=== PATIENT | female | born 1975 | race Caucasian/White ===

== ENCOUNTER 2019-09-08 15:52 | Inpatient (IN) | payer OTHER, SELFPAY ==
[2019-09-08] VITALS (20 sets, daily range): BP systolic 113–200; BP diastolic 72–141; PULSE 83–116; RESP 12–36; TEMP 37–38.8; O2SAT 75–100; BMI 45.3; BMI 45.2
--- NOTE | 2019-09-08 15:56 | EKG12_ITS ---
Test Reason : SOB Blood Pressure : / mmHG Vent. Rate : 083 BPM Atrial Rate : 083 BPM P-R Int : 136 ms QRS Dur : 082 ms QT Int : 382 ms P-R-T Axes : 037 -10 029 degrees QTc Int : 448 ms Normal sinus rhythm Minimal voltage criteria for LVH, may be normal variant Nonspecific T wave abnormality Abnormal ECG Confirmed by SUSAN DUKE ([id number]), mapping editor ASHLI WISE ([id number]) on 09/10/2019 1:57:28 PM Referred By: Socrates Hernandez Confirmed By:SUSAN DUKE
--- NOTE | 2019-09-08 15:56 | RAD_ITS ---
STUDY: X-RAY CHEST REASON FOR EXAM: Female, 44 years old. Dyspnea TECHNIQUE: Frontal view of the chest COMPARISON: X-ray chest May 10, 2011 FINDINGS: There is a right lower lung zone atelectasis and/or infiltrate. There are no pleural effusions. There is no pneumothorax. The heart is normal in size. The visualized osseous structures are within normal limits. RAD/Chest 1 View (Portable) IMPRESSION: Right lower lung zone atelectasis and/or infiltrate. Electronically Signed: Teodoro Brooks, at 16:30 EST Tel , Service support ,
--- NOTE | 2019-09-08 16:03 | NURSING ---
NO OLD EKGS
[2019-09-08 16:08] LABS: Absolute Lymphocyte Count 0.77 X10^3/uL (0.83-4.51); Basophil# 0.06 X10^3/uL; Basophil% 0.4 % (0-1); Eosinophil# 0.01 X10^3/uL; Eosinophils% 0.1 % (0-5); Hematocrit 46.7 % (37-47); Hemoglobin 15.3 g/dL (12.0-15.0); Lymphocyte # 0.77 X10^3/ul (4.0); Lymphocyte % 4.7 % (19-41); Mean Corp Hgb Conc 32.8 g/dL (32-36); Mean Corpuscular Hgb 29.7 pg (27.0-32.0); Mean Corpuscular Volume 90.7 fL (81-99); Monocyte# 1.38 X10^3/uL; Monocyte% 8.5 % (0-10); NRBC Flagged by Analyzer 0 % (0-5); Neutrophil # 13.95 X10^3/uL (2.7-7.7); Neutrophil % 85.6 % (47-70); Platelet Count 270 K/mm3 (150-450); RBC Distribution Width CV 13.6 % (11.6-14.6); Red Blood Count 5.15 M/mm3 (4.2-5.4); White Blood Count 16.3 K/mm3 (4.4-11.0)
[2019-09-08] MEDS: MethylPREDNISolone 125 MG/2 ML Vial IV (16:08)
[2019-09-08] MEDS: Ipratropium/Albuterol Sulfate 3 ML AMPUL.NEB INHALATION ×3 (16:13→22:55)
[2019-09-08] MEDS: 0.9% Normal Saline 1,000 ML 150 ML IV (16:16)
[2019-09-08] MEDS: Albuterol 2.5 MG/3 ML VIAL.NEB. INHALATION ×3 (16:17→16:18)
[2019-09-08 16:34] LABS: Anion Gap 5 (5-15); BUN 11 mg/dL (7-18); BUN/Creat Ratio 11.9 RATIO (10-20); Calcium,Total 9.2 mg/dL (8.5-10.1); Chloride 106 mmol/L (98-107); Creatinine, Serum 0.92 mg/dL (0.55-1.02); EST Glomerular Filtration Rate 70 mL/min (>60); Est Glom Filt Rate - Afr Amer 84 mL/min (>60); Estimated Creatinine Clearance 65.98 ml/min; Glucose 122 mg/dL (74-106); Lactic Acid 1.3 mmol/L (0.4-1.9); Potassium 4.4 mmol/L (3.5-5.1); Sodium Level 137 mmol/L (136-145)
[2019-09-08 16:46] LABS: Allen Test POS; Base Excess -1 mmol/L (-2 to +2); Bicarbonate 24.2 mmol/L (22-26); Blood Gas Specimen Type ART; EPAP 8; FI02 100; IPAP 16; PO2 89 mmHG (75-100); RR 12; SITE L Radial; SO2 96 % (95-99); Time Given 1635; Total Carbon Dioxide 26 mmol/L; pCO2 43.3 mmHg (35-45); pH 7.36 (7.35-7.45)
--- NOTE | 2019-09-08 16:55 | NURSING ---
DR MERINO FOR DR PORTER
[2019-09-08 16:57] LABS: D-Dimer Quantitative (DVT/PE) 1.27 FEU/ug/m (0.27-0.49)
--- NOTE | 2019-09-08 16:59 | ED.VISSUMM ---
- ER Visit Summary Date of Service: 09/08/19 Chief Complaint: [Fever and cough] History of Present Illness: The patient is a 44 F [presents the emergency department with symptoms that started yesterday. Patient started coughing and having increased difficulty breathing yesterday. Cough is been productive at times. Breathing got severe today. She denies recent travel or surgery. No history of PE or DVT. Patient states she had pneumonia 12 years ago. Patient has no medical history otherwise. Patient is a smoker. She denies sick contacts.] Physical Examination: [HEENT-PERRLA, EOMI. Cranial nerves II through XII grossly intact. TMs clear. Mucous membranes moist. No adenopathy. Cardiovascular-regular rate and rhythm without murmur or ectopy Lungs-patient arrives in respiratory distress. She has diminished breath sounds bilaterally. She is tachypneic with conversational dyspnea. She is got accessory muscle use and retractions noted. Patient has wheezing throughout. He has rhonchi and rales especially in the right base. Abdomen-normoactive bowel sounds, soft, nontender, no rebound or rigidity, no peritoneal signs. Extremities-intact ?4, normal range of motion, normal pulses, atraumatic] Test Results: [CBC with differential obtained showing a 16.3, hemoglobin 15, hematocrit 47, placed to 70. Chemistries unremarkable. Troponin is less than 0.015. Lactate was 1.3. Influenza was negative. Chest x-ray showed right lower lobe infiltrate. D-dimer obtained was elevated 1.27.] Blood gas obtained showed a pH of 7.35, CO2 of 43, PO2 of 89, bicarb 24, pulse ox of 96% on an FiO2 of 100%. The screen was negative. Emergency Department Course and Treatment: [She was started on BiPAP. Patient had good improvement in respiratory status with this. Patient was given DuoNeb aerosol as well as albuterol aerosols. Patient started on Solu-Medrol 125 mg IV. Patient started on Rocephin and Zithromax IV. Treatment Plan: [Admit] Disposition: [Admit] Impression: [Community-acquired pneumonia Hypoxemia Respiratory failure] This note was generated with [employer] software. It may contain incorrect words, spelling, and punctuation that were not noted in review of the chart prior to signing ED Disposition - Plan for ED Patient: Referrals: Fast,Sandy, DO [Primary Care Provider] -
--- NOTE | 2019-09-08 16:59 | NURSING ---
ICU [facility] PNEUMONIA, HYPOXIA, RESP FAILURE
--- NOTE | 2019-09-08 17:07 | NURSING ---
CV ICU 203
[2019-09-08] MEDS: Ceftriaxone 1 GM/50 ML BAG IV (17:10)
--- NOTE | 2019-09-08 17:10 | HP.PCM_ITS ---
<Karthik Harry - Last Filed: 09/08/19 17:10> Problem List (1) Acute respiratory failure with hypoxia Status: Acute (2) Sepsis Status: Acute (3) Pneumonia Status: Acute (4) SREE (obstructive sleep apnea) Status: Chronic (5) Morbid obesity Status: Chronic (6) HTN (hypertension) Status: Chronic History of Present Illness Date of Admission: 09/08/19 Chief Complaint: SOB The patient is a 44 year old F with past medical history of obstructive sleep apnea, noncompliant with CPAP therapy, morbid obesity, nicotine abuse (3/4 ppd smoker since age 11), questionable diagnosis of COPD, depression, who presented to the emergency room with chief complaint of shortness of breath. The patient has been sick since Monday night. She woke up feeling ill she had an episode of nausea and vomiting. She was having increased sinus drainage and cough. Over the next several days she developed severe chills, worsening cough with yellow sputum production, and shortness of breath. 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 She has had pneumonia once before about 12 years ago. She thinks she may have COPD however she denies formal testing in the past. She does report pleuritic chest pain, worse with deep breathing on the right side. When she arrived in the ER she was 75% on room air. She normally does not need any oxygen at baseline. She was placed on BiPAP as she was satting poorly on 15 L/min nonrebreather. She appears to have sepsis secondary to pneumonia, chest x-ray shows right lower lobe pneumonia, she has a fever, tachypnea, pulse greater than 90, negative lactate. Blood pressure is also markedly elevated in the emergency room. She will be admitted to the ICU on BiPAP. [] Past Medical History Past Medical History (Chronic Problems): Chronic Problems SREE (obstructive sleep apnea) (Chronic) Morbid obesity (Chronic) HTN (hypertension) (Chronic) Allergies Jrvtvin-Coy-Ksj Reductase Inhibitor Allergy (Verified 09/08/19 15:56) Swelling Home Medications: Ambulatory Orders Medication Instructions Recorded Bupropion HCl [Wellbutrin Sr] 100 mg PO BID 09/08/19 Surgical History: cholecystectomy Psychiatric History: Depression [employer] History: No pertinent [employer] history Lives: Spouse/ Significant Other Smoking Status: Current every day smoker Review of Systems Constitutional: Reports: Chills, Fever, Fatigue. Denies: Weight Change HEENT: Denies: Head Aches, Sinus Congestion, Sinus Drainage Cardiovascular: Denies: Chest Pain, Palpitations Respiratory: Reports: Cough, Pleuritic Pain, Shortness of Breath, Shortness of breath at rest, Shortness of breath upon exertion, Sputum production. Denies: Hemoptysis Gastrointestinal: Reports: Nausea, Vomiting. Denies: Abdominal Pain Genitourinary: Denies: Dysuria Musculoskeletal: Denies: Joint Pain, Joint Tenderness Skin: Denies: Rash, Wounds Neurological: Denies: Numbness, Tingling, Focal weakness Psychiatric: Denies: Anxiety, Depression, Homicidal Ideations, Suicidal Ideations Hematologic/ Lymphatic: Denies: Easy Bruising, Easy Bleeding VTE Information - Inpt Only VTE Present on Admission: No VTE Mechan Device Prophylaxis: None VTE Pharm Prophylaxis ordered?: Yes Patient Problems: Active and Suspected Problems Acute respiratory failure with hypoxia (Acute) Pneumonia (Acute) Sepsis (Acute) - Physical Exam Vitals/I&O's: Vital Signs Temp Pulse Resp BP Pulse Ox 101.8 F H 89 28 H 200/89 H 95 09/08/19 15:56 09/08/19 16:19 09/08/19 16:19 09/08/19 16:19 09/08/19 16:19 Oxygen Flow Rate (L/min) 15 Oxygen Delivery Method Bi-pap Weight: 264 lb 6.4 oz Body Mass Index (BMI) 45.3 General: Alert, Oriented x3, Cooperative HEENT: Atraumatic, PERRLA, EOMI, Normocephalic Neck: Supple, No JVD, Negative Carotid Bruits Lungs: Diminished, Rales - Right middle and right lower lobe rales, Wheezes - Faint end expiratory wheeze Cardiovascular: Regular rate, No murmurs Abdomen: Bowel Sounds Present, Soft, Non Tender, Obese Extremities: No edema, Capillary Refill Less than 3 Seconds Skin: No rashes, No breakdown Musculoskeletal: No Tenderness to Palpation of Joints or Extremities Neurological: Cranial nerves II-XII grossly intact Psych/Mental Status: Normal Affect, Appropriate, Alert and oriented to time, place, person, mood and affect Microbiology Past 72 Hours 09/08/19 16:05 Mucosa - Nasopharyngeal Influenza Types A,B Direct FA (BRANDON) - Final Laboratory Results 09/08/19 16:00: WBC 16.3 H, RBC 5.15, Hgb 15.3 H, Hct 46.7, MCV 90.7, MCH 29.7, MCHC 32.8, RDW Std Deviation 45.0 H, RDW Coeff of Km 13.6, Plt Count 270, MPV 11.0, Immature Gran % (Auto) 0.700, Neut % (Auto) 85.6 H, Lymph % (Auto) 4.7 L, [place] % (Auto) 8.5, Eos % (Auto) 0.1, Baso % (Auto) 0.4, Absolute Neuts (auto) 14.0 H, Absolute Lymphs (auto) 0.77 L, Nucleated RBC % 0 09/08/19 16:00: D-Dimer Quant (PE/DVT) Cancelled 09/08/19 16:00: Sodium 137, Potassium 4.4, Chloride 106, Carbon Dioxide 26.0, Anion Gap 5, BUN 11, Creatinine 0.92, Estim Creat Clear Calc 65.98, Est GFR (MDRD) Af Amer 84, Est GFR (MDRD) Non-Af 70, BUN/Creatinine Ratio 11.9, Glucose 122 H, Calcium 9.2, Troponin I < 0.015 09/08/19 16:00: Lactic Acid 1.3 09/08/19 16:25: D-Dimer Quant (PE/DVT) 1.27 H* 09/08/19 16:40: Specimen Type ART, Sample Site L Radial, pH 7.36, Bicarbonate Actual 24.2, POC Total CO2 26, Base Excess -1, O2 Saturation 96, O2 % 100, ABG p CO2 43.3, ABG pO2 89, Ady Test POS, Respiration Rate 12, O2 Delivery Device Bi / C PAP, EPAP 8, IPAP 16, Blood Gas Notified Whom ED MD, Blood Gas Notified Time 1635 Current Medications Sodium Chloride () 1,000 mls @ 150 mls/hr IV .Q6H40M ONE Stop: 09/08/19 22:35 Last Admin: 09/08/19 16:16 Dose: 150 mls/hr Documented by: Ceftriaxone Sodium (Rocephin) 1 gm in 50 mls @ 100 mls/hr IV X1 ONE Stop: 09/08/19 17:14 Last Admin: 09/08/19 17:10 Dose: 100 mls/hr Documented by: Azithromycin 500 mg/ Dextrose 255 mls @ 250 mls/hr IV X1 ONE Stop: 09/08/19 17:46 Assessment/Plan All Active Problems Acute respiratory failure with hypoxia (Acute) Pneumonia (Acute) Sepsis (Acute) 1. Right lower lobe pneumonia, arbqtsrki-fbgpgkaf-nxzbwns was 75% on room air, required BiPAP in the emergency room. Sepsis criteria met with fever with T-max 101.8, tachypnea, pulse greater than 90, leukocytosis right lower lobe infiltrate on chest x-ray. On BiPAP her ABG was within normal limits. D-dimer is elevated, will obtain CTA of the chest. Lactic acid is negative. Troponin is negative. Obtain urine antigens, obtain respiratory panel. Rapid flu was negative. Obtain sputum cultures, blood cultures, urine culture. 2. Questionable underlying COPD-patient says she may have this however was never formally tested, does not use aerosols at home. She has been placed on aerosols and Solu-Medrol. She needs outpatient pulmonary follow-up with PFTs. 3. Obstructive obstructive sleep apnea-noncompliant with CPAP at home. Continue BiPAP while here. 4. Hypertensive urgency-BP up to 200/89 in the emergency room. Will add PRN hydralazine. 5. Morbid obesity-calorie controlled diet and dietitian evaluation. 6. Nicotine abuse-patch if desired. Smokes 3/4 packs/day since age 11. 7. Depression-Wellbutrin DVT prophylaxis: Lovenox This patient was seen by Karthik Harry PA-C under the supervision of Doctor Mary. <Socrates Hernandez F - Last Filed: 09/08/19 17:33> History of Present Illness The patient is a 44 year old F [] Past Medical History Allergies Wefzxrl-Frg-Yci Reductase Inhibitor Allergy (Verified 09/08/19 15:56) Swelling - Physical Exam Vitals/I&O's: Vital Signs Temp Pulse Resp BP Pulse Ox 98.9 F 112 H 26 H 172/80 H 99 09/08/19 17:00 09/08/19 17:00 09/08/19 17:00 09/08/19 17:00 09/08/19 17:00 Oxygen Flow Rate (L/min) 15 Oxygen Delivery Method Bi-pap Weight: 264 lb 6.4 oz Body Mass Index (BMI) 45.3 Microbiology Past 72 Hours 09/08/19 16:05 Mucosa - Nasopharyngeal Influenza Types A,B Direct FA (BRANDON) - Final Laboratory Results 09/08/19 16:00: WBC 16.3 H, RBC 5.15, Hgb 15.3 H, Hct 46.7, MCV 90.7, MCH 29.7, MCHC 32.8, RDW Std Deviation 45.0 H, RDW Coeff of Km 13.6, Plt Count 270, MPV 11.0, Immature Gran % (Auto) 0.700, Neut % (Auto) 85.6 H, Lymph % (Auto) 4.7 L, [place] % (Auto) 8.5, Eos % (Auto) 0.1, Baso % (Auto) 0.4, Absolute Neuts (auto) 14.0 H, Absolute Lymphs (auto) 0.77 L, Nucleated RBC % 0 09/08/19 16:00: D-Dimer Quant (PE/DVT) Cancelled 09/08/19 16:00: Sodium 137, Potassium 4.4, Chloride 106, Carbon Dioxide 26.0, Anion Gap 5, BUN 11, Creatinine 0.92, Estim Creat Clear Calc 65.98, Est GFR (MDRD) Af Amer 84, Est GFR (MDRD) Non-Af 70, BUN/Creatinine Ratio 11.9, Glucose 122 H, Calcium 9.2, Troponin I < 0.015 09/08/19 16:00: Lactic Acid 1.3 09/08/19 16:25: D-Dimer Quant (PE/DVT) 1.27 H* 09/08/19 16:40: Specimen Type ART, Sample Site L Radial, pH 7.36, Bicarbonate Actual 24.2, POC Total CO2 26, Base Excess -1, O2 Saturation 96, O2 % 100, ABG pCO2 43.3, ABG pO2 89, Ady Test POS, Respiration Rate 12, O2 Delivery Device Bi / C PAP, EPAP 8, IPAP 16, Blood Gas Notified Whom ED MD, Blood Gas Notified Time 1639 Current Medications Sodium Chloride () 1,000 mls @ 150 mls/hr IV .Q6H40M ONE Stop: 09/08/19 22:35 Last Admin: 09/08/19 16:16 Dose: 150 mls/hr Documented by: Azithromycin 500 mg/ Dextrose 255 mls @ 250 mls/hr IV X1 ONE Stop: 09/08/19 17:46 Labetalol HCl (Trandate) 10 mg IV Q4H PRN PRN PRN Reason: SBP GREATER THAN 180 Code Visit Addendum: Dr. Hernandez I personally examined the patient and reviewed the chart. I agree with the above. 44-year-old female with morbid obesity and SREE but she is noncompliant with her CPAP presents in respiratory distress with sepsis and acute hypoxic respiratory failure secondary to right lower lobe pneumonia. Initial flu was negative however a further respiratory panel is being done. She also had an elevated d-dimer so CTA of her chest was obtained as well. We will continue with IV fluids and BiPAP therapy and place her on Rocephin and azithromycin. She will be admitted to the ICU and also placed on steroids and DuoNeb's as she does have some expiratory wheezing on exam. She says that her primary care doctor has been concerned that she might have COPD but she is never been tested. Also provide her with PRN labetalol for her blood pressures up into the 200s. Inpatient E&M: 54939 Init Hosp L3
[2019-09-08] MEDS: Ketorolac 30 MG/ML Syringe IV (17:24)
--- NOTE | 2019-09-08 17:39 | ED.RN ---
called report to Art in ICU
--- NOTE | 2019-09-08 17:51 | CT_ITS ---
STUDY: CTA CHEST REASON FOR EXAM: Female, 44 years old. Shortness of breath, possible pulmonary embolism RADIATION DOSAGE (If Supplied By Facility): CTDIvol = ( 12.66 ) mGy, DLP = ( 539.46 ) mGycm TECHNIQUE: The examination was performed with the intravenous administration of IV 100mL Isovue-370. Post-processing of the angiographic images was performed, with multiplanar reformation and 3D reconstruction. Individualized dose optimization techniques were used for this CT. COMPARISON: None. FINDINGS: Examination is technically degraded due to patient''s large body habitus resulting in severely elevated image noise. There is suboptimal contrast enhancement and amount resulting in heterogeneous attenuation in the noncentral pulmonary arteries. Some diagnostic information is available. There is no large central acute pulmonary embolism. Lobar and segmental arteries are not reliably evaluated. There is no right heart strain. Cardiac chambers are normal in size and shape. Pericardium is normal. There is pectus excavatum deformity of the sternum. There are multiple predominantly upper and anterior distribution lobular groundglass opacities and right upper lobe posterior segment irregular consolidation. Central airways are patent. There is no pulmonary edema or pleural effusions. There is severe elevation of body habitus. CT/CTA Chest W/WO Contrast IMPRESSION: 1. Technically limited examination. 2. No large acute central pulmonary embolism. 3. Unable to evaluate lobar and segmental branches. 4. Recommend ultrasonography of the lower extremity venous system to exclude presence of deep venous thrombosis and complete the risk stratification of the patient at risk for venous thromboembolic disease. 5. Atypical distribution anterior and upper lobe ground glass opacities. This appearance is nonspecific, possibly related to viral pneumonia. 6. Pectus excavatum congenital sternal deformity. 7. Severely elevated BMI. Electronically Signed: Oumar Ozuna, at 19:15 EST Tel , Service support ,
[2019-09-08] MEDS: 0.9% Normal Saline 1,000 ML 125 ML IV (20:05)
[2019-09-08] MEDS: LORazepam 2 MG/ML Syringe 1 MG IV (22:43)
[2019-09-09] VITALS (55 sets, daily range): BP systolic 77–148; BP diastolic 44–96; PULSE 65–110; RESP 14–29; TEMP 36.4–38.4; O2SAT 92–100; BMI 45.1
--- NOTE | 2019-09-09 00:35 | NURSING ---
Nicolas Nagel, notified of patient intubation, and was told we are currently awaiting the dr to come on the floor and respiratory to get to the floor to proceed with intubation at this time. would like for us to notify him after the intubation to let him know how she tolerated the procedure.
--- NOTE | 2019-09-09 00:40 | NURSING ---
Pt having increased work of breathing on BiPap. After discussion with pt, pt agreed to be intubated. was contacted for update on pt condition and consent, due to pt inability to sign.
--- NOTE | 2019-09-09 00:45 | NURSING ---
Dr. Rasmussen at bedside to intubate. 0049 20mg etomidate given 48 succs 110mg given per Dr. Rasmussen 005 intubation unsuccessful, no color change noted 005 ett removed, pt bagged by respiratory in preparation for attempt 2 58 fentanyl 50mcg given, versed 4mg given 100 100mg succs given per dr rasmussen 101 ETT 7.5 placed 25 at lip, positive color change, lissa breath sounds
[2019-09-09] MEDS: Etomidate 20 MG/10 ML Vial IV (00:49)
[2019-09-09] MEDS: 0.9% Saline Lock 10 ML Syringe IV ×3 (00:50→21:29)
[2019-09-09] MEDS: fentaNYL 100 MCG/2 ML Ampul 50 MCG IV (00:59)
[2019-09-09] MEDS: Midazolam 2 MG/2 ML Syringe 4 MG IV (00:59)
[2019-09-09] MEDS: fentaNYL drip 100 ML 2.5 MCG IV (01:05)
--- NOTE | 2019-09-09 01:05 | RAD_ITS ---
STUDY: X-RAY CHEST REASON FOR EXAM: Female, 44 years old. ET AND OG TUBE PLACEMENTS -- BEST IMAGES POSSIBLE, PATIENT WOULD NOT HOLD STILL TECHNIQUE: 1 view COMPARISON: September 08, 2019 FINDINGS: An NG tube and ET tube are in place with the ET tube 3.2 cm above the evan. The heart is normal in size. There are patchy areas of consolidations in the left midlung field and in the right upper and lower lung hanley. Pneumonia suspected. No pleural effusions. Normal visualized thoracic spine. Normal visualized ribs, clavicles, and shoulders. There is no demonstrated abnormality of the visualized soft tissue structures of the upper abdomen. RAD/Chest 1 View (Portable) IMPRESSION: NG tube and ET tube in place with the ET tube 3.2 cm above the evan. Patchy consolidations in both lungs. Pneumonia suspected Electronically Signed: Perfecto Espinoza MD at 2:57 EST Tel , Service support ,
--- NOTE | 2019-09-09 01:07 | PCM.PN.BLA ---
Progress Note Critical care notes: Initial nurse reported that patient is having tachypnea and was anxious. Ativan IV was given. However patient continued to have increased respiratory distress with tachypnea. Patient requested to be intubated. Patient was examined at the bedside. Patient was lethargic. S1-S2 present; tachycardia. Tachypnea with diffuse rhonchi. Extremities without edema. Acute respiratory failure secondary to sepsis from pneumonia. Possible gram-negative or gram-negative . Will intubate patient. On ceftriaxone and azithromycin. Will give a one-time dose of vancomycin and will check MRSA nasal screen. Stop ceftriaxone and azithromycin for now. And start patient on Zosyn. Continue hjuzby-amq-toqds Solu-Medrol. Stress ulcer prophylaxis with Pepcid. Continue DVT prophylaxis with enoxaparin. Critical time 35 minutes from 1225 a.m. to 1:00. Critical time include time at the bedside with patient reviewing charts and communicating with nursing team. It did not include intubation time STROKE Vital Signs/Narrative: Vital Signs Temp Pulse Resp BP BP Pulse Ox 09/09/19 00:00 101.1 F H 107 H 26 H 148/64 H 94 09/08/19 23:37 116 H 09/08/19 23:00 96 28 H 172/88 H 93 09/08/19 22:00 97 32 H 172/98 H 96
--- NOTE | 2019-09-09 01:08 | PN_ITS ---
Progress Note Insert ET Endotracheal Intubation Note Indication: Respiratory Distress Performed by: Dr. Tree Fu Initially etomidate 20 mg and succinylcholine 100 mg was given and an attempt was made to intubate with a 7.5?Ukrainian endotracheal tube and with a glide scope. After attempted intubation there was no color change and patient was noted to be dropping in her oxygen saturation. Patient was Ambu bagged. Versed 4 mg and fentanyl 50 mg was then given in attempt to reintubate patient with direct laryngoscopy. Patient started clamping on her jaws and additional succinylcholine 100 mg was given. ET tube was placed at the lips. There was color change. And there was bilateral breath sounds. Chest x-ray independently reviewed showed endotracheal tube in trachea. Patient with oxygen saturation in the high 90s. STROKE Vital Signs/Narrative: Vital Signs Temp Pulse Resp BP BP Pulse Ox 09/09/19 00:00 101.1 F H 107 H 26 H 148/64 H 94 09/08/19 23:37 116 H 09/08/19 23:00 96 28 H 172/88 H 93 09/08/19 22:00 97 32 H 172/98 H 96 Code Visit Procedures: [id number] Insert Emergency Airway
[2019-09-09] MEDS: Propofol 10MG/Ml 1,000 MG/100 ML Bottle 7.2 MG CONT INF (01:10)
[2019-09-09] MEDS: Ipratropium/Albuterol Sulfate 3 ML AMPUL.NEB INHALATION ×7 (01:57→22:50)
[2019-09-09 03:25] LABS: Allen Test POS; Base Excess -2 mmol/L (-2 to +2); Bicarbonate 24.9 mmol/L (22-26); Blood Gas Specimen Type ART; FI02 80; Mode A-C; O2 Delivery Device Vent; PEEP 5; PO2 80 mmHG (75-100); RR 14; SITE L Radial; SO2 93 % (95-99); Time Given 315; Total Carbon Dioxide 27 mmol/L; Vt 500; pCO2 57.3 mmHg (35-45); pH 7.25 (7.35-7.45)
[2019-09-09 04:44] LABS: Absolute Lymphocyte Count 0.47 X10^3/uL (0.83-4.51); Absolute Neutrophil Count 21.5 X10^3/uL (2.0-7.7); Basophil# 0.04 X10^3/uL; Basophil% 0.2 % (0-1); Eosinophil# 0.11 X10^3/uL; Eosinophils% 0.5 % (0-5); Hematocrit 42.5 % (37-47); Hemoglobin 13.5 g/dL (12.0-15.0); Lymphocyte # 0.47 X10^3/ul (4.0); Mean Corp Hgb Conc 31.8 g/dL (32-36); Mean Corpuscular Hgb 29.1 pg (27.0-32.0); Mean Corpuscular Volume 91.6 fL (81-99); Mean Platelet Vol. 11.3 fl (6.2-12.0); Monocyte% 4.7 % (0-10); NRBC Flagged by Analyzer 0 % (0-5); Neutrophil # 21.46 X10^3/uL (2.7-7.7); POSITIVE DIFFERENTIAL YES; POSITIVE MORPHOLOGY YES; Platelet Count 235 K/mm3 (150-450); RBC Distribution Width CV 14.1 % (11.6-14.6); RBC Distribution Width SD 47.1 fl (35.1-43.9); Red Blood Count 4.64 M/mm3 (4.2-5.4); White Blood Count 23.3 K/mm3 (4.4-11.0)
[2019-09-09 04:52] LABS: Differential Indicated SCAN CRITERIA MET
[2019-09-09] MEDS: CHLORHEXIDINE GLUC 2% CLOTH 1 EACH TOWELETTE TOPICAL (04:58)
[2019-09-09 05:17] LABS: Anion Gap 7 (5-15); BUN 15 mg/dL (7-18); BUN/Creat Ratio 11.6 RATIO (10-20); CPK Total, Creatine Kinase 618 U/L (26-192); Chloride 105 mmol/L (98-107); Creatinine, Serum 1.29 mg/dL (0.55-1.02); EST Glomerular Filtration Rate 47 mL/min (>60); Est Glom Filt Rate - Afr Amer 57 mL/min (>60); Estimated Creatinine Clearance 47.06 ml/min; Glucose 192 mg/dL (74-106); Potassium 4.2 mmol/L (3.5-5.1); Sodium Level 137 mmol/L (136-145); Triglycerides 80 mg/dL
[2019-09-09] MEDS: Propofol 10MG/Ml 1,000 MG/100 ML Bottle 17.9 MG CONT INF (05:35)
[2019-09-09 06:08] LABS: Differential Comment SCANNED
--- NOTE | 2019-09-09 06:35 | CON.PCM_ITS ---
Reason for Consult Date of Consultation: 09/09/19 Reason for Consultation: Acute respiratory failure History of Present Illness: The patient is a 44-year-old female, with a history as outlined below, who presented to the emergency department on September 08 with complaints of shortness of breath, fever and cough. The patient has an apparent history of suspected COPD, obstructive sleep apnea for which she is noncompliant with the use of nocturnal Pap therapy, chronic nicotine dependency and depression. On presentation to the emergency department, the patient was noted to be febrile with a temperature of 101.8 ?F. The patient was tachypneic and hypoxemic, saturating 75% on room air. Initial laboratory evaluation revealed an elevated white blood cell count to 16,000 with left shift. D-dimer was elevated at 1.27. Chemistry profile was unremarkable. Lactate was within normal limits at 1.3. Troponin was negative. MRSA screen was negative. Plain film chest x-ray revealed evidence of a possible right lower lobe infiltrate. A CTA chest was subsequently obtained and was significantly limited due to patient artifact. There was evidence of nonspecific upper lobe predominant groundglass opacities. Due to the patient's respiratory status, she was placed on BiPAP therapy. The p atient was given aerosol treatments, IV steroids and IV antibiotics. She was subsequently admitted to the medical intensive care unit for further management. Overnight, the patient decompensated from a respiratory standpoint and did require emergent intubation. 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 - Physical Exam Vitals/I&O's: Vital Signs Temp Pulse Resp BP Pulse Ox 98.6 F 82 16 91/48 L 94 09/09/19 06:00 09/09/19 06:00 09/09/19 06:00 09/09/19 06:00 09/09/19 06:00 Oxygen Flow Rate (L/min) 6 Oxygen Delivery Method Mechanical Ventilator Weight: 262 lb 9.129 oz Body Mass Index (BMI) 45.2 Intake and Output for Last 24 Hours 09/07/19 09/08/19 09/09/19 23:59 23:59 23:59 Intake Total 1727.08 / 1727.08 499.89 / 499.89 Output Total 300 / 300 65 / 65 Balance 1427.08 / 1427.08 434.89 / 434.89 General: - - Intubated, sedated and mechanically ventilated. HEENT: Atraumatic, PERRLA, Normocephalic Oral: No Gingival or Mucosal Lesions/ Ulcerations, - - Endotracheal and OG tubes currently in place Neck: Supple, No Nodes, Trachea Midline Lungs: No rhonchi, No wheeze, No rales, Diminished Cardiovascular: Regular rate, Regular Rhythm, Normal S1, Normal S2, No murmurs Abdomen: Bowel Sounds Present, Soft, Non Tender, Obese Extremities: No clubbing, No cyanosis, No edema Skin: No breakdown Musculoskeletal: No Tenderness to Palpation of Joints or Extremities Lymphatic: No Cervical, Supraclavicular, or Inguinal Adenopathy Neurological: - - No focal neurological deficits. Currently sedated on the vent. Labs (Last 48 Hours) 09/08/19 09/08/19 09/08/19 16:00 16:00 16:00 WBC 16.3 H RBC 5.15 Hgb 15.3 H Hct 46.7 MCV 90.7 MCH 29.7 MCHC 32.8 RDW Std Deviation 45.0 H RDW Coeff of Km 13.6 Plt Count 270 MPV 11.0 Immature Gran % (Auto) 0.700 Neut % (Auto) 85.6 H Lymph % (Auto) 4.7 L [place] % (Auto) 8.5 Eos % (Auto) 0.1 Baso % (Auto) 0.4 Absolute Neuts (auto) 14.0 H Absolute Lymphs (auto) 0.77 L Nucleated RBC % 0 Differential Comment D-Dimer Quant (PE/DVT) Cancelled Specimen Type Sample Site pH Bicarbonate Actual POC Total CO2 Base Excess O2 Saturation O2 % ABG pCO2 ABG pO2 Ady Test Respiration Rate O2 Delivery Device Vent Mode Tidal Volume POC PEEP EPAP IPAP Blood Gas Notified Whom Blood Gas Notified Time Sodium 137 Potassium 4.4 Chloride 106 Carbon Dioxide 26.0 Anion Gap 5 BUN 11 Creatinine 0.92 Estim Creat Clear Calc 65.98 Est GFR (MDRD) Af Amer 84 Est GFR (MDRD) Non-Af 70 BUN/Creatinine Ratio 11.9 Glucose 122 H Lactic Acid Calcium 9.2 Total Creatine Kinase Troponin I < 0.015 Triglycerides MRSA (PCR) 09/08/19 09/08/19 09/08/19 16:00 16:25 16:40 WBC RBC Hgb Hct MCV MCH MCHC RDW Std Deviation RDW Coeff of Km Plt Count MPV Immature Gran % (Auto) Neut % (Auto) Lymph % (Auto) [place] % (Auto) Eos % (Auto) Baso % (Auto) Absolute Neuts (auto) Absolute Lymphs (auto) Nucleated RBC % Differential Comment D-Dimer Quant (PE/DVT) 1.27 H* Specimen Type ART Sample Site L Radial pH 7.36 Bicarbonate Actual 24.2 POC Total CO2 26 Base Excess -1 O2 Saturation 96 O2 % 100 ABG pCO2 43.3 ABG pO2 89 Ady Test POS Respiration Rate 12 O2 Delivery Device Bi / C PAP Vent Mode Tidal Volume POC PEEP EPAP 8 IPAP 16 Blood Gas Notified Whom ED Blood Gas Notified Time 1635 Sodium Potassium Chloride Carbon Dioxide Anion Gap BUN Creatinine Estim Creat Clear Calc Est GFR (MDRD) Af Amer Est GFR (MDRD) Non-Af BUN/Creatinine Ratio Glucose Lactic Acid 1.3 Calcium Total Creatine Kinase Troponin I Triglycerides MRSA (PCR) 09/09/19 09/09/19 09/09/19 02:30 03:17 04:15 WBC RBC Hgb Hct MCV MCH MCHC RDW Std Deviation RDW Coeff of Km Plt Count MPV Immature Gran % (Auto) Neut % (Auto) Lymph % (Auto) [place] % (Auto) Eos % (Auto) Baso % (Auto) Absolute Neuts (auto) Absolute Lymphs (auto) Nucleated RBC % Differential Comment D-Dimer Quant (PE/DVT) Specimen Type ART Sample Site L Radial pH 7.25 L Bicarbonate Actual 24.9 POC Total CO2 27 Base Excess -2 O2 Saturation 93 L O2 % 80 ABG pCO2 57.3 H ABG pO2 80 Ady Test POS Respiration Rate 14 O2 Delivery Device Vent Vent Mode A-C Tidal Volume 500 POC PEEP 5 EPAP IPAP Blood Gas Notified Whom [facility] Blood Gas Notified Time 315 Sodium 137 Potassium 4.2 Chloride 105 Carbon Dioxide 25.0 Anion Gap 7 BUN 15 Creatinine 1.29 H Estim Creat Clear Calc 47.06 Est GFR (MDRD) Af Amer 57 L Est GFR (MDRD) Non-Af 47 L BUN/Creatinine Ratio 11.6 Glucose 192 H Lactic Acid Calcium 8.0 L Total Creatine Kinase 618 H Troponin I Triglycerides 80 MRSA (PCR) Negative 09/09/19 04:15 WBC 23.3 H RBC 4.64 Hgb 13.5 Hct 42.5 MCV 91.6 MCH 29.1 MCHC 31.8 L RDW Std Deviation 47.1 H RDW Coeff of Km 14.1 Plt Count 235 MPV 11.3 Immature Gran % (Auto) 0.600 Neut % (Auto) 92.0 H Lymph % (Auto) 2.0 L [place] % (Auto) 4.7 Eos % (Auto) 0.5 Baso % (Auto) 0.2 Absolute Neuts (auto) 21.5 H Absolute Lymphs (auto) 0.47 L Nucleated RBC % 0 Differential Comment SCANNED D-Dimer Quant (PE/DVT) Specimen Type Sample Site pH Bicarbonate Actual POC Total CO2 Base Excess O2 Saturation O2 % ABG pCO2 ABG pO2 Ady Test Respiration Rate O2 Delivery Device Vent Mode Tidal Volume POC PEEP EPAP IPAP Blood Gas Notified Whom Blood Gas Notified Time Sodium Potassium Chloride Carbon Dioxide Anion Gap BUN Creatinine Estim Creat Clear Calc Est GFR (MDRD) Af Amer Est GFR (MDRD) Non-Af BUN/Creatinine Ratio Glucose Lactic Acid Calcium Total Creatine Kinase Troponin I Triglycerides MRSA (PCR) Microbiology 09/08/19 16:05 Mucosa - Nasopharyngeal Respiratory Panel (PCR) - Final 09/08/19 21:57 Urine, Random Legionella Antigen - Final 09/08/19 21:57 Urine, Random Streptococcus pneumoniae Antigen (M - Final 09/08/19 16:05 Mucosa - Nasopharyngeal Influenza Types A,B Direct FA (BRANDON) - Final Clinical Impression(s) from Imaging Studies Chest X-Ray 09/08/19 15:56 IMPRESSION: Right lower lung zone atelectasis and/or infiltrate. Electronically Signed: Teodoro Brooks, at 16:30 EST Tel , Service support , Chest CTA 09/08/19 17:51 IMPRESSION: 1. Technically limited examination. 2. No large acute central pulmonary embolism. 3. Unable to evaluate lobar and segmental branches. 4. Recommend ultrasonography of the lower extremity venous system to exclude presence of deep venous thrombosis and complete the risk stratification of the patient at risk for venous thromboembolic disease. 5. Atypical distribution anterior and upper lobe ground glass opacities. This appearance is nonspecific, possibly related to viral pneumonia. 6. Pectus excavatum congenital sternal deformity. 7. Severely elevated BMI. Electronically Signed: Oumar Ozuna, at 19:15 EST Tel , Service support , Chest X-Ray 09/09/19 01:05 IMPRESSION: NG tube and ET tube in place with the ET tube 3.2 cm above the evan. Patchy consolidations in both lungs. Pneumonia suspected Electronically Signed: Perfecto Espinoza MD at 2:57 EST Tel , Service support , Current Medications Acetaminophen (Tylenol) 650 mg PO Q6H PRN PRN PRN Reason: Pain Score 1-10/Temp > 100.7 F Albuterol/Ipratropium (Duoneb) 3 ml INHALATION Q4HWA.RT EZE Last Admin: 09/09/19 01:57 Dose: 3 ml Documented by: Bupropion HCl (Wellbutrin Sr (100mg Tablets)) 100 mg PO BID EZE Last Admin: 09/08/19 22:15 Dose: Not Given Documented by: Chlorhexidine Gluconate () 1 each TOPICAL DAILY EZE Last Admin: 09/09/19 04:58 Dose: 1 each Documented by: Chlorhexidine Gluconate () 15 ml PO BID EZE Dextrose (D50w Syringe) 0 gm IV X1 PRN; Protocol PRN Reason: Hypoglycemia Enoxaparin Sodium (Lovenox) 40 mg SC DAILY [facility] Famotidine (Pepcid) 20 mg PO BID [facility] Glucagon () 1 mg IM .X1 PRN PRN Reason: Hypoglycemia Fentanyl () 100 mls @ 2.5 mls/hr IV UD [facility]; Protocol Last Titration: 09/09/19 06:00 Dose: 100 mcg/hr, 10 mls/hr Documented by: Propofol (Diprivan) 1,000 mg in 100 mls @ 7.177 mls/hr CONT INF .Q12H EZE; Protocol Last Titration: 09/09/19 06:00 Dose: 25 mcg/kg/min, 17.9 mls/hr Documented by: Piperacillin Sod/Tazobactam (Sod 3.375 gm/ Sodium Chloride) 50 mls @ 12.5 mls/hr IV Q8 [facility] Sodium Chloride () 250 mls @ 15 mls/hr IV .[id number] PRN PRN Reason: Saline Flush Last Infusion: 09/09/19 04:05 Dose: 15 mls/hr Documented by: Labetalol HCl (Trandate) 10 mg IV Q4H PRN PRN PRN Reason: SBP GREATER THAN 180 Methylprednisolone (Solu-Medrol) 40 mg IV Q8 [facility] Last Admin: 09/09/19 05:37 Dose: 40 mg Documented by: Ondansetron HCl (Zofran) 4 mg IV Q8H PRN PRN PRN Reason: NAUSEA/VOMITING Sodium Chloride () 10 - 40 ml IV UD PRN PRN Reason: SALINE FLUSH Last Admin: 09/09/19 04:11 Dose: 10 ml Documented by: Assessment/Plan Active and Suspected Problems Acute respiratory failure with hypoxia (Acute) Pneumonia (Acute) Sepsis (Acute) RECOMMENDATIONS: 1. Continue broad-spectrum antimicrobials, bronchodilators and IV steroids. 2. Continue patient on assist control mode of mechanical ventilation. Decrease respiratory rate to 14 breaths/min and increased flow rates to 80. 3. Obtain repeat arterial blood gas in several hours. 4. Continue fentanyl and propofol for sedation. 5. Start tube feeds today. 6. Continue appropriate ICU prophylaxis 7. Wean FiO2 and PEEP to maintain oxygen saturations at or above 90%. IMPRESSIONS: 1. Acute combined respiratory failure The patient presented to the hospital in respiratory distress with radiographic evidence of community-acquired pneumonia. Patient subsequently decompensated, despite the use of noninvasive positive pressure ventilatory support and did require intubation. Due to the patient's current ventilatory parameters, I do suspect that she may be an air trapping. Therefore, I have increased her ventilator flow rates and decreased her respiratory rate to increase her ID to E ratio. Recommend obtaining repeat arterial blood gas in 2 hours. The patient will remain on broad-spectrum antimicrobials, scheduled bronchodilators and IV steroids. Tube feeds can be initiated from my perspective. 2. Severe sepsis secondary to community-acquired pneumonia Continue current supportive measures as noted above. Supplemental IV fluids can be discontinued, as the patient remains hemodynamically stable and there are plans to initiate tube feeds today. 3. Obstructive sleep apnea The patient has an apparent history of obstructive sleep apnea of unknown severity, for which she is reportedly noncompliant with the use of nocturnal Pap therapy. Recommend that upon successful extubation that she then be transitioned to BiPAP nightly while she remains admitted to the hospital. 4. Longstanding tobacco dependency/depression/obesity Complicates care, management, recovery and prognosis. Nicotine replacement therapy can be utilized while the patient is admitted to the hospital. Smoking cessation is strongly advised. UPDATE: The patient has been increasingly difficult to ventilate this morning, despite being on a significant amount of sedation. She remains extremely tight from a respiratory perspective with bilateral wheezing and is frequently double triggering the vent. Therefore, we will plan to initiate cis atracurium today. TIME: 40 minutes of critical care time, independent of procedures, was spent addressing the patient's acute combined respiratory failure, severe sepsis secondary to community-acquired pneumonia, obstructive sleep apnea, longstanding tobacco dependency, review of all data and collaboration with the care team. ([id number]) Code Visit [id number]: [id number] Critical care first hour
[2019-09-09 06:52] LABS: M R Staph aureus DNA By PCR Negative (Negative); Probe Check PASS; Specimen Processing Control PASS
--- NOTE | 2019-09-09 06:59 | VDLE_ITS ---
Reason For Study: ELEVATED D-DIMER RIGHT LEFT GSV is normal. GSV is normal. FV is compressible, spontaneous, phasic, CFV is compressible, spontaneous, phasic, competent and demonstrates normal competent, and demonstrates normal augmentation. augmentation. POP V is compressible, spontaneous, phasic, FV is compressible, spontaneous, phasic, competent and demonstrates normal competent and demonstrates normal augmentation. augmentation. T/P Trunk is compressible. POP V is compressible, spontaneous, phasic, PTV is compressible. competent and demonstrates normal RT PerV is compressible. augmentation. RT CFV not visualized due to placement of T/P Trunk is compressible. catheter line. PTV is compressible. Procedure LT PerV is compressible. Exam performed portable in ICU/CCU. A preliminary report was called and/or faxed to ICU. Interpretation Summary No evidence for acute deep venous thrombosis bilateral lower extremities with patent and compressible bilateral great saphenous veins. Limitation of right common femoral vein not visualized secondary to indwelling line Ordering Physician: Maxi Torres Referring Physician: CASSANDRA DUBON Performed By: Di Galindo, RDCS, RVT
[2019-09-09] MEDS: fentaNYL drip 100 ML 10 MCG IV (07:44)
--- NOTE | 2019-09-09 07:56 | PCM.NTREPORT ---
Nutrition Therapy Report - History Nutrition Services has been consulted to:: Manage enteral nutrition Current diet / nutrition support order:: NPO - Anthropometric Measurements Height:: 5 ft 4 in Weight:: 119.1 kg Body Mass Index (BMI):: 45.1 - Relevant Labs Relevant Labs:: WBC 23.3 K/mm3 (4.4-11.0) H 09/09/19 04:15 Hgb 15.3 g/dL (12.0-15.0) H 09/08/19 16:00 MCHC 31.8 g/dL (32-36) L 09/09/19 04:15 RDW Std Deviation 47.1 fl (35.1-43.9) H 09/09/19 04:15 Neut % (Auto) 92.0 % (47-70) H 09/09/19 04:15 Lymph % (Auto) 2.0 % (19-41) L 09/09/19 04:15 Absolute Neuts (auto) 21.5 X10^3/uL (2.0-7.7) H 09/09/19 04:15 Absolute Lymphs (auto) 0.47 X10^3/uL (0.83-4.51) L 09/09/19 04:15 D-Dimer Quant (PE/DVT) 1.27 FEU/ug/m (0.27-0.49) H* 09/08/19 16:25 Creatinine 1.29 mg/dL (0.55-1.02) H 09/09/19 04:15 Est GFR (MDRD) Af Amer 57 mL/min (>60) L 09/09/19 04:15 Est GFR (MDRD) Non-Af 47 mL/min (>60) L 09/09/19 04:15 Glucose 192 mg/dL (74-106) H 09/09/19 04:15 Calcium 8.0 mg/dL (8.5-10.1) L 09/09/19 04:15 Total Creatine Kinase 618 U/L (26-192) H 09/09/19 04:15 - Assessment Food / Nutrition-Related History:: Unable to talk to pt at this time d/t sedated and on vent. OG in place. 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 [ End ] - Nutrition Diagnosis Problem / Etiology / Signs & Symptoms (PES):: Inadequate oral intake r/t sedated, intubated and on vent. Evidence of Malnutrition Exists:: No - Nutrition Intervention Nutrition Prescription:: 1309 - 1666 kevan / 100-110 gm pro / day - Food / Nutrient Delivery Interventions Summary of nutrition intervention:: Rec enteral nutrition support until pt extubated and able to resume po diet. Nutrition support ordered as / adjusted to:: Will change diet to NPO d/t intubated and on vent. If NPO duration to continue, rec Vital AF 1.2 at goal rate 60 cc/hr with 100 cc H2O flush every 4 hours to provide ~ 1728 kevan / 1008 gm pro / 1767 cc free water per day. Would start tf at 20 cc/hr and increase by 20 cc/hr every 6-8 hrs as tolerated until goal rate achieved. When medically able, rec LEILANI to 1800 kevan Cardiac d/t pmhx and morbid obesity. [ End ] Nutrition education provided?: No - MNT Monitoring Further MNT monitoring and evaluation required?: Yes - Will monitor TF once initiated and adjust as indicated MNT Follow-up in:: 3-5 days
[2019-09-09 08:10] LABS: Base Excess -1 mmol/L (-2 to +2); Bicarbonate 25.6 mmol/L (22-26); Blood Gas Specimen Type ART; FI02 70; Mode A-C; O2 Delivery Device Vent; PEEP 8; PO2 69 mmHG (75-100); RR 16; SITE R Radial; SO2 90 % (95-99); Time Given 802; Total Carbon Dioxide 27 mmol/L; Vt 500; pCO2 55.3 mmHg (35-45); pH 7.27 (7.35-7.45)
--- NOTE | 2019-09-09 08:30 | PN_ITS ---
Patient Problems: Active and Suspected Problems Acute respiratory failure with hypoxia (Acute) Pneumonia (Acute) Sepsis (Acute) Reason for Visit: Acute hypoxic respiratory failure secondary to pneumonia Objective: The patient was admitted in ICU with shortness of breath, fever temperature 101.8, cough, tachypnea and hypoxia 75% on room air. Patient initially was put on BiPAP but when respiratory status deteriorated last night, he was emergently intubated on ventilator. Patient is on 70% FiO2/500/14/8. Vitals/I&O's: Vital Signs Temp Pulse Resp BP Pulse Ox 98.4 F 82 14 97/58 L 94 09/09/19 08:00 09/09/19 08:10 09/09/19 08:10 09/09/19 08:00 09/09/19 08:10 Oxygen Flow Rate (L/min) 6 Oxygen Delivery Method Mechanical Ventilator Weight: 262 lb 9.129 oz Body Mass Index (BMI) 45.1 Intake and Output for Last 24 Hours 09/07/19 09/08/19 09/09/19 23:59 23:59 23:59 Intake Total 1727.08 / 1727.08 555.69 / 555.69 Output Total 300 / 300 65 / 65 Balance 1427.08 / 1427.08 490.69 / 490.69 General: - - Sedated and intubated HEENT: - - pupil sluggish react. On sedatives Oral: No Gingival or Mucosal Lesions/ Ulcerations, - - ET and OG tube Neck: Supple, No JVD, Negative Carotid Bruits Lungs: - - On vent. Air entry bilateral equal Cardiovascular: Regular rate, Regular Rhythm, Normal S1, Normal S2, No murmurs, - - Low blood pressure Abdomen: Bowel Sounds Present, Soft, Non Tender, Non-Distended Extremities: No edema, Capillary Refill Less than 3 Seconds Skin: No rashes, No breakdown Musculoskeletal: Arthritic Changes Neurological: Cranial nerves II-XII grossly intact, - - On sedatives Microbiology Past 72 Hours 09/08/19 16:05 Mucosa - Nasopharyngeal Respiratory Panel (PCR) - Final 09/08/19 21:57 Urine, Random Legionella Antigen - Final 09/08/19 21:57 Urine, Random Streptococcus pneumoniae Antigen (M - Final 09/08/19 16:05 Mucosa - Nasopharyngeal Influenza Types A,B Direct FA (BRANDON) - Final Laboratory Results 09/08/19 16:00: WBC 16.3 H, RBC 5.15, Hgb 15.3 H, Hct 46.7, MCV 90.7, MCH 29.7, MCHC 32.8, RDW Std Deviation 45.0 H, RDW Coeff of Km 13.6, Plt Count 270, MPV 11.0, Immature Gran % (Auto) 0.700, Neut % (Auto) 85.6 H, Lymph % (Auto) 4.7 L, Harmon % (Auto) 8.5, Eos % (Auto) 0.1, Baso % (Auto) 0.4, Absolute Neuts (auto) 14.0 H, Absolute Lymphs (auto) 0.77 L, Nucleated RBC % 0 09/08/19 16:00: D-Dimer Quant (PE/DVT) Cancelled 09/08/19 16:00: Sodium 137, Potassium 4.4, Chloride 106, Carbon Dioxide 26.0, Anion Gap 5, BUN 11, Creatinine 0.92, Estim Creat Clear Calc 65.98, Est GFR (MDRD) Af Amer 84, Est GFR (MDRD) Non-Af 70, BUN/Creatinine Ratio 11.9, Glucose 122 H, Calcium 9.2, Troponin I < 0.015 09/08/19 16:00: Lactic Acid 1.3 09/08/19 16:25: D-Dimer Quant (PE/DVT) 1.27 H* 09/08/19 16:40: Specimen Type ART, Sample Site L Radial, pH 7.36, Bicarbonate Actual 24.2, POC Total CO2 26, Base Excess -1, O2 Saturation 96, O2 % 100, ABG pCO2 43.3, ABG pO2 89, Ady Test POS, Respiration Rate 12, O2 Delivery Device Bi / C PAP, EPAP 8, IPAP 16, Blood Gas Notified Whom ED , Blood Gas Notified Time 1635 09/09/19 02:30: MRSA (PCR) Negative 09/09/19 03:17: Specimen Type ART, Sample Site L Radial, pH 7.25 L, Bicarbonate Actual 24.9, POC Total CO2 27, Base Excess -2, O2 Saturation 93 L, O2 % 80, ABG pCO2 57.3 H, ABG pO2 80, Ady Test POS, Respiration Rate 14, O2 Delivery Device Vent, Vent Mode A-C, Tidal Volume 500, POC PEEP 5, Blood Gas Notified Whom HOSP , Blood Gas Notified Time 315 09/09/19 04:15: Sodium 137, Potassium 4.2, Chloride 105, Carbon Dioxide 25.0, Anion Gap 7, BUN 15, Creatinine 1.29 H, Estim Creat Clear Calc 47.06, Est GFR (MDRD) Af Amer 57 L, Est GFR (MDRD) Non-Af 47 L, BUN/Creatinine Ratio 11.6, Glucose 192 H, Calcium 8.0 L, Total Creatine Kinase 618 H, Triglycerides 80 09/09/19 04:15: WBC 23.3 H, RBC 4.64, Hgb 13.5, Hct 42.5, MCV 91.6, MCH 29.1, MCHC 31.8 L, RDW Std Deviation 47.1 H, RDW Coeff of Km 14.1, Plt Count 235, MPV 11.3, Immature Gran % (Auto) 0.600, Neut % (Auto) 92.0 H, Lymph % (Auto) 2.0 L, Harmon % (Auto) 4.7, Eos % (Auto) 0.5, Baso % (Auto) 0.2, Absolute Neuts (auto) 21.5 H, Absolute Lymphs (auto) 0.47 L, Nucleated RBC % 0, Differential Comment SCANNED 09/09/19 08:04: Specimen Type ART, Sample Site R Radial, pH 7.27 L, Bicarbonate Actual 25.6, POC Total CO2 27, Base Excess -1, O2 Saturation 90 L, O2 % 70, ABG pCO2 55.3 H, ABG pO2 69 L, Respiration Rate 16, O2 Delivery Device Vent, Vent Mode A-C, Tidal Volume 500, POC PEEP 8, Blood Gas Notified Whom ICU MD, Blood Gas Notified Time 802 Current Medications Acetaminophen (Tylenol) 650 mg PO Q6H PRN PRN PRN Reason: Pain Score 1-10/Temp > 100.7 F Albuterol/Ipratropium (Duoneb) 3 ml INHALATION Q4HWA.RT [facility] Last Admin: 09/09/19 06:50 Dose: 3 ml Documented by: Bupropion HCl (Wellbutrin Sr (100mg Tablets)) 100 mg PO BID [facility] Last Admin: 09/08/19 22:15 Dose: Not Given Documented by: Chlorhexidine Gluconate () 1 each TOPICAL DAILY [facility] Last Admin: 09/09/19 04:58 Dose: 1 each Documented by: Chlorhexidine Gluconate () 15 ml PO BID [facility] Dextrose (D50w Syringe) 0 gm IV X1 PRN; Protocol PRN Reason: Hypoglycemia Enoxaparin Sodium (Lovenox) 40 mg SC DAILY [facility] Famotidine (Pepcid) 20 mg PO BID [facility] Glucagon () 1 mg IM .X1 PRN PRN Reason: Hypoglycemia Fentanyl () 100 mls @ 2.5 mls/hr IV UD EZE; Protocol Last Titration: 09/09/19 08:00 Dose: 100 mcg/hr, 10 mls/hr Documented by: Propofol (Diprivan) 1,000 mg in 100 mls @ 7.177 mls/hr CONT INF .Q12H EZE; Protocol Last Titration: 09/09/19 08:00 Dose: 25 mcg/kg/min, 17.9 mls/hr Documented by: Piperacillin Sod/Tazobactam (Sod 3.375 gm/ Sodium Chloride) 50 mls @ 12.5 mls/ hr IV Q8 [facility] Sodium Chloride () 250 mls @ 15 mls/hr IV .[id number] PRN PRN Reason: Saline Flush Last Infusion: 09/09/19 04:05 Dose: 15 mls/hr Documented by: Labetalol HCl (Trandate) 10 mg IV Q4H PRN PRN PRN Reason: SBP GREATER THAN 180 Methylprednisolone (Solu-Medrol) 40 mg IV Q8 [facility] Last Admin: 09/09/19 05:37 Dose: 40 mg Documented by: Ondansetron HCl (Zofran) 4 mg IV Q8H PRN PRN PRN Reason: NAUSEA/VOMITING Sodium Chloride () 10 - 40 ml IV UD PRN PRN Reason: SALINE FLUSH Last Admin: 09/09/19 04:11 Dose: 10 ml Documented by: STROKE Vital Signs/Narrative: Vital Signs Temp Pulse Resp BP Pulse Ox 09/09/19 08:10 82 14 94 09/09/19 08:00 98.4 F 81 16 97/58 L 93 09/09/19 07:00 98.5 F 81 16 92/52 L 94 09/09/19 06:51 80 16 09/09/19 06:00 98.6 F 82 16 91/48 L 94 09/09/19 05:00 99.0 F 86 15 100/48 L 94 Medical Necessity - Tobacco Use Smoking Status: Current every day smoker Tobacco Use: Cigarettes Assessment/Plan All Active Problems Acute respiratory failure with hypoxia (Acute) Pneumonia (Acute) Sepsis (Acute) 44-year-old female admitted with shortness of breath and fever. In the ER she was found to 75% on room air. O she was put on BiPAP and then she was intubated last night. 1. Sepsis (fever, T-max 101.8, tachypnea, pulse greater than 90, leukocytosis right lower lobe infiltrate on chest x-ray ) secondary to right lower lobe pneu monia, [id number]: Currently intubated in ICU, 70% FiO2, 500/14/8. Urinary antigens are negative. Respiratory panel negative. Blood cultures are pending Lactic acid is negative. Troponin is negative. 2. Questionable underlying COPD- on aerosols and Solu-Medrol. She needs outpatient pulmonary follow-up with PFTs. 3. Obstructive obstructive sleep apnea-noncompliant with CPAP at home. Continue BiPAP while here. 4. Hypertensive urgency-BP up to 200/89 in the emergency room. Most recent blood pressure 101/50. Currently is on sedatives for intubation. 5. Morbid obesity-calorie controlled diet and dietitian evaluation. 6. Nicotine abuse-patch if desired. Smokes 3/4 packs/day since age 11. 7. Depression-Wellbutrin DVT prophylaxis: Lovenox Code Visit Inpatient E&M: [id number] [facility] Hosp L3
[2019-09-09 10:01] LABS: Base Excess 1 mmol/L (-2 to +2); Bicarbonate 27.4 mmol/L (22-26); Blood Gas Specimen Type ART; FI02 70; Mode A-C; O2 Delivery Device Vent; PEEP 8; PO2 88 mmHG (75-100); RR 14; SITE R Radial; SO2 95 % (95-99); Time Given 956; Total Carbon Dioxide 29 mmol/L; Vt 500; pCO2 59.6 mmHg (35-45); pH 7.27 (7.35-7.45)
[2019-09-09] MEDS: Propofol 10MG/Ml 1,000 MG/100 ML Bottle 25.1 MG CONT INF ×3 (10:38→22:59)
[2019-09-09] MEDS: Enoxaparin 40 MG/0.4 ML Syringe SC (12:13)
[2019-09-09] MEDS: Famotidine 20 MG Tablet GT ×2 (12:13→21:21)
[2019-09-09] MEDS: Chlorhexidine 15 ML PO ×2 (12:14→21:20)
[2019-09-09] MEDS: buPROPion 100 MG Tablet GT ×2 (12:14→21:21)
--- NOTE | 2019-09-09 13:08 | CASEMGMT ---
RN CM Assessment Note Presentation: Pneumonia, Sepsis Intro role of CM and purpose of RN CM assessment to patient's . Pt is on ventilator, unable to participate in assessment. Demographics, PCP and Pharmacy verified with . states pt was very independent prior to admission. No DME use, worked and had no care needs. very concerned. RN CM spent time allowing him to voice concerns, retell how pt condition worsened quickly on day of admission. Emotional support given. -PCP: Dr. Sandy Lucio Specialists: none prior to admission per Preferred Pharmacy: [facility] [place] Insurance: [employer] Prescription Benefit: yes LNOK: Nicolas Nagel Living Arrangements: Lives independently with her . states pt did not have care needs, was independent, worked. Transportation: Pt drives, but can assist DME: pt has cpap, does not wear. No other DME. HHC/SNF: none Patient DC goals: 's plan presently is for pt to return home. DC PLAN: undetermined. Pt remains critical, on ventilator. RN CM discussed with that CM will continue to follow course through hospital stay and address any dc needs which may include HHC and/or Home oxygen. Jennifer VENEGAS RN ACM>
--- NOTE | 2019-09-09 13:19 | PN_ITS ---
<Karthik Harry - Last Filed: 09/09/19 13:19> Patient Problems: Active and Suspected Problems Acute respiratory failure with hypoxia (Acute) Pneumonia (Acute) Sepsis (Acute) Reason for Visit: Respiratory distress. Subjective: Pt intubated overnight, worsening breathing despite bipap with worsening acidosis on ABG with CO2 retention. Feeding tube ordered per stove polisher. Vitals/I&O's: Vital Signs Temp Pulse Resp BP Pulse Ox 98.5 F 83 14 96/59 L 97 09/09/19 09:00 09/09/19 13:06 09/09/19 13:06 09/09/19 09:32 09/09/19 13:06 Oxygen Flow Rate (L/min) 6 Oxygen Delivery Method Mechanical Ventilator Weight: 262 lb 9.129 oz Body Mass Index (BMI) 45.1 Intake and Output for Last 24 Hours 09/07/19 09/08/19 09/09/19 23:59 23:59 23:59 Intake Total 1727.08 / 1727.08 821.62 / 821.62 Output Total 300 / 300 165 / 165 Balance 1427.08 / 1427.08 656.62 / 656.62 General: - - sedated. HEENT: Atraumatic, PERRLA, EOMI, Normocephalic Neck: Supple, No JVD, Negative Carotid Bruits Lungs: Diminished, Rales, - - mechanical ventilation Cardiovascular: Regular rate, No murmurs Abdomen: Bowel Sounds Present, Soft, Non Tender, Obese Extremities: No edema, Capillary Refill Less than 3 Seconds Skin: No rashes, No breakdown Musculoskeletal: No Tenderness to Palpation of Joints or Extremities Neurological: Cranial nerves II-XII grossly intact Psych/Mental Status: Restless Microbiology Past 72 Hours 09/08/19 16:05 Mucosa - Nasopharyngeal Respiratory Panel (PCR) - Final 09/08/19 21:57 Urine, Random Legionella Antigen - Final 09/08/19 21:57 Urine, Random Streptococcus pneumoniae Antigen (M - Final 09/08/19 16:05 Mucosa - Nasopharyngeal Influenza Types A,B Direct FA (BRANDON) - Final Laboratory Results 09/08/19 16:00: WBC 16.3 H, RBC 5.15, Hgb 15.3 H, Hct 46.7, MCV 90.7, MCH 29.7, MCHC 32.8, RDW Std Deviation 45.0 H, RDW Coeff of Km 13.6, Plt Count 270, MPV 11.0, Immature Gran % (Auto) 0.700, Neut % (Auto) 85.6 H, Lymph % (Auto) 4.7 L, Ware % (Auto) 8.5, Eos % (Auto) 0.1, Baso % (Auto) 0.4, Absolute Neuts (auto) 14.0 H, Absolute Lymphs (auto) 0.77 L, Nucleated RBC % 0 09/08/19 16:00: D-Dimer Quant (PE/DVT) Cancelled 09/08/19 16:00: Sodium 137, Potassium 4.4, Chloride 106, Carbon Dioxide 26.0, Anion Gap 5, BUN 11, Creatinine 0.92, Estim Creat Clear Calc 65.98, Est GFR (MDRD) Af Amer 84, Est GFR (MDRD) Non-Af 70, BUN/Creatinine Ratio 11.9, Glucose 122 H, Calcium 9.2, Troponin I < 0.015 09/08/19 16:00: Lactic Acid 1.3 09/08/19 16:25: D-Dimer Quant (PE/DVT) 1.27 H* 09/08/19 16:40: Specimen Type ART, Sample Site L Radial, pH 7.36, Bicarbonate Actual 24.2, POC Total CO2 26, Base Excess -1, O2 Saturation 96, O2 % 100, ABG pCO2 43.3, ABG pO2 89, Ady Test POS, Respiration Rate 12, O2 Delivery Device Bi / C PAP, EPAP 8, IPAP 16, Blood Gas Notified Whom ED , Blood Gas Notified Time 1635 09/09/19 02:30: MRSA (PCR) Negative 09/09/19 03:17: Specimen Type ART, Sample Site L Radial, pH 7.25 L, Bicarbonate Actual 24.9, POC Total CO2 27, Base Excess -2, O2 Saturation 93 L, O2 % 80, ABG pCO2 57.3 H, ABG pO2 80, Ady Test POS, Respiration Rate 14, O2 Delivery Device Vent, Vent Mode A-C, Tidal Volume 500, POC PEEP 5, Blood Gas Notified Whom HOSP , Blood Gas Notified Time 315 09/09/19 04:15: Sodium 137, Potassium 4.2, Chloride 105, Carbon Dioxide 25.0, Anion Gap 7, BUN 15, Creatinine 1.29 H, Estim Creat Clear Calc 47.06, Est GFR (MDRD) Af Amer 57 L, Est GFR (MDRD) Non-Af 47 L, BUN/Creatinine Ratio 11.6, Glucose 192 H, Calcium 8.0 L, Total Creatine Kinase 618 H, Triglycerides 80 09/09/19 04:15: WBC 23.3 H, RBC 4.64, Hgb 13.5, Hct 42.5, MCV 91.6, MCH 29.1, MCHC 31.8 L, RDW Std Deviation 47.1 H, RDW Coeff of Km 14.1, Plt Count 235, MPV 11.3, Immature Gran % (Auto) 0.600, Neut % (Auto) 92.0 H, Lymph % (Auto) 2.0 L, Ware % (Auto) 4.7, Eos % (Auto) 0.5, Baso % (Auto) 0.2, Absolute Neuts (auto) 21.5 H, Absolute Lymphs (auto) 0.47 L, Nucleated RBC % 0, Differential Comment SCANNED 09/09/19 08:04: Specimen Type ART, Sample Site R Radial, pH 7.27 L, Bicarbonate Actual 25.6, POC Total CO2 27, Base Excess -1, O2 Saturation 90 L, O2 % 70, ABG pCO2 55.3 H, ABG pO2 69 L, Respiration Rate 16, O2 Delivery Device Vent, Vent Mode A-C, Tidal Volume 500, POC PEEP 8, Blood Gas Notified Whom ICU MD, Blood Gas Notified Time 802 09/09/19 09:58: Specimen Type ART, Sample Site R Radial, pH 7.27 L, Bicarbonate Actual 27.4 H, POC Total CO2 29, Base Excess 1, O2 Saturation 95, O2 % 70, ABG pCO2 59.6 H, ABG pO2 88, Respiration Rate 14, O2 Delivery Device Vent, Vent Mode A-C, Tidal Volume 500, POC PEEP 8, Blood Gas Notified Whom ICU MD, Blood Gas Notified Time 956 Current Medications Acetaminophen (Tylenol Liquid) 650 mg GT Q6H PRN PRN PRN Reason: Pain Score 1-10/Temp > 100.7 F Albuterol Sulfate (Ventolin Aerosols) 2.5 mg INHALATION Q2H PRN PRN PRN Reason: SOB/WHEEZING Albuterol/Ipratropium (Duoneb) 3 ml INHALATION Q4H.RT [facility] Last Admin: 09/09/19 10:45 Dose: 3 ml Documented by: Bupropion HCl (Wellbutrin Tablets) 100 mg GT BID [facility] Last Admin: 09/09/19 12:14 Dose: 100 mg Documented by: Chlorhexidine Gluconate () 1 each TOPICAL DAILY [facility] Last Admin: 09/09/19 04:58 Dose: 1 each Documented by: Chlorhexidine Gluconate () 15 ml PO BID [facility] Last Admin: 09/09/19 12:14 Dose: 15 ml Documented by: Dextrose (D50w Syringe) 0 gm IV X1 PRN; Protocol PRN Reason: Hypoglycemia Enoxaparin Sodium (Lovenox) 40 mg SC DAILY [facility] Last Admin: 09/09/19 12:13 Dose: 40 mg Documented by: Famotidine (Pepcid) 20 mg GT BID [facility] Last Admin: 09/09/19 12:13 Dose: 20 mg Documented by: Glucagon () 1 mg IM .X1 PRN PRN Reason: Hypoglycemia Fentanyl () 100 mls @ 15 mls/hr IV UD [facility]; Protocol Last Titration: 09/09/19 12:00 Dose: 150 mcg/hr, 15 mls/hr Documented by: Propofol (Diprivan) 1,000 mg in 100 mls @ 7.177 mls/hr CONT INF .Q12H [facility]; Protocol Last Titration: 09/09/19 13:10 Dose: 35 mcg/kg/min, 25.1 mls/hr Documented by: Piperacillin Sod/Tazobactam (Sod 3.375 gm/ Sodium Chloride) 50 mls @ 12.5 mls/hr IV Q8 [facility] Sodium Chloride () 250 mls @ 15 mls/hr IV .[id number] PRN PRN Reason: Saline Flush Last Infusion: 09/09/19 04:05 Dose: 15 mls/hr Documented by: Enteral Nutritional Formula (Vital Af 1.2 Alexx Liquid) 1,000 mls @ 60 mls/hr GT .[id number] [facility] Cisatracurium Besylate 100 mg/ (Sodium Chloride) 250 mls @ 35.73 mls/hr IV .Q7H [facility]; Protocol Last Titration: 09/09/19 13:10 Dose: 2 mcg/kg/min, 35.7 mls/hr Documented by: Labetalol HCl (Trandate) 10 mg IV Q4H PRN PRN PRN Reason: SBP GREATER THAN 180 Methylprednisolone (Solu-Medrol) 40 mg IV Q8 [facility] Last Admin: 09/09/19 05:37 Dose: 40 mg Documented by: Ondansetron HCl (Zofran) 4 mg IV Q8H PRN PRN PRN Reason: NAUSEA/VOMITING Sodium Chloride () 10 - 40 ml IV UD PRN PRN Reason: SALINE FLUSH Last Admin: 09/09/19 04:11 Dose: 10 ml Documented by: STROKE Vital Signs/Narrative: Vital Signs Pulse Resp BP Pulse Ox 09/09/19 13:06 83 14 97 09/09/19 10:46 89 18 09/09/19 10:43 83 21 H 95 09/09/19 09:45 86 24 H 09/09/19 09:32 96/59 L Medical Necessity - Tobacco Use Smoking Status: Current every day smoker Tobacco Use: Cigarettes Assessment/Plan All Active Problems Acute respiratory failure with hypoxia (Acute) Pneumonia (Acute) Sepsis (Acute) 1. Acute mixed respiratory failure 2/2 Right lower lobe pneumonia, community- pt now intubated / ventilated in the ICU. Pulm following. Continue zosyn. MRSA negative. Urine antigens and resp panel negative. Last fever midnight 101.1. ABG with worsening pH and increased CO2. On nimbex, fentanyl, propofol. May need pressor support, currently maintaining, but borderline low. Tube feedings per risk specialist (Vital AF 60cc/hr c 100cc water flush q4hr) -CTA limited but shows no large PE, groundglass changes, pectus excavatum. -Duplex venous US recommended as CTA limited. pending. 2. Probably COPD-patient says she may have this however was never formally tested, does not use aerosols at home. Continue aerosols/solumedrol She needs outpatient pulmonary follow-up with PFTs [place] [facility]. 3. Obstructive obstructive sleep apnea-noncompliant with CPAP at home. 4. Hypertensive urgency- resolved. bp borderline low. 5. Morbid obesity-dietitian evaluation when appropriate. Pt needs weight loss. Suspect OHS. 6. Nicotine abuse-Smokes 3/4 packs/day since age 11. 7. Depression-Wellbutrin DVT prophylaxis: Lovenox GI ppx: Pepcid. This patient was seen by Karthik Harry PA-C under the supervision of Doctor Isreal. <Gabe Bach - Last Filed: 09/09/19 15:15> Vitals/I&O's: Vital Signs Temp Pulse Resp BP Pulse Ox 97.5 F L 76 16 134/82 H 100 09/09/19 14:00 09/09/19 14:55 09/09/19 14:55 09/09/19 14:45 09/09/19 14:52 Oxygen Flow Rate (L/min) 6 Oxygen Delivery Method Mechanical Ventilator Weight: 262 lb 9.129 oz Body Mass Index (BMI) 45.1 Intake and Output for Last 24 Hours 09/07/19 09/08/19 09/09/19 23:59 23:59 23:59 Intake Total 1727.08 / 1727.08 1148.73 / 1148.73 Output Total 300 / 300 165 / 165 Balance 1427.08 / 1427.08 983.73 / 983.73 Microbiology Past 72 Hours 09/08/19 16:05 Mucosa - Nasopharyngeal Respiratory Panel (PCR) - Final 09/08/19 21:57 Urine, Random Legionella Antigen - Final 09/08/19 21:57 Urine, Random Streptococcus pneumoniae Antigen (M - Final 09/08/19 16:05 Mucosa - Nasopharyngeal Influenza Types A,B Direct FA (BRANDON) - Final Laboratory Results 09/08/19 16:00: WBC 16.3 H, RBC 5.15, Hgb 15.3 H, Hct 46.7, MCV 90.7, MCH 29.7, MCHC 32.8, RDW Std Deviation 45.0 H, RDW Coeff of Km 13.6, Plt Count 270, MPV 11.0, Immature Gran % (Auto) 0.700, Neut % (Auto) 85.6 H, Lymph % (Auto) 4.7 L, Ware % (Auto) 8.5, Eos % (Auto) 0.1, Baso % (Auto) 0.4, Absolute Neuts (auto) 14.0 H, Absolute Lymphs (auto) 0.77 L, Nucleated RBC % 0 09/08/19 16:00: D-Dimer Quant (PE/DVT) Cancelled 09/08/19 16:00: Sodium 137, Potassium 4.4, Chloride 106, Carbon Dioxide 26.0, Anion Gap 5, BUN 11, Creatinine 0.92, Estim Creat Clear Calc 65.98, Est GFR (MDRD) Af Amer 84, Est GFR (MDRD) Non-Af 70, BUN/Creatinine Ratio 11.9, Glucose 122 H, Calcium 9.2, Troponin I < 0.015 09/08/19 16:00: Lactic Acid 1.3 09/08/19 16:25: D-Dimer Quant (PE/DVT) 1.27 H* 09/08/19 16:40: Specimen Type ART, Sample Site L Radial, pH 7.36, Bicarbonate Actual 24.2, POC Total CO2 26, Base Excess -1, O2 Saturation 96, O2 % 100, ABG pCO2 43.3, ABG pO2 89, Ady Test POS, Respiration Rate 12, O2 Delivery Device Bi / C PAP, EPAP 8, IPAP 16, Blood Gas Notified Whom ED , Blood Gas Notified Time 1635 09/09/19 02:30: MRSA (PCR) Negative 09/09/19 03:17: Specimen Type ART, Sample Site L Radial, pH 7.25 L, Bicarbonate Actual 24.9, POC Total CO2 27, Base Excess -2, O2 Saturation 93 L, O2 % 80, ABG pCO2 57.3 H, ABG pO2 80, Ady Test POS, Respiration Rate 14, O2 Delivery Device Vent, Vent Mode A-C, Tidal Volume 500, POC PEEP 5, Blood Gas Notified Whom [facility] , Blood Gas Notified Time 315 09/09/19 04:15: Sodium 137, Potassium 4.2, Chloride 105, Carbon Dioxide 25.0, Anion Gap 7, BUN 15, Creatinine 1.29 H, Estim Creat Clear Calc 47.06, Est GFR (MDRD) Af Amer 57 L, Est GFR (MDRD) Non-Af 47 L, BUN/Creatinine Ratio 11.6, Glucose 192 H, Calcium 8.0 L, Total Creatine Kinase 618 H, Triglycerides 80 09/09/19 04:15: WBC 23.3 H, RBC 4.64, Hgb 13.5, Hct 42.5, MCV 91.6, MCH 29.1, MCHC 31.8 L, RDW Std Deviation 47.1 H, RDW Coeff of Km 14.1, Plt Count 235, MPV 11.3, Immature Gran % (Auto) 0.600, Neut % (Auto) 92.0 H, Lymph % (Auto) 2.0 L, Ware % (Auto) 4.7, Eos % (Auto) 0.5, Baso % (Auto) 0.2, Absolute Neuts (auto) 21.5 H, Absolute Lymphs (auto) 0.47 L, Nucleated RBC % 0, Differential Comment SCANNED 09/09/19 08:04: Specimen Type ART, Sample Site R Radial, pH 7.27 L, Bicarbonate Actual 25.6, POC Total CO2 27, Base Excess -1, O2 Saturation 90 L, O2 % 70, ABG pCO2 55.3 H, ABG pO2 69 L, Respiration Rate 16, O2 Delivery Device Vent, Vent Mode A-C, Tidal Volume 500, POC PEEP 8, Blood Gas Notified Whom ICU MD, Blood Gas Notified Time 802 09/09/19 09:58: Specimen Type ART, Sample Site R Radial, pH 7.27 L, Bicarbonate Actual 27.4 H, POC Total CO2 29, Base Excess 1, O2 Saturation 95, O2 % 70, ABG pCO2 59.6 H, ABG pO2 88, Respiration Rate 14, O2 Delivery Device Vent, Vent Mode A-C, Tidal Volume 500, POC PEEP 8, Blood Gas Notified Whom ICU MD, Blood Gas Notified Time 956 09/09/19 13:13: Specimen Type ART, Sample Site R Radial, pH 7.20 L, Bicarbonate Actual 26.6 H, POC Total CO2 29, Base Excess -1, O2 Saturation 95, O2 % 70, ABG pCO2 67.4 H*, ABG pO2 94, Respiration Rate 14, O2 Delivery Device Vent, Vent Mode A-C, Tidal Volume 450, POC PEEP 8, Blood Gas Notified Whom ICU MD, Blood Gas Notified Time 1311 Current Medications Acetaminophen (Tylenol Liquid) 650 mg GT Q6H PRN PRN PRN Reason: Pain Score 1-10/Temp > 100.7 F Albuterol Sulfate (Ventolin Aerosols) 2.5 mg INHALATION Q2H PRN PRN PRN Reason: SOB/WHEEZING Albuterol/Ipratropium (Duoneb) 3 ml INHALATION Q4H.RT [facility] Last Admin: 09/09/19 14:55 Dose: 3 ml Documented by: Bupropion HCl (Wellbutrin Tablets) 100 mg GT BID [facility] Last Admin: 09/09/19 12:14 Dose: 100 mg Documented by: Chlorhexidine Gluconate () 1 each TOPICAL DAILY [facility] Last Admin: 09/09/19 04:58 Dose: 1 each Documented by: Chlorhexidine Gluconate () 15 ml PO BID [facility] Last Admin: 09/09/19 12:14 Dose: 15 ml Documented by: Dextrose (D50w Syringe) 0 gm IV X1 PRN; Protocol PRN Reason: Hypoglycemia Enoxaparin Sodium (Lovenox) 40 mg SC DAILY [facility] Last Admin: 09/09/19 12:13 Dose: 40 mg Documented by: Famotidine (Pepcid) 20 mg GT BID [facility] Last Admin: 09/09/19 12:13 Dose: 20 mg Documented by: Glucagon () 1 mg IM .X1 PRN PRN Reason: Hypoglycemia Fentanyl () 100 mls @ 15 mls/hr IV UD [facility]; Protocol Last Admin: 09/09/19 14:25 Dose: 150 mcg/hr, 15 mls/hr Documented by: Propofol (Diprivan) 1,000 mg in 100 mls @ 7.177 mls/hr CONT INF .Q12H [facility]; Protocol Last Titration: 09/09/19 14:50 Dose: 45 mcg/kg/min, 32.3 mls/hr Documented by: Piperacillin Sod/Tazobactam (Sod 3.375 gm/ Sodium Chloride) 50 mls @ 12.5 mls/hr IV Q8 [facility] Last Admin: 09/09/19 13:48 Dose: 12.5 mls/hr Documented by: Sodium Chloride () 250 mls @ 15 mls/hr IV .[id number] PRN PRN Reason: Saline Flush Last Infusion: 09/09/19 11:00 Dose: 0 mls/hr Documented by: Enteral Nutritional Formula (Vital Af 1.2 Alxex Liquid) 1,000 mls @ 60 mls/hr GT .[id number] [facility] Last Admin: 09/09/19 13:48 Dose: 60 mls/hr Documented by: Cisatracurium Besylate 100 mg/ (Sodium Chloride) 250 mls @ 35.73 mls/hr IV .Q7H [facility]; Protocol Last Titration: 09/09/19 14:50 Dose: 3 mcg/kg/min, 53.6 mls/hr Documented by: Norepinephrine Bitartrate 8 mg (/ Sodium Chloride) 250 mls @ 9.375 mls/hr CONT INF .[id number] [facility]; Protocol Last Titration: 09/09/19 14:45 Dose: 5 mcg/min, 9.4 mls/hr Documented by: Labetalol HCl (Trandate) 10 mg IV Q4H PRN PRN PRN Reason: SBP GREATER THAN 180 Methylprednisolone (Solu-Medrol) 40 mg IV Q8 [facility] Last Admin: 09/09/19 13:48 Dose: 40 mg Documented by: Ondansetron HCl (Zofran) 4 mg IV Q8H PRN PRN PRN Reason: NAUSEA/VOMITING Sodium Chloride () 10 - 40 ml IV UD PRN PRN Reason: SALINE FLUSH Last Admin: 09/09/19 04:11 Dose: 10 ml Documented by: STROKE Vital Signs/Narrative: Vital Signs Temp Pulse Resp BP BP Pulse Ox 09/09/19 14:55 76 16 09/09/19 14:52 76 16 100 09/09/19 14:45 134/82 H 09/09/19 14:30 147/96 H 09/09/19 14:15 104/72 09/09/19 14:00 97.5 F L 74 16 77/56 L 99 09/09/19 13:45 77/50 L 09/09/19 13:30 79/44 L 09/09/19 13:29 89 16 97 09/09/19 13:15 92/59 L 09/09/19 13:06 83 14 97 09/09/19 13:00 97.9 F 82 14 91/64 97 09/09/19 12:00 98.2 F 90 14 101/50 L 96 Assessment/Plan This patient was seen in conjunction with Karthik LONG. I have independently interviewed and examined the patient and reviewed pertinent history, examination findings, laboratory and plan of management. I have reviewed the note and agree with the documented findings with the few additional points. Please see progress note of today I have discussed my assessment with Karthik LONG and orders have been reviewed. Code Visit Inpatient E&M: 27392 Subs Hosp L3
[2019-09-09 13:20] LABS: Base Excess -1 mmol/L (-2 to +2); Bicarbonate 26.6 mmol/L (22-26); Blood Gas Specimen Type ART; FI02 70; Mode A-C; O2 Delivery Device Vent; PEEP 8; PO2 94 mmHG (75-100); RR 14; SITE R Radial; SO2 95 % (95-99); Time Given 1311; Total Carbon Dioxide 29 mmol/L; Vt 450; pCO2 67.4 mmHg (35-45)
[2019-09-09] MEDS: Vital AF 1.2 Cal Liquid 1,000 ML 60 ML GT (13:48)
--- NOTE | 2019-09-09 13:54 | CPS ---
Critical ABG results given to Dr. Torres.
[2019-09-09] MEDS: fentaNYL drip 100 ML 15 MCG IV ×2 (14:25→21:05)
--- NOTE | 2019-09-09 14:54 | CHAPLAIN ---
patient is intubated; left a calling card and offered a silent prayer per request of RN
--- NOTE | 2019-09-09 15:58 | NURSING ---
Pt's took home her wedding band earlier today. Able to get pt's wedding ring off. It is locked in the med photograph printer pt's room.
[2019-09-09] MEDS: Propofol 10MG/Ml 1,000 MG/100 ML Bottle 32.3 MG CONT INF ×2 (17:14→19:53)
[2019-09-09 19:55] LABS: Allen Test POS; Base Excess -2 mmol/L (-2 to +2); Bicarbonate 24.6 mmol/L (22-26); Blood Gas Specimen Type ART; FI02 60; Mode A-C; O2 Delivery Device Vent; PEEP 5; PO2 130 mmHG (75-100); RR 16; SITE L Radial; SO2 99 % (95-99); Time Given 1947; Total Carbon Dioxide 26 mmol/L; Vt 500; pCO2 50.2 mmHg (35-45)
[2019-09-10] VITALS (51 sets, daily range): BP systolic 97–156; BP diastolic 50–93; PULSE 57–107; RESP 16; TEMP 36.6–37.4; O2SAT 94–99
[2019-09-10] MEDS: Propofol 10MG/Ml 1,000 MG/100 ML Bottle 17.9 MG CONT INF (03:19)
[2019-09-10] MEDS: Ipratropium/Albuterol Sulfate 3 ML AMPUL.NEB INHALATION ×6 (03:21→23:03)
[2019-09-10] MEDS: fentaNYL drip 100 ML 15 MCG IV ×4 (03:23→23:24)
[2019-09-10 05:04] LABS: Absolute Lymphocyte Count 0.62 X10^3/uL (0.83-4.51); Absolute Neutrophil Count 21.1 X10^3/uL (2.0-7.7); Basophil# 0.05 X10^3/uL; Basophil% 0.2 % (0-1); Eosinophil# 0.04 X10^3/uL; Eosinophils% 0.2 % (0-5); Hematocrit 40.2 % (37-47); Hemoglobin 13.2 g/dL (12.0-15.0); Lymphocyte # 0.62 X10^3/ul (4.0); Lymphocyte % 2.7 % (19-41); Mean Corp Hgb Conc 32.8 g/dL (32-36); Mean Corpuscular Hgb 30.3 pg (27.0-32.0); Mean Corpuscular Volume 92.4 fL (81-99); Mean Platelet Vol. 11.2 fl (6.2-12.0); Monocyte# 1.13 X10^3/uL; Monocyte% 4.9 % (0-10); NRBC Flagged by Analyzer 0 % (0-5); Neutrophil # 21.05 X10^3/uL (2.7-7.7); Neutrophil % 90.4 % (47-70); POSITIVE DIFFERENTIAL YES; POSITIVE MORPHOLOGY YES; Platelet Count 238 K/mm3 (150-450); RBC Distribution Width SD 47.8 fl (35.1-43.9); Red Blood Count 4.35 M/mm3 (4.2-5.4); White Blood Count 23.3 K/mm3 (4.4-11.0)
[2019-09-10 05:05] LABS: Differential Indicated SCAN CRITERIA MET
[2019-09-10 05:21] LABS: ALB/GLOB Ratio 0.6 RATIO (0.9-2.4); AST(SGOT) 38 U/L (15-37); Alanine Aminotransfer ALT/SGPT 42 U/L (13-56); Albumin, Serum 2.7 g/dL (3.2-5.0); Alkaline Phosphatase 89 U/L (45-117); Anion Gap 6 (5-15); BUN 26 mg/dL (7-18); Calcium,Total 7.8 mg/dL (8.5-10.1); Chloride 106 mmol/L (98-107); Creatinine, Serum 1.24 mg/dL (0.55-1.02); EST Glomerular Filtration Rate 49 mL/min (>60); Est Glom Filt Rate - Afr Amer 60 mL/min (>60); Estimated Creatinine Clearance 48.95 ml/min; Globulin 4.5 g/dL (2.2-4.2); Glucose 173 mg/dL (74-106); Protein, Total 7.2 g/dL (6.4-8.2); Sodium Level 137 mmol/L (136-145)
[2019-09-10 05:26] LABS: Differential Comment SCANNED
[2019-09-10 05:31] LABS: Allen Test POS; Base Excess -1 mmol/L (-2 to +2); Bicarbonate 25.5 mmol/L (22-26); Blood Gas Specimen Type ART; FI02 35; Mode A-C; O2 Delivery Device Vent; PEEP 5; PO2 63 mmHG (75-100); RR 16; SITE R Radial; SO2 90 % (95-99); Time Given 524; Total Carbon Dioxide 27 mmol/L; Vt 500; pCO2 49.3 mmHg (35-45); pH 7.32 (7.35-7.45)
--- NOTE | 2019-09-10 06:37 | PN_ITS ---
Subjective: The patient was seen and examined at the bedside this morning. Events from the last 24 hours have been reviewed. Yesterday afternoon, the patient had to be placed on Nimbex due to persistent bronchospasm leading to significantly elevated airway pressures, ventilator dyssynchrony and an overall inability to thoroughly ventilate the patient. Since that time, the patient's acid-base status has improved. Her FiO2 requirement is down to 40% this morning. She remains on assist control mode of mechanical ventilation with a plateau pressure noted to be 27 this morning. She is tolerating tube feeds without issue. The patient did require PICC line placement yesterday to facilitate vasopressor administration. The patient is currently documented to be overall net +4 L for the hospital admission. Creatinine is stable with increasing urine output noted by nursing staff. Objective: The patient's most recent lab work, culture data and imaging studies have all been personally reviewed. Lower extremity Dopplers were negative for the presence of a DVT. Respiratory viral panel was negative. Strep and urine Legionella antigens were negative. Blood, urine and sputum cultures are pending. General: - - Intubated, sedated and mechanically ventilated. No ventilator dyssynchrony. 4 out of 4 twitches on TOF. BIS: 50 HEENT: Atraumatic, PERRLA, Normocephalic Oral: No Gingival or Mucosal Lesions/ Ulcerations, - - Endotracheal and OG tubes in place Neck: Supple, No Nodes, Trachea Midline Lungs: - - Diminished air movement bilaterally with continued expiratory wheezes. Cardiovascular: Regular rate, Regular Rhythm, Normal S1, Normal S2, No murmurs Abdomen: Bowel Sounds Present, Soft, Non Tender, Obese Extremities: No clubbing, No cyanosis, Edema Skin: No breakdown Musculoskeletal: No Tenderness to Palpation of Joints or Extremities Lymphatic: No Cervical, Supraclavicular, or Inguinal Adenopathy Neurological: - - Unable to assess as the patient is currently sedated and chemically paralyzed. Vital Signs Temp Pulse Resp BP Pulse Ox 98.2 F 64 16 108/71 97 09/10/19 06:00 09/10/19 06:00 09/10/19 06:00 09/10/19 06:00 09/10/19 06:00 Oxygen Flow Rate (L/min) 6 Oxygen Delivery Method Mechanical Ventilator Weight: 265 lb 6.985 oz Body Mass Index (BMI) 45.1 Intake and Output for Last 24 Hours 09/08/19 09/09/19 09/10/19 23:59 23:59 23:59 Intake Total 1727.08 / 1727.08 2085.27 / 2317.83 1162.45 / 1162.45 Output Total 300 / 300 490 / 620 205 / 205 Balance 1427.08 / 1427.08 1595.27 / 1697.83 957.45 / 957.45 Labs (Last 48 Hours) 09/08/19 09/08/19 09/08/19 16:00 16:00 16:00 WBC 16.3 H RBC 5.15 Hgb 15.3 H Hct 46.7 MCV 90.7 MCH 29.7 MCHC 32.8 RDW Std Deviation 45.0 H RDW Coeff of Km 13.6 Plt Count 270 MPV 11.0 Immature Gran % (Auto) 0.700 Neut % (Auto) 85.6 H Lymph % (Auto) 4.7 L [place] % (Auto) 8.5 Eos % (Auto) 0.1 Baso % (Auto) 0.4 Absolute Neuts (auto) 14.0 H Absolute Lymphs (auto) 0.77 L Nucleated RBC % 0 Differential Comment D-Dimer Quant (PE/DVT) Cancelled Specimen Type Sample Site pH Bicarbonate Actual POC Total CO2 Base Excess O2 Saturation O2 % ABG pCO2 ABG pO2 Ady Test Respiration Rate O2 Delivery Device Minute Volume Vent Mode Tidal Volume POC PEEP EPAP IPAP Blood Gas Notified Whom Blood Gas Notified Time Sodium 137 Potassium 4.4 Chloride 106 Carbon Dioxide 26.0 Anion Gap 5 BUN 11 Creatinine 0.92 Estim Creat Clear Calc 65.98 Est GFR (MDRD) Af Amer 84 Est GFR (MDRD) Non-Af 70 BUN/Creatinine Ratio 11.9 Glucose 122 H Lactic Acid Calcium 9.2 Total Bilirubin AST ALT Alkaline Phosphatase Total Creatine Kinase Troponin I < 0.015 Total Protein Albumin Globulin Albumin/Globulin Ratio Triglycerides MRSA (PCR) 09/08/19 09/08/19 09/08/19 16:00 16:25 16:40 WBC RBC Hgb Hct MCV MCH MCHC RDW Std Deviation RDW Coeff of Km Plt Count MPV Immature Gran % (Auto) Neut % (Auto) Lymph % (Auto) [place] % (Auto) Eos % (Auto) Baso % (Auto) Absolute Neuts (auto) Absolute Lymphs (auto) Nucleated RBC % Differential Comment D-Dimer Quant (PE/DVT) 1.27 H* Specimen Type ART Sample Site L Radial pH 7.36 Bicarbonate Actual 24.2 POC Total CO2 26 Base Excess -1 O2 Saturation 96 O2 % 100 ABG pCO2 43.3 ABG pO2 89 Ady Test POS Respiration Rate 12 O2 Delivery Device Bi / C PAP Minute Volume Vent Mode Tidal Volume POC PEEP EPAP 8 IPAP 16 Blood Gas Notified Whom MD Blood Gas Notified Time 1635 Sodium Potassium Chloride Carbon Dioxide Anion Gap BUN Creatinine Estim Creat Clear Calc Est GFR (MDRD) Af Amer Est GFR (MDRD) Non-Af BUN/Creatinine Ratio Glucose Lactic Acid 1.3 Calcium Total Bilirubin AST ALT Alkaline Phosphatase Total Creatine Kinase Troponin I Total Protein Albumin Globulin Albumin/Globulin Ratio Triglycerides MRSA (PCR) 09/09/19 09/09/19 09/09/19 02:30 03:17 04:15 WBC RBC Hgb Hct MCV MCH MCHC RDW Std Deviation RDW Coeff of Km Plt Count MPV Immature Gran % (Auto) Neut % (Auto) Lymph % (Auto) [place] % (Auto) Eos % (Auto) Baso % (Auto) Absolute Neuts (auto) Absolute Lymphs (auto) Nucleated RBC % Differential Comment D-Dimer Quant (PE/DVT) Specimen Type ART Sample Site L Radial pH 7.25 L Bicarbonate Actual 24.9 POC Total CO2 27 Base Excess -2 O2 Saturation 93 L O2 % 80 ABG pCO2 57.3 H ABG pO2 80 Ady Test POS Respiration Rate 14 O2 Delivery Device Vent Minute Volume Vent Mode A-C Tidal Volume 500 POC PEEP 5 EPAP IPAP Blood Gas Notified Whom [place] [facility] [employer] MD Blood Gas Notified Time 315 Sodium 137 Potassium 4.2 Chloride 105 Carbon Dioxide 25.0 Anion Gap 7 BUN 15 Creatinine 1.29 H Estim Creat Clear Calc 47.06 Est GFR (MDRD) Af Amer 57 L Est GFR (MDRD) Non-Af 47 L BUN/Creatinine Ratio 11.6 Glucose 192 H Lactic Acid Calcium 8.0 L Total Bilirubin AST ALT Alkaline Phosphatase Total Creatine Kinase 618 H Troponin I Total Protein Albumin Globulin Albumin/Globulin Ratio Triglycerides 80 MRSA (PCR) Negative 09/09/19 09/09/19 09/09/19 04:15 08:04 09:58 WBC 23.3 H RBC 4.64 Hgb 13.5 Hct 42.5 MCV 91.6 MCH 29.1 MCHC 31.8 L RDW Std Deviation 47.1 H RDW Coeff of Km 14.1 Plt Count 235 MPV 11.3 Immature Gran % (Auto) 0.600 Neut % (Auto) 92.0 H Lymph % (Auto) 2.0 L [place] % (Auto) 4.7 Eos % (Auto) 0.5 Baso % (Auto) 0.2 Absolute Neuts (auto) 21.5 H Absolute Lymphs (auto) 0.47 L Nucleated RBC % 0 Differential Comment SCANNED D-Dimer Quant (PE/DVT) Specimen Type ART ART Sample Site R Radial R Radial pH 7.27 L 7.27 L Bicarbonate Actual 25.6 27.4 H POC Total CO2 27 29 Base Excess -1 1 O2 Saturation 90 L 95 O2 % 70 70 ABG pCO2 55.3 H 59.6 H ABG pO2 69 L 88 Ady Test Respiration Rate 16 14 O2 Delivery Device Vent Vent Minute Volume Vent Mode A-C A-C Tidal Volume 500 500 POC PEEP 8 8 EPAP IPAP Blood Gas Notified Whom ICU MD ICU MD Blood Gas Notified Time 802 956 Sodium Potassium Chloride Carbon Dioxide Anion Gap BUN Creatinine Estim Creat Clear Calc Est GFR (MDRD) Af Amer Est GFR (MDRD) Non-Af BUN/Creatinine Ratio Glucose Lactic Acid Calcium Total Bilirubin AST ALT Alkaline Phosphatase Total Creatine Kinase Troponin I Total Protein Albumin Globulin Albumin/Globulin Ratio Triglycerides MRSA (PCR) 09/09/19 09/09/19 09/10/19 13:13 19:50 04:55 WBC 23.3 H RBC 4.35 Hgb 13.2 Hct 40.2 MCV 92.4 MCH 30.3 MCHC 32.8 RDW Std Deviation 47.8 H RDW Coeff of Km 14.0 Plt Count 238 MPV 11.2 Immature Gran % (Auto) 1.600 H Neut % (Auto) 90.4 H Lymph % (Auto) 2.7 L [place] % (Auto) 4.9 Eos % (Auto) 0.2 Baso % (Auto) 0.2 Absolute Neuts (auto) 21.1 H Absolute Lymphs (auto) 0.62 L Nucleated RBC % 0 Differential Comment SCANNED D-Dimer Quant (PE/DVT) Specimen Type ART ART Sample Site R Radial L Radial pH 7.20 L 7.30 L Bicarbonate Actual 26.6 H 24.6 POC Total CO2 29 26 Base Excess -1 -2 O2 Saturation 95 99 O2 % 70 60 ABG pCO2 67.4 H* 50.2 H ABG pO2 94 130 H Ady Test POS Respiration Rate 14 16 O2 Delivery Device Vent Vent Minute Volume 8.00 Vent Mode A-C A-C Tidal Volume 450 500 POC PEEP 8 5 EPAP IPAP Blood Gas Notified Whom ICU ICU MD Blood Gas Notified Time 1311 1947 Sodium Potassium Chloride Carbon Dioxide Anion Gap BUN Creatinine Estim Creat Clear Calc Est GFR (MDRD) Af Amer Est GFR (MDRD) Non-Af BUN/Creatinine Ratio Glucose Lactic Acid Calcium Total Bilirubin AST ALT Alkaline Phosphatase Total Creatine Kinase Troponin I Total Protein Albumin Globulin Albumin/Globulin Ratio Triglycerides MRSA (PCR) 09/10/19 09/10/19 04:55 05:25 WBC RBC Hgb Hct MCV MCH MCHC RDW Std Deviation RDW Coeff of Km Plt Count MPV Immature Gran % (Auto) Neut % (Auto) Lymph % (Auto) [place] % (Auto) Eos % (Auto) Baso % (Auto) Absolute Neuts (auto) Absolute Lymphs (auto) Nucleated RBC % Differential Comment D-Dimer Quant (PE/DVT) Specimen Type ART Sample Site R Radial pH 7.32 L Bicarbonate Actual 25.5 POC Total CO2 27 Base Excess -1 O2 Saturation 90 L O2 % 35 ABG pCO2 49.3 H ABG pO2 63 L Ady Test POS Respiration Rate 16 O2 Delivery Device Vent Minute Volume 8.00 Vent Mode A-C Tidal Volume 500 POC PEEP 5 EPAP IPAP Blood Gas Notified Whom RN Blood Gas Notified Time 524 Sodium 137 Potassium 4.0 Chloride 106 Carbon Dioxide 25.0 Anion Gap 6 BUN 26 H Creatinine 1.24 H Estim Creat Clear Calc 48.95 Est GFR (MDRD) Af Amer 60 Est GFR (MDRD) Non-Af 49 L BUN/Creatinine Ratio 21.0 H Glucose 173 H Lactic Acid Calcium 7.8 L Total Bilirubin 0.40 AST 38 H ALT 42 Alkaline Phosphatase 89 Total Creatine Kinase Troponin I Total Protein 7.2 Albumin 2.7 L Globulin 4.5 H Albumin/Globulin Ratio 0.6 L Triglycerides MRSA (PCR) Microbiology 09/08/19 16:05 Mucosa - Nasopharyngeal Respiratory Panel (PCR) - Final 09/08/19 21:57 Urine, Random Legionella Antigen - Final 09/08/19 21:57 Urine, Random Streptococcus pneumoniae Antigen (M - Final 09/08/19 16:05 Mucosa - Nasopharyngeal Influenza Types A,B Direct FA ([facility]) - Final Clinical Impression(s) from Imaging Studies Chest X-Ray 09/08/19 15:56 IMPRESSION: Right lower lung zone atelectasis and/or infiltrate. Electronically Signed: Teodoro Brooks, at 16:30 EST Tel , Service support , Chest CTA 09/08/19 17:51 IMPRESSION: 1. Technically limited examination. 2. No large acute central pulmonary embolism. 3. Unable to evaluate lobar and segmental branches. 4. Recommend ultrasonography of the lower extremity venous system to exclude presence of deep venous thrombosis and complete the risk stratification of the patient at risk for venous thromboembolic disease. 5. Atypical distribution anterior and upper lobe ground glass opacities. This appearance is nonspecific, possibly related to viral pneumonia. 6. Pectus excavatum congenital sternal deformity. 7. Severely elevated BMI. Electronically Signed: Oumar Ozuna, at 19:15 EST Tel , Service support , Chest X-Ray 09/09/19 01:05 IMPRESSION: NG tube and ET tube in place with the ET tube 3.2 cm above the evan. Patchy consolidations in both lungs. Pneumonia suspected Electronically Signed: Perfecto Espinoza MD at 2:57 EST Tel , Service support , Medical Necessity - Tobacco Use Smoking Status: Current every day smoker Tobacco Use: Cigarettes Assessment/Plan All Active Problems Acute respiratory failure with hypoxia (Acute) Pneumonia (Acute) Sepsis (Acute) RECOMMENDATIONS: 1. Continue broad-spectrum antimicrobials, scheduled bronchodilators and IV steroids. 2. Continue patient on current assist control mode settings. Goal to maintain a plateau pressure less than 30. 3. Continue propofol, fentanyl and Nimbex as ordered. 4. Continue tube feeds. 5. Continue Lovenox and Pepcid for prophylaxis. 6. Continue to wean FiO2 to maintain oxygen saturations at or above 90%. IMPRESSIONS: 1. Acute combined respiratory failure The patient presented to the hospital in respiratory distress with radiographic evidence of community-acquired pneumonia. Patient subsequently decompensated, despite the use of noninvasive positive pressure ventilatory support and did require intubation. The patient will remain on her current sedation regimen along with chemical paralysis with Nimbex. She is improving clinically from a respiratory perspective. Continue broad-spectrum antimicrobials, bronchodilators and steroids. Continue tube feeds as ordered. 2. Severe sepsis secondary to community-acquired pneumonia Continue current supportive measures as noted above. The patient remains hemodynamically stable on a small amount of Levophed, which was initiated largely due to hypotension that developed as a consequence of the patient's sedation regimen. 3. Obstructive sleep apnea The patient has an apparent history of obstructive sleep apnea of unknown severity, for which she is reportedly noncompliant with the use of nocturnal Pap therapy. Recommend that upon successful extubation that she then be transitioned to BiPAP nightly while she remains admitted to the hospital. 4. Longstanding tobacco dependency/depression/obesity Complicates care, management, recovery and prognosis. Nicotine replacement therapy can be utilized while the patient is admitted to the hospital. Smoking cessation is strongly advised. TIME: 42 minutes of critical care time, independent of procedures, was spent addressing the patient's acute combined respiratory failure, severe sepsis secondary to community-acquired pneumonia, obstructive sleep apnea, longstanding tobacco dependency, review of all data and collaboration with the care team. ([id number]) Code Visit [id number]: [id number] Critical care first hour
[2019-09-10] MEDS: TITRATION PARAMETER CHANGE 1 EACH IV (07:02)
[2019-09-10] MEDS: Propofol 10MG/Ml 1,000 MG/100 ML Bottle 18.1 MG CONT INF ×3 (07:41→17:24)
--- NOTE | 2019-09-10 08:47 | PN_ITS ---
Patient Problems: Active and Suspected Problems Acute respiratory failure with hypoxia (Acute) Pneumonia (Acute) Sepsis (Acute) Reason for Visit: Intubated, on vasopressor, norepinephrine. On sedative propofol and fentanyl and cisatracurium, NM paralytic agent. Objective: Patient did not had fever chills. Heart rate and blood pressure maintained. Currently on 40% FiO2, respiratory rate 16, on assist control mode ventilator. Vitals/I&O's: Vital Signs Temp Pulse Resp BP Pulse Ox 98.3 F 62 16 125/66 H 98 09/10/19 08:00 09/10/19 08:00 09/10/19 08:00 09/10/19 08:00 09/10/19 08:00 Oxygen Flow Rate (L/min) 6 Oxygen Delivery Method Mechanical Ventilator Weight: 265 lb 6.985 oz Body Mass Index (BMI) 45.1 Intake and Output for Last 24 Hours 09/08/19 09/09/19 09/10/19 23:59 23:59 23:59 Intake Total 1727.08 / 1727.08 2085.27 / 2317.83 1330.77 / 1330.77 Output Total 300 / 300 490 / 620 205 / 205 Balance 1427.08 / 1427.08 1595.27 / 1697.83 1125.77 / 1125.77 General: - - Sedated HEENT: Atraumatic, PERRLA, EOMI, Normocephalic Oral: Dry Mucosa Neck: Supple, No JVD, Negative Carotid Bruits Lungs: Diminished - Air entry diminished in bilateral lung bases, - - On vent assist control mode Cardiovascular: Regular rate, Regular Rhythm, Normal S1, Normal S2, No murmurs Abdomen: Bowel Sounds Present, Soft, Non Tender, Non-Distended, - - On tube feed Extremities: Edema Skin: No rashes, No breakdown Musculoskeletal: - - On neuromuscular paralytic agent Neurological: - - Sedated, on ventilator Microbiology Past 72 Hours 09/08/19 16:05 Mucosa - Nasopharyngeal Respiratory Panel (PCR) - Final 09/08/19 21:57 Urine, Random Legionella Antigen - Final 09/08/19 21:57 Urine, Random Streptococcus pneumoniae Antigen (M - Final 09/08/19 16:05 Mucosa - Nasopharyngeal Influenza Types A,B Direct FA (BRANDON) - Final Laboratory Results 09/09/19 09:58: Specimen Type ART, Sample Site R Radial, pH 7.27 L, Bicarbonate Actual 27.4 H, POC Total CO2 29, Base Excess 1, O2 Saturation 95, O2 % 70, ABG pCO2 59.6 H, ABG pO2 88, Respiration Rate 14, O2 Delivery Device Vent, Vent Mode A-C, Tidal Volume 500, POC PEEP 8, Blood Gas Notified Whom ICU MD, Blood Gas Notified Time 956 09/09/19 13:13: Specimen Type ART, Sample Site R Radial, pH 7.20 L, Bicarbonate Actual 26.6 H, POC Total CO2 29, Base Excess -1, O2 Saturation 95, O2 % 70, ABG pCO2 67.4 H*, ABG pO2 94, Respiration Rate 14, O2 Delivery Device Vent, Vent Mode A-C, Tidal Volume 450, POC PEEP 8, Blood Gas Notified Whom ICU MD, Blood Gas Notified Time 1311 09/09/19 19:50: Specimen Type ART, Sample Site L Radial, pH 7.30 L, Bicarbonate Actual 24.6, POC Total CO2 26, Base Excess -2, O2 Saturation 99, O2 % 60, ABG pCO2 50.2 H, ABG pO2 130 H, Ady Test POS, Respiration Rate 16, O2 Delivery Device Vent, Minute Volume 8.00, Vent Mode A-C, Tidal Volume 500, POC PEEP 5, Blood Gas Notified Whom ICU MD, Blood Gas Notified Time 19409/10/19 04:55: WBC 23.3 H, RBC 4.35, Hgb 13.2, Hct 40.2, MCV 92.4, MCH 30.3, MCHC 32.8, RDW Std Deviation 47.8 H, RDW Coeff of Km 14.0, Plt Count 238, MPV 11.2, Immature Gran % (Auto) 1.600 H, Neut % (Auto) 90.4 H, Lymph % (Auto) 2.7 L , [place] % (Auto) 4.9, Eos % (Auto) 0.2, Baso % (Auto) 0.2, Absolute Neuts (auto) 21.1 H, Absolute Lymphs (auto) 0.62 L, Nucleated RBC % 0, Differential Comment SCANNED 09/10/19 04:55: Sodium 137, Potassium 4.0, Chloride 106, Carbon Dioxide 25.0, Anion Gap 6, BUN 26 H, Creatinine 1.24 H, Estim Creat Clear Calc 48.95, Est GFR (MDRD) Af Amer 60, Est GFR (MDRD) Non-Af 49 L, BUN/Creatinine Ratio 21.0 H, Glucose 173 H, Calcium 7.8 L, Total Bilirubin 0.40, AST 38 H, ALT 42, Alkaline Phosphatase 89, Total Protein 7.2, Albumin 2.7 L, Globulin 4.5 H, Albumin/Globulin Ratio 0.6 L 09/10/19 05:25: Specimen Type ART, Sample Site R Radial, pH 7.32 L, Bicarbonate Actual 25.5, POC Total CO2 27, Base Excess -1, O2 Saturation 90 L, O2 % 35, ABG pCO2 49.3 H, ABG pO2 63 L, Ady Test POS, Respiration Rate 16, O2 Delivery Device Vent, Minute Volume 8.00, Vent Mode A-C, Tidal Volume 500, POC PEEP 5, Blood Gas Notified Whom RN, Blood Gas Notified Time 524 Current Medications Acetaminophen (Tylenol Liquid) 650 mg GT Q6H PRN PRN PRN Reason: Pain Score 1-10/Temp > 100.7 F Albuterol Sulfate (Ventolin Aerosols) 2.5 mg INHALATION Q2H PRN PRN PRN Reason: SOB/WHEEZING Albuterol/Ipratropium (Duoneb) 3 ml INHALATION Q4H.RT [facility] Last Admin: 09/10/19 06:54 Dose: 3 ml Documented by: Bupropion HCl (Wellbutrin Tablets) 100 mg GT BID [facility] Last Admin: 09/09/19 21:21 Dose: 100 mg Documented by: Chlorhexidine Gluconate () 1 each TOPICAL DAILY [facility] Last Admin: 09/09/19 04:58 Dose: 1 each Documented by: Chlorhexidine Gluconate () 15 ml PO BID [facility] Last Admin: 09/09/19 21:20 Dose: 15 ml Documented by: Dextrose (D50w Syringe) 0 gm IV X1 PRN; Protocol PRN Reason: Hypoglycemia Enoxaparin Sodium (Lovenox) 40 mg SC DAILY [facility] Last Admin: 09/09/19 12:13 Dose: 40 mg Documented by: Famotidine (Pepcid) 20 mg GT BID [facility] Last Admin: 09/09/19 21:21 Dose: 20 mg Documented by: Glucagon () 1 mg IM .X1 PRN PRN Reason: Hypoglycemia Fentanyl () 100 mls @ 15 mls/hr IV UD [facility]; Protocol Last Titration: 09/10/19 08:00 Dose: 150 mcg/hr, 15 mls/hr Documented by: Propofol (Diprivan) 1,000 mg in 100 mls @ 7.224 mls/hr CONT INF .Q12H EZE; Protocol Last Titration: 09/10/19 08:00 Dose: 25 mcg/kg/min, 18.1 mls/hr Documented by: Piperacillin Sod/Tazobactam (Sod 3.375 gm/ Sodium Chloride) 50 mls @ 12.5 mls/h r IV Q8 [facility] Last Infusion: 09/10/19 07:00 Dose: 12.5 mls/hr Documented by: Sodium Chloride () 250 mls @ 15 mls/hr IV .[id number] PRN PRN Reason: Saline Flush Last Infusion: 09/10/19 07:00 Dose: 0 mls/hr Documented by: Enteral Nutritional Formula (Vital Af 1.2 Alexx Liquid) 1,000 mls @ 60 mls/hr GT .[id number] [facility] Last Admin: 09/10/19 02:36 Dose: Not Given Documented by: Cisatracurium Besylate 100 mg/ (Sodium Chloride) 250 mls @ 36.12 mls/hr IV .[id number] EZE; Protocol Last Titration: 09/10/19 08:00 Dose: 2 mcg/kg/min, 36.1 mls/hr Documented by: Norepinephrine Bitartrate 8 mg (/ Sodium Chloride) 250 mls @ 9.375 mls/hr CONT INF .[id number] [facility]; Protocol Last Titration: 09/10/19 08:00 Dose: 5 mcg/min, 9.4 mls/hr Documented by: Insulin Human Lispro (Humalog Kwikpen (Bkc)) 0 unit SC Q6 EZE; Protocol Labetalol HCl (Trandate) 10 mg IV Q4H PRN PRN PRN Reason: SBP GREATER THAN 180 Methylprednisolone (Solu-Medrol) 40 mg IV Q8 [facility] Last Admin: 09/10/19 06:03 Dose: 40 mg Documented by: Ondansetron HCl (Zofran) 4 mg IV Q8H PRN PRN PRN Reason: NAUSEA/VOMITING Sodium Chloride () 10 - 40 ml IV UD PRN PRN Reason: SALINE FLUSH Last Admin: 09/09/19 21:29 Dose: 10 ml Documented by: STROKE Vital Signs/Narrative: Vital Signs Temp Pulse Resp BP Pulse Ox 09/10/19 08:00 98.3 F 62 16 125/66 H 98 09/10/19 07:00 98.3 F 67 16 115/69 96 09/10/19 06:54 63 16 97 09/10/19 06:00 98.2 F 64 16 108/71 97 09/10/19 05:09 64 16 94 09/10/19 05:00 98.1 F 65 16 117/65 95 Medical Necessity - Tobacco Use Smoking Status: Current every day smoker Tobacco Use: Cigarettes Assessment/Plan All Active Problems Acute respiratory failure with hypoxia (Acute) Pneumonia (Acute) Sepsis (Acute) 44-year-old female admitted with shortness of breath and fever. In the ER she was found to 75% on room air. O she was put on BiPAP and then she was intubated last night. 1. Acute combined respiratory failure, present on admission: Secondary to community-acquired pneumonia. Patient is on assist control ventilator. I will see the 80s. Cisatracurium was added yesterday afternoon secondary to significantly elevated airway pressure, increased FiO2 requirement, ventilator dyssynchrony. FiO2 improved to 40% after NM paralytic agent. ABG improved to 7.3 on 35% FiO2/500/16/5. 2. Sepsis (fever, T-max 101.8, tachypnea, pulse greater than 90, leukocytosis right lower lobe infiltrate on chest x-ray ) secondary to right lower lobe pneumonia, [id number]: Urinary antigens are negative. Respiratory panel negative. Blood cultures are negative for about 48 hours Lactic acid is negative. On IV pressor, Levophed. Order to fluid started. DC IV fluid Patient still has leukocytosis. 2. Questionable underlying COPD- on aerosols and Solu-Medrol. She needs outpatient pulmonary follow-up with PFTs. 3. Obstructive obstructive sleep apnea-noncompliant with CPAP at home. Continue BiPAP while here. 4. Hypertensive urgency-BP up to 200/89 in the emergency room. Most recent blood pressure 101/50. Currently is on sedatives for intubation. 5. Morbid obesity-calorie controlled diet and dietitian evaluation. 6. Nicotine abuse-patch if desired. Smokes 3/4 packs/day since age 11. 7. Depression-Wellbutrin DVT prophylaxis: Lovenox Microbiology Past 72 Hours 09/08/19 16:05 Mucosa - Nasopharyngeal Respiratory Panel (PCR) - Final 09/08/19 21:57 Urine, Random Legionella Antigen - Final 09/08/19 21:57 Urine, Random Streptococcus pneumoniae Antigen (M - Final 09/08/19 16:05 Mucosa - Nasopharyngeal Influenza Types A,B Direct FA (BRANDON) - Final Laboratory Results 09/09/19 09:58: Specimen Type ART, Sample Site R Radial, pH 7.27 L, Bicarbonate Actual 27.4 H, POC Total CO2 29, Base Excess 1, O2 Saturation 95, O2 % 70, ABG pCO2 59.6 H, ABG pO2 88, Respiration Rate 14, O2 Delivery Device Vent, Vent Mode A-C, Tidal Volume 500, POC PEEP 8, Blood Gas Notified Whom ICU MD, Blood Gas Notified Time 956 09/09/19 13:13: Specimen Type ART, Sample Site R Radial, pH 7.20 L, Bicarbonate Actual 26.6 H, POC Total CO2 29, Base Excess -1, O2 Saturation 95, O2 % 70, ABG pCO2 67.4 H*, ABG pO2 94, Respiration Rate 14, O2 Delivery Device Vent, Vent Mode A-C, Tidal Volume 450, POC PEEP 8, Blood Gas Notified Whom ICU MD, Blood Gas Notified Time 13109/09/19 19:50: Specimen Type ART, Sample Site L Radial, pH 7.30 L, Bicarbonate Actual 24.6, POC Total CO2 26, Base Excess -2, O2 Saturation 99, O2 % 60, ABG pCO2 50.2 H, ABG pO2 130 H, Ady Test POS, Respiration Rate 16, O2 Delivery Device Vent, Minute Volume 8.00, Vent Mode A-C, Tidal Volume 500, POC PEEP 5, Blood Gas Notified Whom ICU MD, Blood Gas Notified Time 19409/10/19 04:55: WBC 23.3 H, RBC 4.35, Hgb 13.2, Hct 40.2, MCV 92.4, MCH 30.3, MCHC 32.8, RDW Std Deviation 47.8 H, RDW Coeff of Km 14.0, Plt Count 238, MPV 11.2, Immature Gran % (Auto) 1.600 H, Neut % (Auto) 90.4 H, Lymph % (Auto) 2.7 L , [place] % (Auto) 4.9, Eos % (Auto) 0.2, Baso % (Auto) 0.2, Absolute Neuts (auto) 21.1 H, Absolute Lymphs (auto) 0.62 L, Nucleated RBC % 0, Differential Comment SCANNED 09/10/19 04:55: Sodium 137, Potassium 4.0, Chloride 106, Carbon Dioxide 25.0, Anion Gap 6, BUN 26 H, Creatinine 1.24 H, Estim Creat Clear Calc 48.95, Est GFR (MDRD) Af Amer 60, Est GFR (MDRD) Non-Af 49 L, BUN/Creatinine Ratio 21.0 H, Glucose 173 H, Calcium 7.8 L, Total Bilirubin 0.40, AST 38 H, ALT 42, Alkaline Phosphatase 89, Total Protein 7.2, Albumin 2.7 L, Globulin 4.5 H, Albumin/Globulin Ratio 0.6 L 09/10/19 05:25: Specimen Type ART, Sample Site R Radial, pH 7.32 L, Bicarbonate Actual 25.5, POC Total CO2 27, Base Excess -1, O2 Saturation 90 L, O2 % 35, ABG pCO2 49.3 H, ABG pO2 63 L, Ady Test POS, Respiration Rate 16, O2 Delivery Device Vent, Minute Volume 8.00, Vent Mode A-C, Tidal Volume 500, POC PEEP 5, Blood Gas Notified Whom RN, Blood Gas Notified Time 524 Code Visit Inpatient E&M: 82683 Subs Hosp L3
[2019-09-10] MEDS: Enoxaparin 40 MG/0.4 ML Syringe SC (11:06)
[2019-09-10] MEDS: buPROPion 100 MG Tablet GT ×2 (11:06→22:51)
[2019-09-10] MEDS: Famotidine 20 MG Tablet GT ×2 (11:06→22:38)
[2019-09-10] MEDS: Chlorhexidine 15 ML PO ×2 (11:07→22:37)
--- NOTE | 2019-09-10 11:15 | CASEMGMT ---
Social Work SW met with pt spouse Nicolas in pt room. Emotional support provided. Nicolas confirms he has support system around him and that pt dgt has been visiting and supporting pt as well. SW informed Nicolas that SW is available if any needs arise. Irma Vazquez, ANAHY
[2019-09-10 11:30] LABS: Bedside Glucose 168 mg/dL (70-110)
[2019-09-10] MEDS: Insulin Lispro 100 UNIT/ML INSULN.PEN SC ×2 (11:30→18:20)
--- NOTE | 2019-09-10 11:30 | CASEMGMT ---
RN CM Note: Family member participated in ICU interdisciplinary rounds. Pt remains on vent, sedated. Family aware CM is available for any concerns and will be assisting in discharge planning when appropriate. Jennifer ARNOLDN RN ACM
--- NOTE | 2019-09-10 11:34 | NURSING ---
Pt's Nicolas is taking home pt's wedding ring & cell phone.
--- NOTE | 2019-09-10 15:22 | CHAPLAIN ---
Type of Pastoral Visit ___ Initial Visit ___ Follow-up Visit ___ On-call Visit ___ General Patient Visit ___ Spiritual Assessment ___ Family Conference ___ Bereavement ___ Rapid Response ___ Code Blue _x__ Other (describe below) Pastoral Care Referral From ___ Patient _x__ Family _x__ Nurse ___ Physician ___ Elementary School Librarian ___ Car Unloader Helper ___ Other (describe below) Sacrament/Intervention _x__ Active listening ___ Anointing ___ Yazdanism ___ Bereavement ___ Communion ___ Cande exploration ___ ___ Life review _x__ Prayer ___ Reconciliation ___ Sacrament of Sick _x__ Supportive presence ___ Wedding ___ Other (describe below) Pastoral Comments patient is intubated but family member available in room; gave time to listen and permit family to process; offered prayer which was welcomed
[2019-09-10] MEDS: CHLORHEXIDINE GLUC 2% CLOTH 1 EACH TOWELETTE TOPICAL (17:48)
[2019-09-10] MEDS: Vital AF 1.2 Cal Liquid 1,000 ML 60 ML GT (18:33)
[2019-09-10 19:51] LABS: Bedside Glucose 158 mg/dL (70-110)
[2019-09-11] VITALS (37 sets, daily range): BP systolic 99–142; BP diastolic 49–87; PULSE 67–122; RESP 16–24; TEMP 37–37.7; O2SAT 95–99
[2019-09-11 00:30] LABS: Bedside Glucose 155 mg/dL (70-110)
[2019-09-11] MEDS: Ipratropium/Albuterol Sulfate 3 ML AMPUL.NEB INHALATION ×6 (03:18→22:16)
[2019-09-11 03:52] LABS: Absolute Lymphocyte Count 0.74 X10^3/uL (0.83-4.51); Absolute Neutrophil Count 12.4 X10^3/uL (2.0-7.7); Basophil# 0.03 X10^3/uL; Basophil% 0.2 % (0-1); Eosinophil# 0.01 X10^3/uL; Eosinophils% 0.1 % (0-5); Hematocrit 36.7 % (37-47); Hemoglobin 11.8 g/dL (12.0-15.0); Lymphocyte # 0.74 X10^3/ul (4.0); Lymphocyte % 5.1 % (19-41); Mean Corp Hgb Conc 32.2 g/dL (32-36); Mean Corpuscular Hgb 29.7 pg (27.0-32.0); Mean Corpuscular Volume 92.4 fL (81-99); Mean Platelet Vol. 11.4 fl (6.2-12.0); Monocyte# 1.12 X10^3/uL; Monocyte% 7.7 % (0-10); NRBC Flagged by Analyzer 0 % (0-5); Neutrophil # 12.35 X10^3/uL (2.7-7.7); Neutrophil % 85.2 % (47-70); Platelet Count 204 K/mm3 (150-450); RBC Distribution Width CV 14.3 % (11.6-14.6); RBC Distribution Width SD 48.4 fl (35.1-43.9); Red Blood Count 3.97 M/mm3 (4.2-5.4); White Blood Count 14.5 K/mm3 (4.4-11.0)
[2019-09-11 04:13] LABS: Anion Gap 2 (5-15); BUN 30 mg/dL (7-18); BUN/Creat Ratio 29.4 RATIO (10-20); Calcium,Total 7.7 mg/dL (8.5-10.1); Chloride 108 mmol/L (98-107); Creatinine, Serum 1.02 mg/dL (0.55-1.02); EST Glomerular Filtration Rate 62 mL/min (>60); Est Glom Filt Rate - Afr Amer 75 mL/min (>60); Estimated Creatinine Clearance 59.51 ml/min; Glucose 174 mg/dL (74-106); Potassium 4.5 mmol/L (3.5-5.1); Sodium Level 139 mmol/L (136-145)
[2019-09-11] MEDS: fentaNYL drip 100 ML 15 MCG IV ×2 (06:00→12:21)
[2019-09-11] MEDS: Propofol 10MG/Ml 1,000 MG/100 ML Bottle 14.4 MG CONT INF ×2 (06:30)
[2019-09-11] MEDS: Insulin Lispro 100 UNIT/ML INSULN.PEN SC ×3 (06:35→11:12)
--- NOTE | 2019-09-11 06:38 | PCM.PN.INT ---
Subjective: The patient was seen and examined at the bedside this morning. Events from the last 24 hours have been reviewed. The patient is currently afebrile, hemodynamically stable and maintaining appropriate oxygen saturations on 30% FiO2. The patient remains on propofol, fentanyl and cis atracurium. Plateau pressures this morning remain appropriate at less than 30. Per nursing report, the patient has continued to demonstrate bilateral wheezing overnight. She is currently documented to be overall net +6.8 L for the hospital admission. The patient's Levophed was discontinued yesterday at approximately 10 PM. Objective: The patient's most recent lab work, culture data and imaging studies have all been personally reviewed. Lower extremity Dopplers were negative for the presence of a DVT. Respiratory viral panel was negative. Strep and urine Legionella antigens were negative. Blood, urine and sputum cultures are pending. General: - - Remains intubated, sedated and mechanically ventilated. BIS has been in the 40s. HEENT: Atraumatic, PERRLA, Normocephalic Oral: No Gingival or Mucosal Lesions/ Ulcerations, - - Endotracheal and OG tubes remain in place Neck: Supple, No Nodes, Trachea Midline Lungs: - - There is improved air movement this morning with less wheezing. However, the patient is currently receiving an aerosol treatment. Cardiovascular: Regular rate, Regular Rhythm, Normal S1, Normal S2, No murmurs Abdomen: Bowel Sounds Present, Soft, Non Tender, Obese Extremities: No clubbing, No cyanosis, Edema Skin: No breakdown Musculoskeletal: No Tenderness to Palpation of Joints or Extremities, No Muscle Wasting Lymphatic: No Cervical, Supraclavicular, or Inguinal Adenopathy Neurological: - - Unable to assess as the patient is currently sedated and chemically paralyzed. Vital Signs Temp Pulse Resp BP Pulse Ox 99 F 76 16 106/65 97 09/11/19 05:00 09/11/19 05:26 09/11/19 05:26 09/11/19 05:00 09/11/19 05:26 Oxygen Flow Rate (L/min) 6 Oxygen Delivery Method Mechanical Ventilator Weight: 270 lb 11.642 oz Body Mass Index (BMI) 45.1 Intake and Output for Last 24 Hours 09/09/19 09/10/19 09/11/19 23:59 23:59 23:59 Intake Total 2085.27 / 2317.83 3700.86 / 4220.36 932.96 / 932.96 Output Total 490 / 620 955 / 1205 250 / 250 Balance 1595.27 / 1697.83 2745.86 / 3015.36 682.96 / 682.96 Labs (Last 48 Hours) 09/09/19 09/09/19 09/09/19 02:30 08:04 09:58 WBC RBC Hgb Hct MCV MCH MCHC RDW Std Deviation RDW Coeff of Km Plt Count MPV Immature Gran % (Auto) Neut % (Auto) Lymph % (Auto) Stafford % (Auto) Eos % (Auto) Baso % (Auto) Absolute Neuts (auto) Absolute Lymphs (auto) Nucleated RBC % Differential Comment Specimen Type ART ART Sample Site R Radial R Radial pH 7.27 L 7.27 L Bicarbonate Actual 25.6 27.4 H POC Total CO2 27 29 Base Excess -1 1 O2 Saturation 90 L 95 O2 % 70 70 ABG pCO2 55.3 H 59.6 H ABG pO2 69 L 88 Ady Test Respiration Rate 16 14 O2 Delivery Device Vent Vent Minute Volume Vent Mode A-C A-C Tidal Volume 500 500 POC PEEP 8 8 Blood Gas Notified Whom ICU MD ICU MD Blood Gas Notified Time 802 956 Sodium Potassium Chloride Carbon Dioxide Anion Gap BUN Creatinine Estim Creat Clear Calc Est GFR (MDRD) Af Amer Est GFR (MDRD) Non-Af BUN/Creatinine Ratio Glucose Calcium Total Bilirubin AST ALT Alkaline Phosphatase Total Protein Albumin Globulin Albumin/Globulin Ratio MRSA (PCR) Negative POC Glucose 09/09/19 09/09/19 09/10/19 13:13 19:50 04:55 WBC 23.3 H RBC 4.35 Hgb 13.2 Hct 40.2 MCV 92.4 MCH 30.3 MCHC 32.8 RDW Std Deviation 47.8 H RDW Coeff of Km 14.0 Plt Count 238 MPV 11.2 Immature Gran % (Auto) 1.600 H Neut % (Auto) 90.4 H Lymph % (Auto) 2.7 L Stafford % (Auto) 4.9 Eos % (Auto) 0.2 Baso % (Auto) 0.2 Absolute Neuts (auto) 21.1 H Absolute Lymphs (auto) 0.62 L Nucleated RBC % 0 Differential Comment SCANNED Specimen Type ART ART Sample Site R Radial L Radial pH 7.20 L 7.30 L Bicarbonate Actual 26.6 H 24.6 POC Total CO2 29 26 Base Excess -1 -2 O2 Saturation 95 99 O2 % 70 60 ABG pCO2 67.4 H* 50.2 H ABG pO2 94 130 H Ayd Test POS Respiration Rate 14 16 O2 Delivery Device Vent Vent Minute Volume 8.00 Vent Mode A-C A-C Tidal Volume 450 500 POC PEEP 8 5 Blood Gas Notified Whom ICU ICU Blood Gas Notified Time 1311 1947 Sodium Potassium Chloride Carbon Dioxide Anion Gap BUN Creatinine Estim Creat Clear Calc Est GFR (MDRD) Af Amer Est GFR (MDRD) Non-Af BUN/Creatinine Ratio Glucose Calcium Total Bilirubin AST ALT Alkaline Phosphatase Total Protein Albumin Globulin Albumin/Globulin Ratio MRSA (PCR) POC Glucose 09/10/19 09/10/19 09/10/19 04:55 05:25 11:23 WBC RBC Hgb Hct MCV MCH MCHC RDW Std Deviation RDW Coeff of Km Plt Count MPV Immature Gran % (Auto) Neut % (Auto) Lymph % (Auto) Stafford % (Auto) Eos % (Auto) Baso % (Auto) Absolute Neuts (auto) Absolute Lymphs (auto) Nucleated RBC % Differential Comment Specimen Type ART Sample Site R Radial pH 7.32 L Bicarbonate Actual 25.5 POC Total CO2 27 Base Excess -1 O2 Saturation 90 L O2 % 35 ABG pCO2 49.3 H ABG pO2 63 L Ady Test POS Respiration Rate 16 O2 Delivery Device Vent Minute Volume 8.00 Vent Mode A-C Tidal Volume 500 POC PEEP 5 Blood Gas Notified Whom RN Blood Gas Notified Time 524 Sodium 137 Potassium 4.0 Chloride 106 Carbon Dioxide 25.0 Anion Gap 6 BUN 26 H Creatinine 1.24 H Estim Creat Clear Calc 48.95 Est GFR (MDRD) Af Amer 60 Est GFR (MDRD) Non-Af 49 L BUN/Creatinine Ratio 21.0 H Glucose 173 H Calcium 7.8 L Total Bilirubin 0.40 AST 38 H ALT 42 Alkaline Phosphatase 89 Total Protein 7.2 Albumin 2.7 L Globulin 4.5 H Albumin/Globulin Ratio 0.6 L MRSA (PCR) POC Glucose 168 H 09/10/19 09/10/19 09/11/19 18:19 23:58 03:45 WBC 14.5 H RBC 3.97 L Hgb 11.8 L Hct 36.7 L MCV 92.4 MCH 29.7 MCHC 32.2 RDW Std Deviation 48.4 H RDW Coeff of Km 14.3 Plt Count 204 MPV 11.4 Immature Gran % (Auto) 1.700 H Neut % (Auto) 85.2 H Lymph % (Auto) 5.1 L Stafford % (Auto) 7.7 Eos % (Auto) 0.1 Baso % (Auto) 0.2 Absolute Neuts (auto) 12.4 H Absolute Lymphs (auto) 0.74 L Nucleated RBC % 0 Differential Comment Specimen Type Sample Site pH Bicarbonate Actual POC Total CO2 Base Excess O2 Saturation O2 % ABG pCO2 ABG pO2 Ady Test Respiration Rate O2 Delivery Device Minute Volume Vent Mode Tidal Volume POC PEEP Blood Gas Notified Whom Blood Gas Notified Time Sodium Potassium Chloride Carbon Dioxide Anion Gap BUN Creatinine Estim Creat Clear Calc Est GFR (MDRD) Af Amer Est GFR (MDRD) Non-Af BUN/Creatinine Ratio Glucose Calcium Total Bilirubin AST ALT Alkaline Phosphatase Total Protein Albumin Globulin Albumin/Globulin Ratio MRSA (PCR) POC Glucose 158 H 155 H 09/11/19 03:45 WBC RBC Hgb Hct MCV MCH MCHC RDW Std Deviation RDW Coeff of Km Plt Count MPV Immature Gran % (Auto) Neut % (Auto) Lymph % (Auto) Stafford % (Auto) Eos % (Auto) Baso % (Auto) Absolute Neuts (auto) Absolute Lymphs (auto) Nucleated RBC % Differential Comment Specimen Type Sample Site pH Bicarbonate Actual POC Total CO2 Base Excess O2 Saturation O2 % ABG pCO2 ABG pO2 Ady Test Respiration Rate O2 Delivery Device Minute Volume Vent Mode Tidal Volume POC PEEP Blood Gas Notified Whom Blood Gas Notified Time Sodium 139 Potassium 4.5 Chloride 108 H Carbon Dioxide 29.0 Anion Gap 2 L BUN 30 H Creatinine 1.02 Estim Creat Clear Calc 59.51 Est GFR (MDRD) Af Amer 75 Est GFR (MDRD) Non-Af 62 BUN/Creatinine Ratio 29.4 H Glucose 174 H Calcium 7.7 L Total Bilirubin AST ALT Alkaline Phosphatase Total Protein Albumin Globulin Albumin/Globulin Ratio MRSA (PCR) POC Glucose Microbiology 09/10/19 03:30 Sputum, Tracheal Aspirate Gram Stain - Final 09/08/19 16:05 Mucosa - Nasopharyngeal Respiratory Panel (PCR) - Final Clinical Impression(s) from Imaging Studies Chest X-Ray 09/08/19 15:56 IMPRESSION: Right lower lung zone atelectasis and/or infiltrate. Electronically Signed: Teodoro Brooks, at 16:30 EST Tel , Service support , Chest CTA 09/08/19 17:51 IMPRESSION: 1. Technically limited examination. 2. No large acute central pulmonary embolism. 3. Unable to evaluate lobar and segmental branches. 4. Recommend ultrasonography of the lower extremity venous system to exclude presence of deep venous thrombosis and complete the risk stratification of the patient at risk for venous thromboembolic disease. 5. Atypical distribution anterior and upper lobe ground glass opacities. This appearance is nonspecific, possibly related to viral pneumonia. 6. Pectus excavatum congenital sternal deformity. 7. Severely elevated BMI. Electronically Signed: Oumar Ozuna, at 19:15 EST Tel , Service support , Chest X-Ray 09/09/19 01:05 IMPRESSION: NG tube and ET tube in place with the ET tube 3.2 cm above the evan. Patchy consolidations in both lungs. Pneumonia suspected Electronically Signed: Perfecto Espinoza MD at 2:57 EST Tel , Service support , Medical Necessity - Tobacco Use Smoking Status: Current every day smoker Tobacco Use: Cigarettes Assessment/Plan All Active Problems Acute respiratory failure with hypoxia (Acute) Pneumonia (Acute) Sepsis (Acute) RECOMMENDATIONS: 1. Continue broad-spectrum antimicrobials, scheduled bronchodilators and IV steroids. 2. Continue patient on current assist control mode settings. Goal to maintain a plateau pressure less than 30. 3. Continue propofol and fentanyl for sedation. 4. Continue tube feeds. 5. Continue Lovenox and Pepcid for prophylaxis. 6. Continue to wean FiO2 to maintain oxygen saturations at or above 90%. 7. Place Nimbex infusion on hold. IMPRESSIONS: 1. Acute combined respiratory failure The patient presented to the hospital in respiratory distress with radiographic evidence of community-acquired pneumonia. Patient subsequently decompensated, despite the use of noninvasive positive pressure ventilatory support and did require intubation. The patient is slowly improving with current supportive measures. We will plan to attempt to discontinue the patient's Nimbex today. She will remain on propofol and fentanyl for sedation. Continue broad-spectrum antimicrobials, bronchodilators and steroids. Continue tube feeds as ordered. 2. Severe sepsis secondary to community-acquired pneumonia Continue current supportive measures as noted above. The patient remains hemodynamically stable off of vasopressor support. 3. Obstructive sleep apnea The patient has an apparent history of obstructive sleep apnea of unknown severity, for which she is reportedly noncompliant with the use of nocturnal Pap therapy. Recommend that upon successful extubation that she then be transitioned to BiPAP nightly while she remains admitted to the hospital. 4. Longstanding tobacco dependency/depression/obesity Complicates care, management, recovery and prognosis. Nicotine replacement therapy can be utilized while the patient is admitted to the hospital. Smoking cessation is strongly advised. TIME: 38 minutes of critical care time, independent of procedures, was spent addressing the patient's acute combined respiratory failure, severe sepsis secondary to community-acquired pneumonia, obstructive sleep apnea, longstanding tobacco dependency, review of all data and collaboration with the care team. ([id number]) Code Visit 9xxxx: [id number] Critical care first hour
--- NOTE | 2019-09-11 07:03 | RAD_ITS ---
STUDY: X-RAY CHEST REASON FOR EXAM: Female, 44 years old. RESPIRATORY DISTRESS TECHNIQUE: Single AP portable view of the chest. COMPARISON: 09/09/2019 FINDINGS: Stable appearance of ET tube and enteric tube. Left PICC with tip in the mid SVC. No pneumothorax. Continued mild patchy airspace disease bilaterally, decreased. Remainder is unchanged RAD/Chest 1 View (Portable) IMPRESSION: ET tube, enteric tube and left PICC as above. Decreased patchy airspace disease bilaterally. Electronically Signed: Vimal Ceballos DO at 8:11 EST Tel , Service support ,
--- NOTE | 2019-09-11 07:25 | PCM.PN.HOSP ---
Patient Problems: Active and Suspected Problems Acute respiratory failure with hypoxia (Acute) Pneumonia (Acute) Sepsis (Acute) Reason for Visit: Septic shock. Acute hypoxic respiratory failure Objective: Patient remains on neuromuscular agents and sedatives. Currently on 30% FiO2. She is off vasopressor. Vitals/I&O's: Vital Signs Temp Pulse Resp BP Pulse Ox 98.8 F 122 H 20 H 131/83 H 98 09/11/19 06:25 09/11/19 06:34 09/11/19 06:34 09/11/19 06:25 09/11/19 06:34 Oxygen Flow Rate (L/min) 6 Oxygen Delivery Method Mechanical Ventilator Weight: 270 lb 11.642 oz Body Mass Index (BMI) 45.1 Intake and Output for Last 24 Hours 09/09/19 09/10/19 09/11/19 23:59 23:59 23:59 Intake Total 2085.27 / 2317.83 3700.86 / 4220.36 1699.96 / 1699.96 Output Total 490 / 620 955 / 1205 575 / 575 Balance 1595.27 / 1697.83 2745.86 / 3015.36 1124.96 / 1124.96 General: Confused, Disoriented, Lethargic HEENT: Atraumatic, PERRLA, EOMI, Normocephalic Oral: - - ET and OG tube Lungs: Rhonchi, Wheezes, - - On vent support 30% FiO2 Cardiovascular: Regular rate, Regular Rhythm, Normal S1, Normal S2, No murmurs Abdomen: Bowel Sounds Present, Soft, Non Tender, Non-Distended Extremities: Edema Skin: No rashes, No breakdown Musculoskeletal: Arthritic Changes Lymphatic: No Cervical, Supraclavicular, or Inguinal Adenopathy Neurological: - - Neuromuscular paralytic agent Microbiology Past 72 Hours 09/10/19 03:30 Sputum, Tracheal Aspirate Gram Stain - Final 09/08/19 16:05 Mucosa - Nasopharyngeal Respiratory Panel (PCR) - Final 09/08/19 21:57 Urine, Random Legionella Antigen - Final 09/08/19 21:57 Urine, Random Streptococcus pneumoniae Antigen (M - Final 09/08/19 16:05 Mucosa - Nasopharyngeal Influenza Types A,B Direct FA (BRANDON) - Final Laboratory Results 09/10/19 11:23: POC Glucose 168 H 09/10/19 18:19: POC Glucose 158 H 09/10/19 23:58: POC Glucose 155 H 09/11/19 03:45: WBC 14.5 H, RBC 3.97 L, Hgb 11.8 L, Hct 36.7 L, MCV 92.4, MCH 29.7, MCHC 32.2, RDW Std Deviation 48.4 H, RDW Coeff of Km 14.3, Plt Count 204, MPV 11.4, Immature Gran % (Auto) 1.700 H, Neut % (Auto) 85.2 H, Lymph % (Auto) 5.1 L, Mcpherson % (Auto) 7.7, Eos % (Auto) 0.1, Baso % (Auto) 0.2, Absolute Neuts (auto) 12.4 H, Absolute Lymphs (auto) 0.74 L, Nucleated RBC % 0 09/11/19 03:45: Sodium 139, Potassium 4.5, Chloride 108 H, Carbon Dioxide 29.0, Anion Gap 2 L, BUN 30 H, Creatinine 1.02, Estim Creat Clear Calc 59.51, Est GFR (MDRD) Af Amer 75, Est GFR (MDRD) Non-Af 62, BUN/Creatinine Ratio 29.4 H, Glucose 174 H, Calcium 7.7 L Current Medications Acetaminophen (Tylenol Liquid) 650 mg GT Q6H PRN PRN PRN Reason: Pain Score 1-10/Temp > 100.7 F Albuterol Sulfate (Ventolin Aerosols) 2.5 mg INHALATION Q2H PRN PRN PRN Reason: SOB/WHEEZING Albuterol/Ipratropium (Duoneb) 3 ml INHALATION Q4H.RT [facility] Last Admin: 09/11/19 06:34 Dose: 3 ml Documented by: Bupropion HCl (Wellbutrin Tablets) 100 mg GT BID [facility] Last Admin: 09/10/19 22:51 Dose: 100 mg Documented by: Chlorhexidine Gluconate () 1 each TOPICAL DAILY [facility] Last Admin: 09/10/19 17:48 Dose: 1 each Documented by: Chlorhexidine Gluconate () 15 ml PO BID [facility] Last Admin: 09/10/19 22:37 Dose: 15 ml Documented by: Dextrose (D50w Syringe) 0 gm IV X1 PRN; Protocol PRN Reason: Hypoglycemia Enoxaparin Sodium (Lovenox) 40 mg SC DAILY [facility] Last Admin: 09/10/19 11:06 Dose: 40 mg Documented by: Famotidine (Pepcid) 20 mg GT BID [facility] Last Admin: 09/10/19 22:38 Dose: 20 mg Documented by: Glucagon () 1 mg IM .X1 PRN PRN Reason: Hypoglycemia Fentanyl () 100 mls @ 15 mls/hr IV UD [facility]; Protocol Last Titration: 09/11/19 07:00 Dose: 150 mcg/hr, 15 mls/hr Documented by: Propofol (Diprivan) 1,000 mg in 100 mls @ 7.224 mls/hr CONT INF .Q12H [facility]; Protocol Last Titration: 09/11/19 07:00 Dose: 20 mcg/kg/min, 14.4 mls/hr Documented by: Piperacillin Sod/Tazobactam (Sod 3.375 gm/ Sodium Chloride) 50 mls @ 12.5 mls/hr IV Q8 [facility] Last Admin: 09/11/19 05:41 Dose: 12.5 mls/hr Documented by: Sodium Chloride () 250 mls @ 15 mls/hr IV .[id number] PRN PRN Reason: Saline Flush Last Infusion: 09/11/19 05:41 Dose: 0 mls/hr Documented by: Enteral Nutritional Formula (Vital Af 1.2 Alexx Liquid) 1,000 mls @ 60 mls/hr GT .[id number] [facility] Last Admin: 09/10/19 18:33 Dose: 60 mls/hr Documented by: Cisatracurium Besylate 100 mg/ (Sodium Chloride) 250 mls @ 36.12 mls/hr IV .[id number] [facility]; Protocol Last Titration: 09/11/19 07:00 Dose: 2 mcg/kg/min, 36.1 mls/hr Documented by: Norepinephrine Bitartrate 8 mg (/ Sodium Chloride) 250 mls @ 9.375 mls/hr CONT INF .[id number] [facility]; Protocol Last Titration: 09/11/19 07:00 Dose: 0 mcg/min, 0 mls/hr Documented by: Insulin Human Lispro (Humalog Kwikpen (Bkc)) 0 unit SC Q6 [facility]; Protocol Last Admin: 09/11/19 06:35 Dose: 1 u Documented by: Labetalol HCl (Trandate) 10 mg IV Q4H PRN PRN PRN Reason: SBP GREATER THAN 180 Methylprednisolone (Solu-Medrol) 40 mg IV Q8 [facility] Last Admin: 09/11/19 06:36 Dose: 40 mg Documented by: Ondansetron HCl (Zofran) 4 mg IV Q8H PRN PRN PRN Reason: NAUSEA/VOMITING Sodium Chloride () 10 - 40 ml IV UD PRN PRN Reason: SALINE FLUSH Last Admin: 09/09/19 21:29 Dose: 10 ml Documented by: STROKE Vital Signs/Narrative: Vital Signs Temp Pulse Resp BP Pulse Ox 09/11/19 06:34 106 H 16 98 09/11/19 06:25 98.8 F 78 16 131/83 H 98 09/11/19 05:26 76 16 97 09/11/19 05:00 99 F 72 16 106/65 97 09/11/19 04:00 99.1 F 72 16 110/69 96 Medical Necessity - Tobacco Use Smoking Status: Current every day smoker Tobacco Use: Cigarettes Assessment/Plan All Active Problems Acute respiratory failure with hypoxia (Acute) Pneumonia (Acute) Sepsis (Acute) 44-year-old female admitted with shortness of breath and fever. In the ER she was found to 75% on room air. O she was put on BiPAP and then she was intubated last night. 1. Acute combined respiratory failure, present on admission: Secondary to community-acquired pneumonia. Patient is on assist control ventilator. I will see the 80s. Cisatracurium was added yesterday afternoon secondary to significantly elevated airway pressure, increased FiO2 requirement, ventilator dyssynchrony. FiO2 improved to 40% after NM paralytic agent. ABG improved to 7.3 on 35% FiO2/500/16/5. 09/11/2028: Remains on vent. Neuromuscular agent tapering down and plan to take it off. 2. Sepsis (fever, T-max 101.8, tachypnea, pulse greater than 90, leukocytosis right lower lobe infiltrate on chest x-ray ) secondary to right lower lobe pneumonia, [id number]: Urinary antigens are negative. Respiratory panel negative. Blood cultures are negative for about 48 hours Lactic acid is negative. On IV pressor, Levophed. Order to fluid started. DC IV fluid Patient still has leukocytosis. 09/11: Leukocytosis improving. Mild decrease in H&H. On IV Zosyn. 2. Questionable underlying COPD- on aerosols and Solu-Medrol. She needs outpatient pulmonary follow-up with PFTs. 3. Obstructive obstructive sleep apnea-noncompliant with CPAP at home. Continue BiPAP while here. 4. Hypertensive urgency-BP up to 200/89 in the emergency room. Most recent blood pressure 101/50. Currently is on sedatives for intubation. 5. Morbid obesity-calorie controlled diet and dietitian evaluation. 6. Nicotine abuse-patch if desired. Smokes 3/4 packs/day since age 11. 7. Depression-Wellbutrin DVT prophylaxis: Lovenox Microbiology Past 72 Hours 09/10/19 03:30 Sputum, Tracheal Aspirate Gram Stain - Final 09/08/19 16:05 Mucosa - Nasopharyngeal Respiratory Panel (PCR) - Final 09/08/19 21:57 Urine, Random Legionella Antigen - Final 09/08/19 21:57 Urine, Random Streptococcus pneumoniae Antigen (M - Final 09/08/19 16:05 Mucosa - Nasopharyngeal Influenza Types A,B Direct FA (BRANDON) - Final Laboratory Results 09/10/19 11:23: POC Glucose 168 H 09/10/19 18:19: POC Glucose 158 H 09/10/19 23:58: POC Glucose 155 H 09/11/19 03:45: WBC 14.5 H, RBC 3.97 L, Hgb 11.8 L, Hct 36.7 L, MCV 92.4, MCH 29.7, MCHC 32.2, RDW Std Deviation 48.4 H, RDW Coeff of Km 14.3, Plt Count 204, MPV 11.4, Immature Gran % (Auto) 1.700 H, Neut % (Auto) 85.2 H, Lymph % (Auto) 5.1 L, Mcpherson % (Auto) 7.7, Eos % (Auto) 0.1, Baso % (Auto) 0.2, Absolute Neuts (auto) 12.4 H, Absolute Lymphs (auto) 0.74 L, Nucleated RBC % 0 09/11/19 03:45: Sodium 139, Potassium 4.5, Chloride 108 H, Carbon Dioxide 29.0, Anion Gap 2 L, BUN 30 H, Creatinine 1.02, Estim Creat Clear Calc 59.51, Est GFR (MDRD) Af Amer 75, Est GFR (MDRD) Non-Af 62, BUN/Creatinine Ratio 29.4 H, Glucose 174 H, Calcium 7.7 L Code Visit Inpatient E&M: 54938 Subs Hosp L3
[2019-09-11] MEDS: CHLORHEXIDINE GLUC 2% CLOTH 1 EACH TOWELETTE TOPICAL (07:52)
[2019-09-11] MEDS: Chlorhexidine 15 ML PO ×2 (09:32→21:39)
[2019-09-11] MEDS: Famotidine 20 MG Tablet GT ×2 (09:34→21:40)
[2019-09-11] MEDS: Enoxaparin 40 MG/0.4 ML Syringe SC (09:34)
[2019-09-11] MEDS: buPROPion 100 MG Tablet GT ×2 (09:34→21:40)
[2019-09-11 11:21] LABS: Bedside Glucose 166 mg/dL (70-110)
[2019-09-11] MEDS: Vital AF 1.2 Cal Liquid 1,000 ML 60 ML GT (11:52)
[2019-09-11] MEDS: Propofol 10MG/Ml 1,000 MG/100 ML Bottle 18.4 MG CONT INF ×2 (11:52→15:52)
[2019-09-11] MEDS: TITRATION PARAMETER CHANGE 1 EACH IV ×2 (12:07→12:28)
[2019-09-11 18:00] LABS: Bedside Glucose 145 mg/dL (70-110)
[2019-09-11] MEDS: fentaNYL drip 100 ML 17.5 MCG IV (18:43)
[2019-09-11] MEDS: Propofol 10MG/Ml 1,000 MG/100 ML Bottle 25.8 MG CONT INF ×2 (19:30→23:15)
[2019-09-11 23:35] LABS: Bedside Glucose 135 mg/dL (70-110)
[2019-09-12] VITALS (35 sets, daily range): BP systolic 98–126; BP diastolic 52–92; PULSE 65–103; RESP 14–24; TEMP 37.4–37.9; O2SAT 94–100
[2019-09-12] MEDS: fentaNYL drip 100 ML 17.5 MCG IV ×5 (00:26→23:20)
[2019-09-12] MEDS: Propofol 10MG/Ml 1,000 MG/100 ML Bottle 25.8 MG CONT INF ×2 (02:30→05:58)
[2019-09-12] MEDS: Ipratropium/Albuterol Sulfate 3 ML AMPUL.NEB INHALATION ×6 (03:32→23:17)
[2019-09-12] MEDS: Vital AF 1.2 Cal Liquid 1,000 ML 60 ML GT (06:04)
[2019-09-12] MEDS: Insulin Lispro 100 UNIT/ML INSULN.PEN SC (06:09)
[2019-09-12 06:15] LABS: Bedside Glucose 154 mg/dL (70-110)
--- NOTE | 2019-09-12 06:48 | PCM.PN.INT ---
Subjective: The patient was seen and examined at the bedside this morning. Events from the last 24 hours have been reviewed. The patient continues to have a low-grade fever but remains hemodynamically stable. FiO2 requirement is stable at 30%. The patient was discontinued from her cis atracurium infusion yesterday. She remains sedated on both propofol and fentanyl. She is tolerating assist control mode of mechanical ventilation without any ventilator dyssynchrony noted this morning. Objective: The patient's most recent lab work, culture data and imaging studies have all been personally reviewed. Lower extremity Dopplers were negative for the presence of a DVT. Respiratory viral panel was negative. Strep and urine Legionella antigens were negative. Blood, urine and sputum cultures have shown no growth to date. General: - - Remains intubated, sedated and mechanically ventilated. No ventilator dyssynchrony. HEENT: Atraumatic, PERRLA, Normocephalic Oral: No Gingival or Mucosal Lesions/ Ulcerations, - - Endotracheal and OG tubes remain in place Neck: Supple, No Nodes, Trachea Midline Lungs: Diminished, - - Mild expiratory wheeze Cardiovascular: Regular rate, Regular Rhythm, Normal S1, Normal S2, No murmurs Abdomen: Bowel Sounds Present, Soft, Non Tender, Obese Extremities: No clubbing, No cyanosis Skin: No breakdown Musculoskeletal: No Tenderness to Palpation of Joints or Extremities, No Muscle Wasting Lymphatic: No Cervical, Supraclavicular, or Inguinal Adenopathy Neurological: - - No focal neurological deficits. Currently sedated with a RASS of -3 Vital Signs Temp Pulse Resp BP Pulse Ox 99.6 F H 73 16 118/62 98 09/12/19 06:00 09/12/19 06:00 09/12/19 06:00 09/12/19 06:00 09/12/19 06:00 Oxygen Flow Rate (L/min) 6 Oxygen Delivery Method Mechanical Ventilator Weight: 271 lb 9.752 oz Body Mass Index (BMI) 45.1 Intake and Output for Last 24 Hours 09/10/19 09/11/19 09/12/19 23:59 23:59 23:59 Intake Total 3700.86 / 4220.36 3977.21 / 4014.06 1086.94 / 1086.94 Output Total 955 / 1205 1500 / 1500 450 / 450 Balance 2745.86 / 3015.36 2477.21 / 2514.06 636.94 / 636.94 Labs (Last 48 Hours) 09/10/19 09/10/19 09/10/19 11:23 18:19 23:58 WBC RBC Hgb Hct MCV MCH MCHC RDW Std Deviation RDW Coeff of Km Plt Count MPV Immature Gran % (Auto) Neut % (Auto) Lymph % (Auto) [place] % (Auto) Eos % (Auto) Baso % (Auto) Absolute Neuts (auto) Absolute Lymphs (auto) Nucleated RBC % Sodium Potassium Chloride Carbon Dioxide Anion Gap BUN Creatinine Estim Creat Clear Calc Est GFR (MDRD) Af Amer Est GFR (MDRD) Non-Af BUN/Creatinine Ratio Glucose Calcium POC Glucose 168 H 158 H 155 H 09/11/19 09/11/19 09/11/19 03:45 03:45 11:10 WBC 14.5 H RBC 3.97 L Hgb 11.8 L Hct 36.7 L MCV 92.4 MCH 29.7 MCHC 32.2 RDW Std Deviation 48.4 H RDW Coeff of Km 14.3 Plt Count 204 MPV 11.4 Immature Gran % (Auto) 1.700 H Neut % (Auto) 85.2 H Lymph % (Auto) 5.1 L [place] % (Auto) 7.7 Eos % (Auto) 0.1 Baso % (Auto) 0.2 Absolute Neuts (auto) 12.4 H Absolute Lymphs (auto) 0.74 L Nucleated RBC % 0 Sodium 139 Potassium 4.5 Chloride 108 H Carbon Dioxide 29.0 Anion Gap 2 L BUN 30 H Creatinine 1.02 Estim Creat Clear Calc 59.51 Est GFR (MDRD) Af Amer 75 Est GFR (MDRD) Non-Af 62 BUN/Creatinine Ratio 29.4 H Glucose 174 H Calcium 7.7 L POC Glucose 166 H 09/11/19 09/11/19 09/12/19 17:53 23:27 06:08 WBC RBC Hgb Hct MCV MCH MCHC RDW Std Deviation RDW Coeff of Km Plt Count MPV Immature Gran % (Auto) Neut % (Auto) Lymph % (Auto) [place] % (Auto) Eos % (Auto) Baso % (Auto) Absolute Neuts (auto) Absolute Lymphs (auto) Nucleated RBC % Sodium Potassium Chloride Carbon Dioxide Anion Gap BUN Creatinine Estim Creat Clear Calc Est GFR (MDRD) Af Amer Est GFR (MDRD) Non-Af BUN/Creatinine Ratio Glucose Calcium POC Glucose 145 H 135 H 154 H Microbiology 09/10/19 03:30 Sputum, Tracheal Aspirate Gram Stain - Final 09/10/19 03:30 Sputum, Tracheal Aspirate Respiratory Culture - Preliminary Appears to be normal respiratory yoselin. Further studies to follow. Medical Necessity - Tobacco Use Smoking Status: Current every day smoker Tobacco Use: Cigarettes Assessment/Plan All Active Problems Acute respiratory failure with hypoxia (Acute) Pneumonia (Acute) Sepsis (Acute) RECOMMENDATIONS: 1. Continue broad-spectrum antimicrobials, scheduled bronchodilators and IV steroids. 2. Continue patient on current assist control mode settings. Goal to maintain a plateau pressure less than 30. 3. Continue propofol and fentanyl for sedation. Wean sedation now to maintain a RASS of -1 to 1. 4. Continue tube feeds. 5. Continue Lovenox and Pepcid for prophylaxis. 6. Continue to wean FiO2 to maintain oxygen saturations at or above 90%. 7. Physical therapy to work with the patient. 8. Plan for paired spontaneous awakening and breathing trials beginning tomorrow morning. IMPRESSIONS: 1. Acute combined respiratory failure The patient presented to the hospital in respiratory distress with radiographic evidence of community-acquired pneumonia. Patient subsequently decompensated, despite the use of noninvasive positive pressure ventilatory support and did require intubation. The patient is slowly improving with current supportive measures. The patient will be continued on her current sedation regimen with goal to maintain a RASS of -1 to 1. Empiric antibiotics will be continued with plans to complete a 7-day treatment course. The patient will remain on bronchodilators and IV steroids. Tube feeds will be continued. Plan for paired spontaneous awakening and breathing trial beginning tomorrow. 2. Severe sepsis secondary to community-acquired pneumonia Continue current supportive measures as noted above. The patient remains hemodynamically stable off of vasopressor support. 3. Obstructive sleep apnea The patient has an apparent history of obstructive sleep apnea of unknown severity, for which she is reportedly noncompliant with the use of nocturnal Pap therapy. Recommend that upon successful extubation that she then be transitioned to BiPAP nightly while she remains admitted to the hospital. 4. Longstanding tobacco dependency/depression/obesity Complicates care, management, recovery and prognosis. Nicotine replacement therapy can be utilized while the patient is admitted to the hospital. Smoking cessation is strongly advised. TIME: 38 minutes of critical care time, independent of procedures, was spent addressing the patient's acute combined respiratory failure, severe sepsis secondary to community-acquired pneumonia, obstructive sleep apnea, longstanding tobacco dependency, review of all data and collaboration with the care team. ([id number]) Code Visit [id number]: [id number] Critical care first hour
--- NOTE | 2019-09-12 08:36 | PCM.PN.HOSP ---
Patient Problems: Active and Suspected Problems Acute respiratory failure with hypoxia (Acute) Pneumonia (Acute) Sepsis (Acute) Reason for Visit: Septic shock. Acute hypoxic respiratory failure on ventilator Objective: Neuromuscular patient is discontinued. Currently on sedatives on ICU protocol of sedatives. On assist control mode of ventilator. On physical exam General: Mildly sedated and on mechanical ventilator. Opens eyes on verbal command. HEENT: Atraumatic, PERRLA, EOMI, Normocephalic Oral: - - ET and OG tube Lungs: mild expiratory wheezes, - - On vent support 30% FiO2 Cardiovascular: Regular rate, Regular Rhythm, Normal S1, Normal S2, No murmurs Abdomen: Bowel Sounds Present, Soft, Non Tender, Non-Distended Extremities: Edema Skin: No rashes, No breakdown Musculoskeletal: Arthritic Changes Lymphatic: No Cervical, Supraclavicular, or Inguinal Adenopathy Neurological: On sedative agent Vitals/I&O's: Vital Signs Temp Pulse Resp BP Pulse Ox 99.6 F H 75 16 121/68 H 95 09/12/19 08:00 09/12/19 08:00 09/12/19 08:00 09/12/19 08:00 09/12/19 08:00 Oxygen Flow Rate (L/min) 6 Oxygen Delivery Method Mechanical Ventilator Weight: 271 lb 9.752 oz Body Mass Index (BMI) 45.1 Intake and Output for Last 24 Hours 09/10/19 09/11/19 09/12/19 23:59 23:59 23:59 Intake Total 3700.86 / 4220.36 3977.21 / 4014.06 1270.92 / 1270.92 Output Total 955 / 1205 1500 / 1500 450 / 450 Balance 2745.86 / 3015.36 2477.21 / 2514.06 820.92 / 820.92 Microbiology Past 72 Hours 09/10/19 03:30 Sputum, Tracheal Aspirate Gram Stain - Final 09/10/19 03:30 Sputum, Tracheal Aspirate Respiratory Culture - Preliminary Appears to be normal respiratory yoselin. Further studies to follow. Laboratory Results 09/11/19 11:10: POC Glucose 166 H 09/11/19 17:53: POC Glucose 145 H 09/11/19 23:27: POC Glucose 135 H 09/12/19 06:08: POC Glucose 154 H Current Medications Acetaminophen (Tylenol Liquid) 650 mg GT Q6H PRN PRN PRN Reason: Pain Score 1-10/Temp > 100.7 F Albuterol Sulfate (Ventolin Aerosols) 2.5 mg INHALATION Q2H PRN PRN PRN Reason: SOB/WHEEZING Albuterol/Ipratropium (Duoneb) 3 ml INHALATION Q4H.RT [facility] Last Admin: 09/12/19 07:28 Dose: 3 ml Documented by: Bupropion HCl (Wellbutrin Tablets) 100 mg GT BID [facility] Last Admin: 09/11/19 21:40 Dose: 100 mg Documented by: Chlorhexidine Gluconate () 1 each TOPICAL DAILY [facility] Last Admin: 09/11/19 07:52 Dose: 1 each Documented by: Chlorhexidine Gluconate () 15 ml PO BID [facility] Last Admin: 09/11/19 21:39 Dose: 15 ml Documented by: Dextrose (D50w Syringe) 0 gm IV X1 PRN; Protocol PRN Reason: Hypoglycemia Enoxaparin Sodium (Lovenox) 40 mg SC DAILY [facility] Last Admin: 09/11/19 09:34 Dose: 40 mg Documented by: Famotidine (Pepcid) 20 mg GT BID [facility] Last Admin: 09/11/19 21:40 Dose: 20 mg Documented by: Glucagon () 1 mg IM .X1 PRN PRN Reason: Hypoglycemia Fentanyl () 100 mls @ 15 mls/hr IV UD [facility]; Protocol Last Titration: 09/12/19 08:00 Dose: 175 mcg/hr, 17.5 mls/hr Documented by: Propofol (Diprivan) 1,000 mg in 100 mls @ 7.392 mls/hr CONT INF .Q12H [facility]; Protocol Last Titration: 09/12/19 08:00 Dose: 30 mcg/kg/min, 22.1 mls/hr Documented by: Piperacillin Sod/Tazobactam (Sod 3.375 gm/ Sodium Chloride) 50 mls @ 12.5 mls/hr IV Q8 [facility] Stop: 09/15/19 22:01 Last Admin: 09/12/19 06:00 Dose: 12.5 mls/hr Documented by: Sodium Chloride () 250 mls @ 15 mls/hr IV .[id number] PRN PRN Reason: Saline Flush Last Infusion: 09/12/19 06:00 Dose: 0 mls/hr Documented by: Enteral Nutritional Formula (Vital Af 1.2 Alexx Liquid) 1,000 mls @ 60 mls/hr GT .[id number] [facility] Last Admin: 09/12/19 06:04 Dose: 60 mls/hr Documented by: Insulin Human Lispro (Humalog Kwikpen (Bkc)) 0 unit SC Q6 [facility]; Protocol Last Admin: 09/12/19 06:09 Dose: 1 u Documented by: Labetalol HCl (Trandate) 10 mg IV Q4H PRN PRN PRN Reason: SBP GREATER THAN 180 Methylprednisolone (Solu-Medrol) 40 mg IV Q8 [facility] Last Admin: 09/12/19 06:05 Dose: 40 mg Documented by: Ondansetron HCl (Zofran) 4 mg IV Q8H PRN PRN PRN Reason: NAUSEA/VOMITING Sodium Chloride () 10 - 40 ml IV UD PRN PRN Reason: SALINE FLUSH Last Admin: 09/09/19 21:29 Dose: 10 ml Documented by: STROKE Vital Signs/Narrative: Vital Signs Temp Pulse Resp BP Pulse Ox 09/12/19 08:00 99.6 F H 75 16 121/68 H 95 09/12/19 07:00 99.7 F H 66 16 109/58 L 98 09/12/19 06:00 99.6 F H 73 16 118/62 98 09/12/19 05:00 99.7 F H 70 16 115/62 98 Medical Necessity - Tobacco Use Smoking Status: Current every day smoker Tobacco Use: Cigarettes Assessment/Plan All Active Problems Acute respiratory failure with hypoxia (Acute) Pneumonia (Acute) Sepsis (Acute) 44-year-old female admitted with shortness of breath and fever. In the ER she was found to 75% on room air. O she was put on BiPAP and then she was intubated last night. 1. Acute combined respiratory failure, present on admission: Secondary to community-acquired pneumonia. Patient is on assist control ventilator. I will see the 80s. Cisatracurium was added yesterday afternoon secondary to significantly elevated airway pressure, increased FiO2 requirement, ventilator dyssynchrony. FiO2 improved to 40% after NM paralytic agent. ABG improved to 7.3 on 35% FiO2/500/16/5. 09/11/2028: Remains on vent. Neuromuscular agent tapering down and plan to take it off. 27: 2. Sepsis (fever, T-max 101.8, tachypnea, pulse greater than 90, leukocytosis right lower lobe infiltrate on chest x-ray ) secondary to right lower lobe pneumonia, [id number]: Urinary antigens are negative. Respiratory panel negative. Blood cultures are negative for about 48 hours Lactic acid is negative. On IV pressor, Levophed. Order to fluid started. DC IV fluid Patient still has leukocytosis. 09/11: Leukocytosis improving. Mild decrease in H&H. On IV Zosyn. 09/12: T-max 100 Fahrenheit. No tachycardia. NM paralytic agent discontinued. Maintaining blood pressure without pressor support. Norepinephrine drip discontinued. We Zosyn. 2. Questionable underlying COPD- on aerosols and Solu-Medrol. She needs outpatient pulmonary follow-up with PFTs. And IV steroid 3. Obstructive obstructive sleep apnea-noncompliant with CPAP at home. Continue BiPAP while here. 4. Hypertensive urgency-BP up to 200/89 in the emergency room. Most recent blood pressure 101/50. Currently is on sedatives for intubation. 5. Morbid obesity-calorie controlled diet and dietitian evaluation. 6. Nicotine abuse-patch if desired. Smokes 3/4 packs/day since age 11. 7. Depression-Wellbutrin DVT prophylaxis: Lovenox Microbiology Past 72 Hours 09/10/19 03:30 Sputum, Tracheal Aspirate Gram Stain - Final 09/10/19 03:30 Sputum, Tracheal Aspirate Respiratory Culture - Preliminary Appears to be normal respiratory yoselin. Further studies to follow. Laboratory Results 09/11/19 11:10: POC Glucose 166 H 09/11/19 17:53: POC Glucose 145 H 09/11/19 23:27: POC Glucose 135 H 09/12/19 06:08: POC Glucose 154 H Code Visit Inpatient E&M: [id number] [place] [id number]
[2019-09-12 09:16] LABS: Absolute Lymphocyte Count 1.67 X10^3/uL (0.83-4.51); Absolute Neutrophil Count 8.5 X10^3/uL (2.0-7.7); Basophil# 0.05 X10^3/uL; Basophil% 0.4 % (0-1); Eosinophils% 1.7 % (0-5); Hemoglobin 11.5 g/dL (12.0-15.0); Lymphocyte # 1.67 X10^3/ul (4.0); Lymphocyte % 13.9 % (19-41); Mean Corp Hgb Conc 31.9 g/dL (32-36); Mean Platelet Vol. 11.1 fl (6.2-12.0); Monocyte% 9.2 % (0-10); NRBC Flagged by Analyzer 0 % (0-5); Neutrophil # 8.46 X10^3/uL (2.7-7.7); Neutrophil % 70.5 % (47-70); POSITIVE MORPHOLOGY YES; Platelet Count 215 K/mm3 (150-450); RBC Distribution Width CV 14.8 % (11.6-14.6); RBC Distribution Width SD 51.1 fl (35.1-43.9); Red Blood Count 3.83 M/mm3 (4.2-5.4)
[2019-09-12 09:25] LABS: Differential Indicated SCAN CRITERIA MET
[2019-09-12 09:28] LABS: Anion Gap 3 (5-15); BUN 38 mg/dL (7-18); BUN/Creat Ratio 39.6 RATIO (10-20); Calcium,Total 7.7 mg/dL (8.5-10.1); Chloride 110 mmol/L (98-107); Creatinine, Serum 0.96 mg/dL (0.55-1.02); EST Glomerular Filtration Rate 66 mL/min (>60); Est Glom Filt Rate - Afr Amer 80 mL/min (>60); Estimated Creatinine Clearance 63.23 ml/min; Glucose 121 mg/dL (74-106); Magnesium 3.2 mg/dL (1.6-2.6); Phosphorus 2.2 mg/dL (2.5-4.9); Potassium 4.2 mmol/L (3.5-5.1); Sodium Level 143 mmol/L (136-145)
[2019-09-12 09:50] LABS: Differential Comment SCANNED
[2019-09-12] MEDS: TITRATION PARAMETER CHANGE 1 EACH IV ×2 (10:04→11:49)
[2019-09-12] MEDS: Propofol 10MG/Ml 1,000 MG/100 ML Bottle 14.8 MG CONT INF (10:09)
[2019-09-12] MEDS: Enoxaparin 40 MG/0.4 ML Syringe SC (10:16)
[2019-09-12] MEDS: Famotidine 20 MG Tablet GT ×2 (10:17→21:39)
[2019-09-12] MEDS: buPROPion 100 MG Tablet GT ×2 (10:17→21:39)
[2019-09-12] MEDS: Chlorhexidine 15 ML PO ×2 (10:25→21:39)
[2019-09-12] MEDS: 0.9% Saline Lock 10 ML Syringe IV (10:26)
[2019-09-12 12:00] LABS: Bedside Glucose 95 mg/dL (70-110)
[2019-09-12] MEDS: Propofol 10MG/Ml 1,000 MG/100 ML Bottle 18.5 MG CONT INF ×2 (15:31→20:00)
[2019-09-12 17:30] LABS: Bedside Glucose 103 mg/dL (70-110)
[2019-09-13] VITALS (37 sets, daily range): BP systolic 112–143; BP diastolic 56–83; PULSE 65–108; RESP 14–20; TEMP 37.6–38.8; O2SAT 77–100
[2019-09-13 00:11] LABS: Bedside Glucose 136 mg/dL (70-110)
[2019-09-13] MEDS: Propofol 10MG/Ml 1,000 MG/100 ML Bottle 18.5 MG CONT INF (00:57)
[2019-09-13] MEDS: Ipratropium/Albuterol Sulfate 3 ML AMPUL.NEB INHALATION ×6 (03:20→23:13)
[2019-09-13 03:34] LABS: Hematocrit 34.4 % (37-47); Hemoglobin 10.9 g/dL (12.0-15.0); Mean Corp Hgb Conc 31.7 g/dL (32-36); Mean Corpuscular Hgb 29.9 pg (27.0-32.0); Mean Corpuscular Volume 94.5 fL (81-99); Mean Platelet Vol. 10.7 fl (6.2-12.0); POSITIVE COUNT YES; POSITIVE MORPHOLOGY YES; Platelet Count 184 K/mm3 (150-450); RBC Distribution Width CV 14.8 % (11.6-14.6); RBC Distribution Width SD 51.8 fl (35.1-43.9); Red Blood Count 3.64 M/mm3 (4.2-5.4); White Blood Count 9.8 K/mm3 (4.4-11.0)
[2019-09-13 03:35] LABS: Differential Indicated MANUAL DIFF
[2019-09-13 03:50] LABS: Anion Gap 3 (5-15); BUN 36 mg/dL (7-18); BUN/Creat Ratio 36.5 RATIO (10-20); Calcium,Total 7.5 mg/dL (8.5-10.1); Chloride 111 mmol/L (98-107); Creatinine, Serum 0.99 mg/dL (0.55-1.02); EST Glomerular Filtration Rate 64 mL/min (>60); Est Glom Filt Rate - Afr Amer 78 mL/min (>60); Estimated Creatinine Clearance 61.31 ml/min; Glucose 155 mg/dL (74-106); Potassium 4.2 mmol/L (3.5-5.1); Sodium Level 145 mmol/L (136-145)
[2019-09-13 03:51] LABS: Eosinophil 1 % (0-5); Lymphocyte 19 % (19-41); Monocyte 6 % (0-10); Neutrophil-Band 3 % (0-5); Neutrophil-Segmented 71 % (47-70); Total Cells Counted 100 (MANUAL DIFF)
[2019-09-13 03:57] LABS: Absolute Lymphocyte Count 1.85 X10^3/uL (0.83-4.51); Absolute Neutrophil Count 7.2 X10^3/uL (2.0-7.7); Lymphocyte # 1.85 X10^3/ul (4.0); Neutrophil # 7.22 X10^3/uL (2.7-7.7)
[2019-09-13 03:58] LABS: Monocyte# 0.59 X10^3/uL; Platelet Estimate ADEQUATE (ADEQ); Red Cell Morphology NORM C+C NORMAL (NORM C&C)
[2019-09-13] MEDS: fentaNYL drip 100 ML 10 MCG IV ×2 (06:12→15:15)
[2019-09-13] MEDS: Propofol 10MG/Ml 1,000 MG/100 ML Bottle 11.1 MG CONT INF (06:19)
--- NOTE | 2019-09-13 06:45 | PN_ITS ---
Subjective: The patient was seen and examined at the bedside this morning. Events from the last 24 hours have been reviewed. The patient continues to have a low-grade fever. The patient did okay with her spontaneous trial this morning for approximately 30 minutes, but then developed a great deal of anxiety, tachypnea and tachycardia. Therefore, her breathing trial was aborted and she was placed back on assist control mode mechanical ventilation. The patient is currently documented to be overall net +10 L for the hospital admission. Objective: The patient's most recent lab work, culture data and imaging studies have all been personally reviewed. Lower extremity Dopplers were negative for the presence of a DVT. Respiratory viral panel was negative. Strep and urine Legionella antigens were negative. Blood, urine and sputum cultures have shown no growth to date. General: - - Remains intubated, sedated and mechanically ventilated. HEENT: Atraumatic, PERRLA, Normocephalic Oral: No Gingival or Mucosal Lesions/ Ulcerations, - - Stable endotracheal and OG tube Neck: Supple, No Nodes, Trachea Midline Lungs: No rhonchi, No wheeze, No rales, Diminished Cardiovascular: Regular rate, Regular Rhythm, Normal S1, Normal S2, No murmurs Abdomen: Bowel Sounds Present, Soft, Non Tender, Obese Extremities: No clubbing, No cyanosis Skin: No breakdown Musculoskeletal: No Tenderness to Palpation of Joints or Extremities, No Muscle Wasting Lymphatic: No Cervical, Supraclavicular, or Inguinal Adenopathy Neurological: - - No focal neurological deficits. Lightly sedated with a RASS of -1 to 0. Vital Signs Temp Pulse Resp BP Pulse Ox 100.3 F H 73 16 112/66 96 09/13/19 05:00 09/13/19 06:00 09/13/19 06:00 09/13/19 06:00 09/13/19 06:00 Oxygen Flow Rate (L/min) 6 Oxygen Delivery Method Mechanical Ventilator Weight: 273 lb 9.498 oz Body Mass Index (BMI) 45.1 Intake and Output for Last 24 Hours 09/11/19 09/12/19 09/13/19 23:59 23:59 23:59 Intake Total 3977.21 / 4014.06 3111.60 / 3580.27 1039.87 / 1039.87 Output Total 1500 / 1500 1525 / 1925 850 / 850 Balance 2477.21 / 2514.06 1586.60 / 1655.27 189.87 / 189.87 Labs (Last 48 Hours) 09/11/19 09/11/19 09/11/19 11:10 17:53 23:27 WBC RBC Hgb Hct MCV MCH MCHC RDW Std Deviation RDW Coeff of Km Plt Count MPV Immature Gran % (Auto) Neut % (Auto) Lymph % (Auto) [place] % (Auto) Eos % (Auto) Baso % (Auto) Absolute Neuts (auto) Absolute Lymphs (auto) Total Counted Neutrophils % (Manual) Band Neutrophils % Lymphocytes % (Manual) Monocytes % (Manual) Eosinophils % (Manual) Nucleated RBC % Differential Comment Diff Path Review Platelet Estimate RBC Morphology Sodium Potassium Chloride Carbon Dioxide Anion Gap BUN Creatinine Estim Creat Clear Calc Est GFR (MDRD) Af Amer Est GFR (MDRD) Non-Af BUN/Creatinine Ratio Glucose Calcium Phosphorus Magnesium POC Glucose 166 H 145 H 135 H 09/12/19 09/12/19 09/12/19 06:08 09:00 09:00 WBC 12.0 H RBC 3.83 L Hgb 11.5 L Hct 36.0 L MCV 94.0 MCH 30.0 MCHC 31.9 L RDW Std Deviation 51.1 H RDW Coeff of Km 14.8 H Plt Count 215 MPV 11.1 Immature Gran % (Auto) 4.300 H Neut % (Auto) 70.5 H Lymph % (Auto) 13.9 L [place] % (Auto) 9.2 Eos % (Auto) 1.7 Baso % (Auto) 0.4 Absolute Neuts (auto) 8.5 H Absolute Lymphs (auto) 1.67 Total Counted Neutrophils % (Manual) Band Neutrophils % Lymphocytes % (Manual) Monocytes % (Manual) Eosinophils % (Manual) Nucleated RBC % 0 Differential Comment SCANNED Diff Path Review Platelet Estimate RBC Morphology Sodium 143 Potassium 4.2 Chloride 110 H Carbon Dioxide 30.0 Anion Gap 3 L BUN 38 H Creatinine 0.96 Estim Creat Clear Calc 63.23 Est GFR (MDRD) Af Amer 80 Est GFR (MDRD) Non-Af 66 BUN/Creatinine Ratio 39.6 H Glucose 121 H Calcium 7.7 L Phosphorus 2.2 L Magnesium 3.2 H POC Glucose 154 H 09/12/19 09/12/19 09/13/19 11:54 17:21 00:04 WBC RBC Hgb Hct MCV MCH MCHC RDW Std Deviation RDW Coeff of Km Plt Count MPV Immature Gran % (Auto) Neut % (Auto) Lymph % (Auto) [place] % (Auto) Eos % (Auto) Baso % (Auto) Absolute Neuts (auto) Absolute Lymphs (auto) Total Counted Neutrophils % (Manual) Band Neutrophils % Lymphocytes % (Manual) Monocytes % (Manual) Eosinophils % (Manual) Nucleated RBC % Differential Comment Diff Path Review Platelet Estimate RBC Morphology Sodium Potassium Chloride Carbon Dioxide Anion Gap BUN Creatinine Estim Creat Clear Calc Est GFR (MDRD) Af Amer Est GFR (MDRD) Non-Af BUN/Creatinine Ratio Glucose Calcium Phosphorus Magnesium POC Glucose 95 103 136 H 09/13/19 09/13/19 03:25 03:25 WBC 9.8 RBC 3.64 L Hgb 10.9 L Hct 34.4 L MCV 94.5 MCH 29.9 MCHC 31.7 L RDW Std Deviation 51.8 H RDW Coeff of Km 14.8 H Plt Count 184 MPV 10.7 Immature Gran % (Auto) Neut % (Auto) Not Reportable Lymph % (Auto) [place] % (Auto) Eos % (Auto) Baso % (Auto) Absolute Neuts (auto) 7.2 Absolute Lymphs (auto) 1.85 Total Counted 100 Neutrophils % (Manual) 71 H Band Neutrophils % 3 Lymphocytes % (Manual) 19 Monocytes % (Manual) 6 Eosinophils % (Manual) 1 Nucleated RBC % Differential Comment Diff Path Review May foll Platelet Estimate ADEQUATE RBC Morphology NORM C+C Sodium 145 Potassium 4.2 Chloride 111 H Carbon Dioxide 31.0 Anion Gap 3 L BUN 36 H Creatinine 0.99 Estim Creat Clear Calc 61.31 Est GFR (MDRD) Af Amer 78 Est GFR (MDRD) Non-Af 64 BUN/Creatinine Ratio 36.5 H Glucose 155 H Calcium 7.5 L Phosphorus Magnesium POC Glucose Microbiology 09/10/19 03:30 Sputum, Tracheal Aspirate Gram Stain - Final 09/10/19 03:30 Sputum, Tracheal Aspirate Respiratory Culture - Final Clinical Impression(s) from Imaging Studies Chest X-Ray 09/08/19 15:56 IMPRESSION: Right lower lung zone atelectasis and/or infiltrate. Electronically Signed: Teodoro Brooks, at 16:30 EST Tel , Service support , Chest CTA 09/08/19 17:51 IMPRESSION: 1. Technically limited examination. 2. No large acute central pulmonary embolism. 3. Unable to evaluate lobar and segmental branches. 4. Recommend ultrasonography of the lower extremity venous system to exclude presence of deep venous thrombosis and complete the risk stratification of the patient at risk for venous thromboembolic disease. 5. Atypical distribution anterior and upper lobe ground glass opacities. This appearance is nonspecific, possibly related to viral pneumonia. 6. Pectus excavatum congenital sternal deformity. 7. Severely elevated BMI. Electronically Signed: Oumar Ozuna, at 19:15 EST Tel , Service support , Chest X-Ray 09/09/19 01:05 IMPRESSION: NG tube and ET tube in place with the ET tube 3.2 cm above the evan. Patchy consolidations in both lungs. Pneumonia suspected Electronically Signed: Perfecto Espinoza MD at 2:57 EST Tel , Service support , Chest X-Ray 09/11/19 07:03 IMPRESSION: ET tube, enteric tube and left PICC as above. Decreased patchy airspace disease bilaterally. Electronically Signed: Vimal Ceballos DO at 8:11 EST Tel , Service support , Medical Necessity - Tobacco Use Smoking Status: Current every day smoker Tobacco Use: Cigarettes Assessment/Plan All Active Problems Acute respiratory failure with hypoxia (Acute) Pneumonia (Acute) Sepsis (Acute) RECOMMENDATIONS: 1. Continue antibiotics with plans to complete a 7-day treatment course. 2. Continue bronchodilators and steroids. 3. Wean from propofol and start Precedex to help facilitate weaning from invasive mechanical ventilatory support. 4. Continue tube feeds. 5. Continue Lovenox and Pepcid for prophylaxis. 6. Continue to wean FiO2 to maintain oxygen saturations at or above 90%. 7. Physical therapy to work with the patient. IMPRESSIONS: 1. Acute combined respiratory failure The patient presented to the hospital in respiratory distress with radiographic evidence of community-acquired pneumonia. Patient subsequently decompensated, despite the use of noninvasive positive pressure ventilatory support and did require intubation. The patient is slowly improving with current supportive measures. The patient will be continued on her current sedation regimen with goal to maintain a RASS of -1 to 1. Empiric antibiotics will be continued with plans to complete a 7-day treatment course. The patient will remain on bronchodilators and IV steroids. Tube feeds will be continued. Plan for paired spontaneous awakening and breathing trial again tomorrow. 2. Severe sepsis secondary to community-acquired pneumonia Continue current supportive measures as noted above. The patient remains hemodynamically stable off of vasopressor support. 3. Obstructive sleep apnea The patient has an apparent history of obstructive sleep apnea of unknown severity, for which she is reportedly noncompliant with the use of nocturnal Pap therapy. Recommend that upon successful extubation that she then be transitioned to BiPAP nightly while she remains admitted to the hospital. 4. Longstanding tobacco dependency/depression/obesity Complicates care, management, recovery and prognosis. Nicotine replacement therapy can be utilized while the patient is admitted to the hospital. Smoking cessation is strongly advised. TIME: 37 minutes of critical care time, independent of procedures, was spent addressing the patient's acute combined respiratory failure, severe sepsis secondary to community-acquired pneumonia, obstructive sleep apnea, longstanding tobacco dependency, review of all data and collaboration with the care team. ([id number]) Code Visit [id number]: [id number] Critical care first hour
--- NOTE | 2019-09-13 07:24 | PCM.PN.HOSP ---
Patient Problems: Active and Suspected Problems Acute respiratory failure with hypoxia (Acute) Pneumonia (Acute) Sepsis (Acute) Reason for Visit: Septic shock. Objective: Patient could not tolerate a spontaneous breathing trial in the morning with anxiety tachypnea and tachycardia. Mild low-grade temperature, 100.3 Fahrenheit.. Vitals/I&O's: Vital Signs Temp Pulse Resp BP Pulse Ox 100.3 F H 83 16 124/70 H 96 09/13/19 05:00 09/13/19 07:00 09/13/19 07:00 09/13/19 07:00 09/13/19 07:00 Oxygen Flow Rate (L/min) 6 Oxygen Delivery Method Mechanical Ventilator Weight: 273 lb 9.498 oz Body Mass Index (BMI) 45.1 Intake and Output for Last 24 Hours 09/11/19 09/12/19 09/13/19 23:59 23:59 23:59 Intake Total 3977.21 / 4014.06 3111.60 / 3580.27 1055.45 / 1055.45 Output Total 1500 / 1500 1525 / 1925 850 / 850 Balance 2477.21 / 2514.06 1586.60 / 1655.27 205.45 / 205.45 General: - - Patient follows simple vocal command, opening closing eyes and moves her extremities. HEENT: Atraumatic, PERRLA, EOMI, Normocephalic Neck: Supple, No JVD, Negative Carotid Bruits Lungs: Diminished, - - On vent support, FiO2 30% Cardiovascular: Regular rate, Regular Rhythm, Normal S1, Normal S2, No murmurs Abdomen: Bowel Sounds Present, Soft, Non Tender, Non-Distended Extremities: Capillary Refill Less than 3 Seconds, Edema Skin: No rashes, No breakdown Musculoskeletal: No Tenderness to Palpation of Joints or Extremities, Arthritic Changes Neurological: Cranial nerves II-XII grossly intact, - - On sedative propofol and fentanyl drip as per ICU protocol Microbiology Past 72 Hours 09/10/19 03:30 Sputum, Tracheal Aspirate Gram Stain - Final 09/10/19 03:30 Sputum, Tracheal Aspirate Respiratory Culture - Final Laboratory Results 09/12/19 09:00: WBC 12.0 H, RBC 3.83 L, Hgb 11.5 L, Hct 36.0 L, MCV 94.0, MCH 30.0, MCHC 31.9 L, RDW Std Deviation 51.1 H, RDW Coeff of Km 14.8 H, Plt Count 215, MPV 11.1, Immature Gran % (Auto) 4.300 H, Neut % (Auto) 70.5 H, Lymph % (Auto) 13.9 L, [place] % (Auto) 9.2, Eos % (Auto) 1.7, Baso % (Auto) 0.4, Absolute Neuts (auto) 8.5 H, Absolute Lymphs (auto) 1.67, Nucleated RBC % 0, Differential Comment SCANNED 09/12/19 09:00: Sodium 143, Potassium 4.2, Chloride 110 H, Carbon Dioxide 30.0, Anion Gap 3 L, BUN 38 H, Creatinine 0.96, Estim Creat Clear Calc 63.23, Est GFR (MDRD) Af Amer 80, Est GFR (MDRD) Non-Af 66, BUN/Creatinine Ratio 39.6 H, Glucose 121 H, Calcium 7.7 L, Phosphorus 2.2 L, Magnesium 3.2 H 09/12/19 11:54: POC Glucose 95 09/12/19 17:21: POC Glucose 103 09/13/19 00:04: POC Glucose 136 H 09/13/19 03:25: WBC 9.8, RBC 3.64 L, Hgb 10.9 L, Hct 34.4 L, MCV 94.5, MCH 29.9, MCHC 31.7 L, RDW Std Deviation 51.8 H, RDW Coeff of Km 14.8 H, Plt Count 184, MPV 10.7, Neut % (Auto) Not Reportable, Absolute Neuts (auto) 7.2, Absolute Lymphs (auto) 1.85, Total Counted 100, Neutrophils % (Manual) 71 H, Band Neutrophils % 3, Lymphocytes % (Manual) 19, Monocytes % (Manual) 6, Eosinophils % (Manual) 1, Diff Path Review November, Platelet Estimate ADEQUATE, RBC Morphology NORM C+C 09/13/19 03:25: Sodium 145, Potassium 4.2, Chloride 111 H, Carbon Dioxide 31.0, Anion Gap 3 L, BUN 36 H, Creatinine 0.99, Estim Creat Clear Calc 61.31, Est GFR (MDRD) Af Amer 78, Est GFR (MDRD) Non-Af 64, BUN/Creatinine Ratio 36.5 H, Glucose 155 H, Calcium 7.5 L Current Medications Acetaminophen (Tylenol Liquid) 650 mg GT Q6H PRN PRN PRN Reason: Pain Score 1-10/Temp > 100.7 F Albuterol Sulfate (Ventolin Aerosols) 2.5 mg INHALATION Q2H PRN PRN PRN Reason: SOB/WHEEZING Albuterol/Ipratropium (Duoneb) 3 ml INHALATION Q4H.RT [facility] Last Admin: 09/13/19 03:20 Dose: 3 ml Documented by: Bupropion HCl (Wellbutrin Tablets) 100 mg GT BID [facility] Last Admin: 09/12/19 21:39 Dose: 100 mg Documented by: Chlorhexidine Gluconate () 1 each TOPICAL DAILY [facility] Last Admin: 09/12/19 17:34 Dose: Not Given Documented by: Chlorhexidine Gluconate () 15 ml PO BID [facility] Last Admin: 09/12/19 21:39 Dose: 15 ml Documented by: Dextrose (D50w Syringe) 0 gm IV X1 PRN; Protocol PRN Reason: Hypoglycemia Enoxaparin Sodium (Lovenox) 40 mg SC DAILY [facility] Last Admin: 09/12/19 10:16 Dose: 40 mg Documented by: Famotidine (Pepcid) 20 mg GT BID [facility] Last Admin: 09/12/19 21:39 Dose: 20 mg Documented by: Glucagon () 1 mg IM .X1 PRN PRN Reason: Hypoglycemia Fentanyl () 100 mls @ 15 mls/hr IV UD [facility]; Protocol Last Titration: 09/13/19 07:00 Dose: 100 mcg/hr, 10 mls/hr Documented by: Propofol (Diprivan) 1,000 mg in 100 mls @ 7.446 mls/hr CONT INF .Q12H [facility]; Protocol Last Titration: 09/13/19 07:00 Dose: 15 mcg/kg/min, 11.2 mls/hr Documented by: Piperacillin Sod/Tazobactam (Sod 3.375 gm/ Sodium Chloride) 50 mls @ 12.5 mls/hr IV Q8 [facility] Stop: 09/15/19 22:01 Last Admin: 09/13/19 06:12 Dose: 12.5 mls/hr Documented by: Sodium Chloride () 250 mls @ 15 mls/hr IV .[id number] PRN PRN Reason: Saline Flush Last Infusion: 09/12/19 21:47 Dose: 0 mls/hr Documented by: Enteral Nutritional Formula (Vital Af 1.2 Alexx Liquid) 1,000 mls @ 60 mls/hr GT .[id number] EZE Last Admin: 09/12/19 22:14 Dose: Not Given Documented by: Dexmedetomidine HCl 400 mcg/ (Sodium Chloride) 100 mls @ 15.513 mls/hr CONT INF .Q6H27M EZE; Protocol Insulin Human Lispro (Humalog Kwikpen (Bkc)) 0 unit SC Q6 EZE; Protocol Last Admin: 09/13/19 06:21 Dose: Not Given Documented by: Labetalol HCl (Trandate) 10 mg IV Q4H PRN PRN PRN Reason: SBP GREATER THAN 180 Methylprednisolone (Solu-Medrol) 40 mg IV Q12 EZE Last Admin: 09/12/19 21:39 Dose: 40 mg Documented by: Ondansetron HCl (Zofran) 4 mg IV Q8H PRN PRN PRN Reason: NAUSEA/VOMITING Senna/Docusate Sodium (Senokot-S, Soledad-Colace) 2 tablet GT BID PRN PRN PRN Reason: Constipation Sodium Chloride () 10 - 40 ml IV UD PRN PRN Reason: SALINE FLUSH Last Admin: 09/12/19 10:26 Dose: 30 ml Documented by: STROKE Vital Signs/Narrative: Vital Signs Temp Pulse Resp BP Pulse Ox 09/13/19 07:00 83 16 124/70 H 96 09/13/19 06:00 73 16 112/66 96 09/13/19 05:48 83 16 95 09/13/19 05:00 100.3 F H 107 H 16 127/81 H 94 09/13/19 04:00 100.3 F H 73 16 119/59 L 94 Medical Necessity - Tobacco Use Smoking Status: Current every day smoker Tobacco Use: Cigarettes Assessment/Plan All Active Problems Acute respiratory failure with hypoxia (Acute) Pneumonia (Acute) Sepsis (Acute) 44-year-old female admitted with shortness of breath and fever. In the ER she was found to 75% on room air. O she was put on BiPAP and then she was intubated last night. 1. Acute combined respiratory failure, present on admission: Secondary to community-acquired pneumonia. Patient is on assist control ventilator. I will see the 80s. Cisatracurium was added yesterday afternoon secondary to significantly elevated airway pressure, increased FiO2 requirement, ventilator dyssynchrony. FiO2 improved to 40% after NM paralytic agent. ABG improved to 7.3 / on 35% FiO2/500/16/5. 09/11/2028: Remains on vent. Neuromuscular agent tapering down and plan to take it off. 09/13: Patient is still on assist control ventilator. Could not tolerate spontaneous breathing trial for long enough. 2. Sepsis (fever, T-max 101.8, tachypnea, pulse greater than 90, leukocytosis right lower lobe infiltrate on chest x-ray ) secondary to right lower lobe pneumonia, [id number]: Urinary antigens are negative. Respiratory panel negative. Blood cultures are negative for about 48 hours Lactic acid is negative. On IV pressor, Levophed. Order to fluid started. DC IV fluid Patient still has leukocytosis. 09/11: Leukocytosis improving. Mild decrease in H&H. On IV Zosyn. 09/12: T-max 100 Fahrenheit. No tachycardia. NM paralytic agent discontinued. Maintaining blood pressure without pressor support. Norepinephrine drip discontinued. We Zosyn. 09/13: On Zosyn. Endotracheal sputum culture shows mixed normal respiratory yoselin. 2. Questionable underlying COPD- on aerosols and Solu-Medrol. She needs outpatient pulmonary follow-up with PFTs. And IV steroid 3. Obstructive obstructive sleep apnea-noncompliant with CPAP at home. Continue BiPAP while here. 4. Hypertensive urgency-BP up to 200/89 in the emergency room. Most recent blood pressure 101/50. Currently is on sedatives for intubation. 5. Morbid obesity-calorie controlled diet and dietitian evaluation. 6. Nicotine abuse-patch if desired. Smokes 3/4 packs/day since age 11. 7. Depression-Wellbutrin DVT prophylaxis: Lovenox Microbiology Past 72 Hours 09/10/19 03:30 Sputum, Tracheal Aspirate Gram Stain - Final 09/10/19 03:30 Sputum, Tracheal Aspirate Respiratory Culture - Final Laboratory Results 09/12/19 09:00: WBC 12.0 H, RBC 3.83 L, Hgb 11.5 L, Hct 36.0 L, MCV 94.0, MCH 30.0, MCHC 31.9 L, RDW Std Deviation 51.1 H, RDW Coeff of Km 14.8 H, Plt Count 215, MPV 11.1, Immature Gran % (Auto) 4.300 H, Neut % (Auto) 70.5 H, Lymph % (Auto) 13.9 L, [place] % (Auto) 9.2, Eos % (Auto) 1.7, Baso % (Auto) 0.4, Absolute Neuts (auto) 8.5 H, Absolute Lymphs (auto) 1.67, Nucleated RBC % 0, Differential Comment SCANNED 09/12/19 09:00: Sodium 143, Potassium 4.2, Chloride 110 H, Carbon Dioxide 30.0, Anion Gap 3 L, BUN 38 H, Creatinine 0.96, Estim Creat Clear Calc 63.23, Est GFR (MDRD) Af Amer 80, Est GFR (MDRD) Non-Af 66, BUN/Creatinine Ratio 39.6 H, Glucose 121 H, Calcium 7.7 L, Phosphorus 2.2 L, Magnesium 3.2 H 09/12/19 11:54: POC Glucose 95 09/12/19 17:21: POC Glucose 103 09/13/19 00:04: POC Glucose 136 H 09/13/19 03:25: WBC 9.8, RBC 3.64 L, Hgb 10.9 L, Hct 34.4 L, MCV 94.5, MCH 29.9, MCHC 31.7 L, RDW Std Deviation 51.8 H, RDW Coeff of Km 14.8 H, Plt Count 184, MPV 10.7, Neut % (Auto) Not Reportable, Absolute Neuts (auto) 7.2, Absolute Lymphs (auto) 1.85, Total Counted 100, Neutrophils % (Manual) 71 H, Band Neutrophils % 3, Lymphocytes % (Manual) 19, Monocytes % (Manual) 6, Eosinophils % (Manual) 1, Diff Path Review November, Platelet Estimate ADEQUATE, RBC Morphology NORM C+C 09/13/19 03:25: Sodium 145, Potassium 4.2, Chloride 111 H, Carbon Dioxide 31.0, Anion Gap 3 L, BUN 36 H, Creatinine 0.99, Estim Creat Clear Calc 61.31, Est GFR (MDRD) Af Amer 78, Est GFR (MDRD) Non-Af 64, BUN/Creatinine Ratio 36.5 H, Glucose 155 H, Calcium 7.5 L Code Visit Inpatient E&M: 88288 Subs Hosp L3
[2019-09-13 09:01] LABS: Bedside Glucose 113 mg/dL (70-110)
[2019-09-13] MEDS: Chlorhexidine 15 ML PO ×2 (10:08→21:46)
[2019-09-13] MEDS: Famotidine 20 MG Tablet GT ×2 (10:09→21:46)
[2019-09-13] MEDS: buPROPion 100 MG Tablet GT ×2 (10:09→21:47)
[2019-09-13] MEDS: Enoxaparin 40 MG/0.4 ML Syringe SC (10:09)
[2019-09-13] MEDS: CHLORHEXIDINE GLUC 2% CLOTH 1 EACH TOWELETTE TOPICAL (10:09)
[2019-09-13] MEDS: 0.9% Saline Lock 10 ML Syringe IV ×2 (10:12→11:41)
[2019-09-13] MEDS: Vital AF 1.2 Cal Liquid 1,000 ML 60 ML GT (10:22)
[2019-09-13 10:38] LABS: Pathologist Review Reviewed
[2019-09-13 11:36] LABS: Bedside Glucose 116 mg/dL (70-110)
--- NOTE | 2019-09-13 11:36 | CASEMGMT ---
RN JESSICA Note: participated in ICU interdisciplinary rounds. Pt remains on vent. Failed breathing trial- for cpap trial today. Transitioned to Presedex and continue Tube feed. PT/OT to work with pt, possible attempt sitting at side of bed today. DC planning deferred today. CM will continue to follow and assist with dc planning. Jennifer BenderN RN ACM
--- NOTE | 2019-09-13 13:50 | NURSING ---
pt w/increasing diff breathing. sxt for sm amt thick. SpO2 to 69%, begin bagging on 100% w/some diff. Dr. Torres in room, pt gradually recovering. SpO2 now to 96%. return to vent. remains w/sats in upper 90s, color pink
[2019-09-13] MEDS: Albuterol 2.5 MG/3 ML VIAL.NEB. INHALATION (14:00)
[2019-09-13] MEDS: Acetaminophen 650 MG/20 ML UDC GT (14:18)
[2019-09-13 18:26] LABS: Bedside Glucose 137 mg/dL (70-110)
[2019-09-13] MEDS: Insulin Lispro 100 UNIT/ML INSULN.PEN SC (23:52)
[2019-09-14] VITALS (36 sets, daily range): BP systolic 106–142; BP diastolic 62–85; PULSE 66–84; RESP 10–26; TEMP 35.8–38.6; O2SAT 94–100
[2019-09-14 00:05] LABS: Bedside Glucose 151 mg/dL (70-110)
[2019-09-14] MEDS: fentaNYL drip 100 ML 10 MCG IV (01:15)
[2019-09-14] MEDS: Ipratropium/Albuterol Sulfate 3 ML AMPUL.NEB INHALATION ×6 (03:04→23:13)
[2019-09-14] MEDS: Acetaminophen 650 MG/20 ML UDC GT (04:22)
[2019-09-14 05:26] LABS: Hematocrit 34.9 % (37-47); Hemoglobin 10.8 g/dL (12.0-15.0); Mean Corp Hgb Conc 30.9 g/dL (32-36); Mean Corpuscular Hgb 29.6 pg (27.0-32.0); Mean Corpuscular Volume 95.6 fL (81-99); POSITIVE COUNT YES; POSITIVE MORPHOLOGY YES; Platelet Count 210 K/mm3 (150-450); RBC Distribution Width CV 14.8 % (11.6-14.6); Red Blood Count 3.65 M/mm3 (4.2-5.4); White Blood Count 13.2 K/mm3 (4.4-11.0)
[2019-09-14 05:27] LABS: Differential Indicated MANUAL DIFF
[2019-09-14 05:41] LABS: Anion Gap 4 (5-15); BUN 32 mg/dL (7-18); BUN/Creat Ratio 34.4 RATIO (10-20); Calcium,Total 7.8 mg/dL (8.5-10.1); Chloride 113 mmol/L (98-107); Creatinine, Serum 0.93 mg/dL (0.55-1.02); EST Glomerular Filtration Rate 69 mL/min (>60); Est Glom Filt Rate - Afr Amer 83 mL/min (>60); Estimated Creatinine Clearance 65.27 ml/min; Glucose 128 mg/dL (74-106); Potassium 4.6 mmol/L (3.5-5.1); Sodium Level 147 mmol/L (136-145)
[2019-09-14 05:43] LABS: Absolute Neutrophil Count 10.7 X10^3/uL (2.0-7.7); Blast 1 % (0-0); Lymphocyte 11 % (19-41); Monocyte 7 % (0-10); Neutrophil # 10.69 X10^3/uL (2.7-7.7); Neutrophil-Band 1 % (0-5); Neutrophil-Segmented 80 % (47-70); Total Cells Counted 100 (MANUAL DIFF)
[2019-09-14 05:44] LABS: Absolute Lymphocyte Count 1.45 X10^3/uL (0.83-4.51); Lymphocyte # 1.45 X10^3/ul (4.0); Monocyte# 0.92 X10^3/uL; Platelet Morphology ADEQ; Reactive Lymphocyte RARE
--- NOTE | 2019-09-14 06:19 | PN_ITS ---
Subjective: The patient was seen and examined at the bedside this morning. Events from the last 24 hours have been reviewed. Although the patient remains febrile, she is hemodynamically stable. She is currently doing well on her spontaneous breathing trial with an FiO2 requirement of 30%. No overnight issues were identified by the nursing staff. No significant secretions have been reported. Objective: The patient's most recent lab work, culture data and imaging studies have all been personally reviewed. Lower extremity Dopplers were negative for the presence of a DVT. Respiratory viral panel was negative. Strep and urine Legionella antigens were negative. Blood, urine and sputum cultures have shown no growth to date. General: - - Remains intubated and mechanically ventilated. Currently doing well on spontaneous breathing trial. HEENT: Atraumatic, PERRLA, Normocephalic Oral: No Gingival or Mucosal Lesions/ Ulcerations, - - Endotracheal and OG tubes remain in place Neck: Supple, No Nodes, Trachea Midline Lungs: No rhonchi, No wheeze, No rales, Diminished Cardiovascular: Regular rate, Regular Rhythm, Normal S1, Normal S2, No murmurs Abdomen: Bowel Sounds Present, Soft, Non Tender, Obese Extremities: No clubbing, No cyanosis, No edema Skin: No breakdown Musculoskeletal: No Tenderness to Palpation of Joints or Extremities, No Muscle Wasting Lymphatic: No Cervical, Supraclavicular, or Inguinal Adenopathy Neurological: Neuro grossly intact, - - The patient is alert and following commands appropriately. Vital Signs Temp Pulse Resp BP Pulse Ox 101.0 F H 75 16 128/73 H 95 09/14/19 06:00 09/14/19 06:00 09/14/19 06:00 09/14/19 06:00 09/14/19 06:00 Oxygen Flow Rate (L/min) 6 Oxygen Delivery Method Mechanical Ventilator Weight: 272 lb 11.389 oz Body Mass Index (BMI) 45.1 Intake and Output for Last 24 Hours 09/12/19 09/13/19 09/14/19 23:59 23:59 23:59 Intake Total 3111.60 / 3580.27 2972.65 / 2998.15 736.01 / 736.01 Output Total 1525 / 1925 2025 / 2025 450 / 450 Balance 1586.60 / 1655.27 947.65 / 973.15 286.01 / 286.01 Labs (Last 48 Hours) 09/12/19 09/12/19 09/12/19 09:00 09:00 11:54 WBC 12.0 H RBC 3.83 L Hgb 11.5 L Hct 36.0 L MCV 94.0 MCH 30.0 MCHC 31.9 L RDW Std Deviation 51.1 H RDW Coeff of Km 14.8 H Plt Count 215 MPV 11.1 Immature Gran % (Auto) 4.300 H Neut % (Auto) 70.5 H Lymph % (Auto) 13.9 L [place] % (Auto) 9.2 Eos % (Auto) 1.7 Baso % (Auto) 0.4 Absolute Neuts (auto) 8.5 H Absolute Lymphs (auto) 1.67 Total Counted Neutrophils % (Manual) Band Neutrophils % Lymphocytes % (Manual) Monocytes % (Manual) Eosinophils % (Manual) Blast Cells % Nucleated RBC % 0 Differential Comment SCANNED Diff Path Review Reactive Lymphocytes Platelet Estimate Plt Morphology Comment RBC Morphology Sodium 143 Potassium 4.2 Chloride 110 H Carbon Dioxide 30.0 Anion Gap 3 L BUN 38 H Creatinine 0.96 Estim Creat Clear Calc 63.23 Est GFR (MDRD) Af Amer 80 Est GFR (MDRD) Non-Af 66 BUN/Creatinine Ratio 39.6 H Glucose 121 H Calcium 7.7 L Phosphorus 2.2 L Magnesium 3.2 H POC Glucose 95 09/12/19 09/13/19 09/13/19 17:21 00:04 03:25 WBC 9.8 RBC 3.64 L Hgb 10.9 L Hct 34.4 L MCV 94.5 MCH 29.9 MCHC 31.7 L RDW Std Deviation 51.8 H RDW Coeff of Km 14.8 H Plt Count 184 MPV 10.7 Immature Gran % (Auto) Neut % (Auto) Not Reportable Lymph % (Auto) [place] % (Auto) Eos % (Auto) Baso % (Auto) Absolute Neuts (auto) 7.2 Absolute Lymphs (auto) 1.85 Total Counted 100 Neutrophils % (Manual) 71 H Band Neutrophils % 3 Lymphocytes % (Manual) 19 Monocytes % (Manual) 6 Eosinophils % (Manual) 1 Blast Cells % Nucleated RBC % Differential Comment Diff Path Review Reviewed Reactive Lymphocytes Platelet Estimate ADEQUATE Plt Morphology Comment RBC Morphology NORM C+C Sodium Potassium Chloride Carbon Dioxide Anion Gap BUN Creatinine Estim Creat Clear Calc Est GFR (MDRD) Af Amer Est GFR (MDRD) Non-Af BUN/Creatinine Ratio Glucose Calcium Phosphorus Magnesium POC Glucose 103 136 H 09/13/19 09/13/19 09/13/19 03:25 06:11 11:29 WBC RBC Hgb Hct MCV MCH MCHC RDW Std Deviation RDW Coeff of Km Plt Count MPV Immature Gran % (Auto) Neut % (Auto) Lymph % (Auto) [place] % (Auto) Eos % (Auto) Baso % (Auto) Absolute Neuts (auto) Absolute Lymphs (auto) Total Counted Neutrophils % (Manual) Band Neutrophils % Lymphocytes % (Manual) Monocytes % (Manual) Eosinophils % (Manual) Blast Cells % Nucleated RBC % Differential Comment Diff Path Review Reactive Lymphocytes Platelet Estimate Plt Morphology Comment RBC Morphology Sodium 145 Potassium 4.2 Chloride 111 H Carbon Dioxide 31.0 Anion Gap 3 L BUN 36 H Creatinine 0.99 Estim Creat Clear Calc 61.31 Est GFR (MDRD) Af Amer 78 Est GFR (MDRD) Non-Af 64 BUN/Creatinine Ratio 36.5 H Glucose 155 H Calcium 7.5 L Phosphorus Magnesium POC Glucose 113 H 116 H 09/13/19 09/13/19 09/14/19 18:14 23:50 05:10 WBC 13.2 H RBC 3.65 L Hgb 10.8 L Hct 34.9 L MCV 95.6 MCH 29.6 MCHC 30.9 L RDW Std Deviation 52.0 H RDW Coeff of Km 14.8 H Plt Count 210 MPV 11.0 Immature Gran % (Auto) Neut % (Auto) Not Reportable Lymph % (Auto) [place] % (Auto) Eos % (Auto) Baso % (Auto) Absolute Neuts (auto) 10.7 H Absolute Lymphs (auto) 1.45 Total Counted 100 Neutrophils % (Manual) 80 H Band Neutrophils % 1 Lymphocytes % (Manual) 11 L Monocytes % (Manual) 7 Eosinophils % (Manual) Blast Cells % 1 H* Nucleated RBC % Differential Comment Diff Path Review May foll Reactive Lymphocytes RARE Platelet Estimate Plt Morphology Comment ADEQ RBC Morphology Sodium Potassium Chloride Carbon Dioxide Anion Gap BUN Creatinine Estim Creat Clear Calc Est GFR (MDRD) Af Amer Est GFR (MDRD) Non-Af BUN/Creatinine Ratio Glucose Calcium Phosphorus Magnesium POC Glucose 137 H 151 H 09/14/19 05:10 WBC RBC Hgb Hct MCV MCH MCHC RDW Std Deviation RDW Coeff of Km Plt Count MPV Immature Gran % (Auto) Neut % (Auto) Lymph % (Auto) [place] % (Auto) Eos % (Auto) Baso % (Auto) Absolute Neuts (auto) Absolute Lymphs (auto) Total Counted Neutrophils % (Manual) Band Neutrophils % Lymphocytes % (Manual) Monocytes % (Manual) Eosinophils % (Manual) Blast Cells % Nucleated RBC % Differential Comment Diff Path Review Reactive Lymphocytes Platelet Estimate Plt Morphology Comment RBC Morphology Sodium 147 H Potassium 4.6 Chloride 113 H Carbon Dioxide 30.0 Anion Gap 4 L BUN 32 H Creatinine 0.93 Estim Creat Clear Calc 65.27 Est GFR (MDRD) Af Amer 83 Est GFR (MDRD) Non-Af 69 BUN/Creatinine Ratio 34.4 H Glucose 128 H Calcium 7.8 L Phosphorus Magnesium POC Glucose Microbiology 09/10/19 03:30 Sputum, Tracheal Aspirate Gram Stain - Final 09/10/19 03:30 Sputum, Tracheal Aspirate Respiratory Culture - Final Clinical Impression(s) from Imaging Studies Chest X-Ray 09/08/19 15:56 IMPRESSION: Right lower lung zone atelectasis and/or infiltrate. Electronically Signed: Teodoro Brooks, at 16:30 EST Tel , Service support , Chest CTA 09/08/19 17:51 IMPRESSION: 1. Technically limited examination. 2. No large acute central pulmonary embolism. 3. Unable to evaluate lobar and segmental branches. 4. Recommend ultrasonography of the lower extremity venous system to exclude presence of deep venous thrombosis and complete the risk stratification of the patient at risk for venous thromboembolic disease. 5. Atypical distribution anterior and upper lobe ground glass opacities. This appearance is nonspecific, possibly related to viral pneumonia. 6. Pectus excavatum congenital sternal deformity. 7. Severely elevated BMI. Electronically Signed: Oumar Ozuna, at 19:15 EST Tel , Service support , Chest X-Ray 09/09/19 01:05 IMPRESSION: NG tube and ET tube in place with the ET tube 3.2 cm above the evan. Patchy consolidations in both lungs. Pneumonia suspected Electronically Signed: Perfecto Espinoza MD at 2:57 EST Tel , Service support , Chest X-Ray 09/11/19 07:03 IMPRESSION: ET tube, enteric tube and left PICC as above. Decreased patchy airspace disease bilaterally. Electronically Signed: Vimal Ceballos DO at 8:11 EST Tel , Service support , Medical Necessity - Tobacco Use Smoking Status: Current every day smoker Tobacco Use: Cigarettes Assessment/Plan All Active Problems Acute respiratory failure with hypoxia (Acute) Pneumonia (Acute) Sepsis (Acute) RECOMMENDATIONS: 1. Proceed with a trial of extubation this morning. 2. Once extubated, wean supplemental oxygen to maintain saturations at or above 90%. 3. Encourage incentive spirometer use and mobilize patient as tolerated. 4. Bedside swallow evaluation to be completed, prior to advancing diet. 5. Continue antibiotics with plans to complete a 7-day treatment course. 6. Continue bronchodilators and steroids. 7. Continue appropriate prophylaxis. IMPRESSIONS: 1. Acute combined respiratory failure Improved. The patient presented to the hospital in respiratory distress with radiographic evidence of community-acquired pneumonia. Patient subsequently decompensated, despite the use of noninvasive positive pressure ventilatory support and did require intubation. The patient is slowly improving with current supportive measures. The patient passed her spontaneous breathing trial this morning. Therefore, we will proceed with a trial of extubation, once extubated, will wean supplemental oxygen to maintain saturations at or above 90%. Bedside swallow evaluation to be completed prior to advancing diet. Encourage incentive spirometer use and mobilize patient as tolerated. Empiric antibiotics will be continued with plans to complete a 7-day treatment course. The patient will remain on bronchodilators and IV steroids. 2. Severe sepsis secondary to community-acquired pneumonia Continue current supportive measures as noted above. The patient remains hemodynamically stable off of vasopressor support. 3. Obstructive sleep apnea The patient has an apparent history of obstructive sleep apnea of unknown severity, for which she is reportedly noncompliant with the use of nocturnal Pap therapy. Recommend that upon successful extubation that she then be transitioned to BiPAP nightly while she remains admitted to the hospital. 4. Longstanding tobacco dependency/depression/obesity Complicates care, management, recovery and prognosis. Nicotine replacement therapy can be utilized while the patient is admitted to the hospital. Smoking cessation is strongly advised. TIME: 38 minutes of critical care time, independent of procedures, was spent addressing the patient's acute combined respiratory failure, severe sepsis secondary to community-acquired pneumonia, obstructive sleep apnea, longstanding tobacco dependency, review of all data and collaboration with the care team. ([id number]) Code Visit 9xxxx: 56006 Critical care first hour
[2019-09-14] MEDS: CHLORHEXIDINE GLUC 2% CLOTH 1 EACH TOWELETTE TOPICAL (07:53)
--- NOTE | 2019-09-14 09:22 | CM.UR ---
Participated in interdisciplinary rounds this am. Patient was extubated this am and is currently on 2 liters per nc. at bedside and participated in interdisciplinary rounds. He also brought in her antidepressant and water pill. He showed them to Dr. Torres who said they can be ordered after the pharmacy verifies them and she passes her swallow eval. Dr. Torres also states patient can have a regular diet if she passes swallow eval. Plan is to stay in ICU overnight then sent to regular floor tomorrow, if continuing to improve. Bella Jones RN, CCM.
[2019-09-14] MEDS: buPROPion (XL) 150 MG TABLET.XL PO (10:40)
[2019-09-14] MEDS: Enoxaparin 40 MG/0.4 ML Syringe SC (10:41)
[2019-09-14] MEDS: Famotidine 20 MG Tablet PO ×2 (10:43→22:59)
--- NOTE | 2019-09-14 11:32 | CM.UR ---
RN Note: Met face to face with patient and her . Discussed that we will see that Therapy thinks and how she progresses however I wanted to talk to her about going to SNF for therapy d/t her being intubated so many days. Explained we begin to lose strength when we are bedbound. Patient is agreeable to SNF placement and would prefer TCU. Explained that we do have to wait until Monday to get authorization but we also will make sure she is stable. In the meantime she may get stronger and we then will consider HHC. Explained even if she goes to SNF she may still need HHC. Verb understanding and agreement. States they do live in an 2 story with steep stairs to 2nd floor. States it would be difficult for her to get up the steps at this time even with husbands help. Patient does verbalize that she is very weak. LVM on TCU referral line alerting them to her possible admission. Bella Jones RN, [facility].
[2019-09-14] MEDS: Acetaminophen 325 MG Tablet 650 MG PO ×2 (16:57→22:59)
[2019-09-14] MEDS: 0.9% Saline Lock 10 ML Syringe IV (23:00)
[2019-09-15] VITALS (24 sets, daily range): BP systolic 111–143; BP diastolic 59–85; PULSE 63–88; RESP 13–20; TEMP 36.6–36.9; O2SAT 94–97
[2019-09-15] MEDS: Ipratropium/Albuterol Sulfate 3 ML AMPUL.NEB INHALATION ×6 (02:43→23:24)
--- NOTE | 2019-09-15 06:23 | PN_ITS ---
Subjective: The patient was seen and examined at the bedside this morning. Events from the last 24 hours have been reviewed. The patient is currently afebrile, hemodynamically stable and maintaining appropriate oxygen saturations on 2 L/min via nasal cannula. The patient has done quite well from a respiratory perspective following extubation yesterday. The patient does still have a residual cough. The patient did attempt to work with physical therapy yesterday, but is profoundly weak. Objective: The patient's most recent lab work, culture data and imaging studies have all been personally reviewed. Lower extremity Dopplers were negative for the presence of a DVT. Respiratory viral panel was negative. Strep and urine Le gionella antigens were negative. Blood, urine and sputum cultures have shown no growth to date. General: Alert, Cooperative, No apparent distress HEENT: Atraumatic, PERRLA, Normocephalic Oral: No Gingival or Mucosal Lesions/ Ulcerations Neck: Supple, No Nodes, Trachea Midline Lungs: No rhonchi, No wheeze, No rales, Diminished, - - Poor patient dependent inspiratory effort Cardiovascular: Regular rate, Regular Rhythm, Normal S1, Normal S2, No murmurs Abdomen: Bowel Sounds Present, Soft, Non Tender, Obese Extremities: No clubbing, No cyanosis Skin: No breakdown Musculoskeletal: No Tenderness to Palpation of Joints or Extremities, No Muscle Wasting Lymphatic: No Cervical, Supraclavicular, or Inguinal Adenopathy Neurological: Cranial nerves II-XII grossly intact, Neuro grossly intact Psych/Mental Status: Flat Affect Vital Signs Temp Pulse Resp BP Pulse Ox 98.5 F 70 16 123/67 H 95 09/15/19 03:00 09/15/19 05:00 09/15/19 05:00 09/15/19 05:00 09/15/19 05:00 Oxygen Flow Rate (L/min) 2 Oxygen Delivery Method Nasal Cannula Weight: 272 lb 11.389 oz Body Mass Index (BMI) 45.1 Intake and Output for Last 24 Hours 09/13/19 09/14/19 09/15/19 23:59 23:59 23:59 Intake Total 2972.65 / 2998.15 1341.84 / 1474.76 132.92 / 132.92 Output Total 2024 1300 / 1450 150 / 150 Balance 947.65 / 973.15 41.84 / 24.76 -17.08 / -17.08 Labs (Last 48 Hours) 09/13/19 09/13/19 09/13/19 03:25 06:11 11:29 WBC RBC Hgb Hct MCV MCH MCHC RDW Std Deviation RDW Coeff of Km Plt Count MPV Neut % (Auto) Absolute Neuts (auto) Absolute Lymphs (auto) Total Counted Neutrophils % (Manual) Band Neutrophils % Lymphocytes % (Manual) Monocytes % (Manual) Blast Cells % Diff Path Review Reviewed Reactive Lymphocytes Plt Morphology Comment Sodium Potassium Chloride Carbon Dioxide Anion Gap BUN Creatinine Estim Creat Clear Calc Est GFR (MDRD) Af Amer Est GFR (MDRD) Non-Af BUN/Creatinine Ratio Glucose Calcium POC Glucose 113 H 116 H 09/13/19 09/13/19 09/14/19 18:14 23:50 05:10 WBC 13.2 H RBC 3.65 L Hgb 10.8 L Hct 34.9 L MCV 95.6 MCH 29.6 MCHC 30.9 L RDW Std Deviation 52.0 H RDW Coeff of Km 14.8 H Plt Count 210 MPV 11.0 Neut % (Auto) Not Reportable Absolute Neuts (auto) 10.7 H Absolute Lymphs (auto) 1.45 Total Counted 100 Neutrophils % (Manual) 80 H Band Neutrophils % 1 Lymphocytes % (Manual) 11 L Monocytes % (Manual) 7 Blast Cells % 1 H* Diff Path Review May foll Reactive Lymphocytes RARE Plt Morphology Comment ADEQ Sodium Potassium Chloride Carbon Dioxide Anion Gap BUN Creatinine Estim Creat Clear Calc Est GFR (MDRD) Af Amer Est GFR (MDRD) Non-Af BUN/Creatinine Ratio Glucose Calcium POC Glucose 137 H 151 H 09/14/19 05:10 WBC RBC Hgb Hct MCV MCH MCHC RDW Std Deviation RDW Coeff of Km Plt Count MPV Neut % (Auto) Absolute Neuts (auto) Absolute Lymphs (auto) Total Counted Neutrophils % (Manual) Band Neutrophils % Lymphocytes % (Manual) Monocytes % (Manual) Blast Cells % Diff Path Review Reactive Lymphocytes Plt Morphology Comment Sodium 147 H Potassium 4.6 Chloride 113 H Carbon Dioxide 30.0 Anion Gap 4 L BUN 32 H Creatinine 0.93 Estim Creat Clear Calc 65.27 Est GFR (MDRD) Af Amer 83 Est GFR (MDRD) Non-Af 69 BUN/Creatinine Ratio 34.4 H Glucose 128 H Calcium 7.8 L POC Glucose Microbiology 09/08/19 16:00 Blood Culture (Wb) - Anticubital Left Blood Culture - Final No growth in 5 days. 09/08/19 16:08 Blood Culture (Wb) #2 - Right Hand Blood Culture - Final No growth in 5 days. Clinical Impression(s) from Imaging Studies Chest X-Ray 09/08/19 15:56 IMPRESSION: Right lower lung zone atelectasis and/or infiltrate. Electronically Signed: Teodoro Brooks, at 16:30 EST Tel , Service support , Chest CTA 09/08/19 17:51 IMPRESSION: 1. Technically limited examination. 2. No large acute central pulmonary embolism. 3. Unable to evaluate lobar and segmental branches. 4. Recommend ultrasonography of the lower extremity venous system to exclude presence of deep venous thrombosis and complete the risk stratification of the patient at risk for venous thromboembolic disease. 5. Atypical distribution anterior and upper lobe ground glass opacities. This appearance is nonspecific, possibly related to viral pneumonia. 6. Pectus excavatum congenital sternal deformity. 7. Severely elevated BMI. Electronically Signed: Oumar Ozuna, at 19:15 EST Tel , Service support , Chest X-Ray 09/09/19 01:05 IMPRESSION: NG tube and ET tube in place with the ET tube 3.2 cm above the evan. Patchy consolidations in both lungs. Pneumonia suspected Electronically Signed: Prefecto Espinoza MD at 2:57 EST Tel , Service support , Chest X-Ray 09/11/19 07:03 IMPRESSION: ET tube, enteric tube and left PICC as above. Decreased patchy airspace disease bilaterally. Electronically Signed: Vimal Ceballos DO at 8:11 EST Tel , Service support , Medical Necessity - Tobacco Use Smoking Status: Current every day smoker Tobacco Use: Cigarettes Assessment/Plan All Active Problems Acute respiratory failure with hypoxia (Acute) Pneumonia (Acute) Sepsis (Acute) RECOMMENDATIONS: 1. Continue to wean supplemental oxygen to maintain saturations at or above 90%. 2. Encourage incentive spirometer use and mobilize patient as tolerated. 3. Continue scheduled bronchodilators and steroids. Will transition the patient to prednisone beginning today. 4. Continue antibiotics with plans to complete a 7-day treatment course. 5. Aggressive physical therapy warranted. 6. Utilize BiPAP therapy with sleeping. 7. The patient is medically stable for transfer out of the intensive care unit. IMPRESSIONS: 1. Acute combined respiratory failure Improved. The patient presented to the hospital in respiratory distress with radiographic evidence of community-acquired pneumonia. The patient subsequently decompensated, despite the use of noninvasive positive pressure ventilatory support and did require intubation. She subsequently improved with invasive mechanical ventilatory support and was able to be extubated on August. The patient is currently doing well from a respiratory perspective. Supplemental oxygen will be weaned to maintain saturations at or above 90%. I would recommend that we continue her on antibiotics with plans to complete a 7-day treatment course. The patient requires aggressive physical therapy at this time. She will remain on scheduled bronchodilators and steroids. Encourage incentive spirometer use and mobilize patient as tolerated. 2. Severe sepsis secondary to community-acquired pneumonia Continue current supportive measures as noted above. The patient remains hemodynamically stable off of vasopressor support. 3. Obstructive sleep apnea The patient has an apparent history of obstructive sleep apnea of unknown severity, for which she is reportedly noncompliant with the use of nocturnal Pap therapy. I would recommend that empiric BiPAP therapy be utilized with naps and nightly, while the patient remains admitted to the hospital. 4. Longstanding tobacco dependency/depression/obesity Complicates care, management, recovery and prognosis. Nicotine replacement therapy can be utilized while the patient is admitted to the hospital. Smoking cessation is strongly advised. This note was generated with Prosonixation software. It may contain incorrect words, spelling, and punctuation that were not noted in checking the note before signing. Code Visit Inpatient E&M: 92821 [facility] Hosp L3
--- NOTE | 2019-09-15 08:20 | PCM.PN.HOSP ---
Patient Problems: Active and Suspected Problems Acute respiratory failure with hypoxia (Acute) Pneumonia (Acute) Sepsis (Acute) Reason for Visit: Patient is awake alert and oriented x3. Has mild bilateral lower extremity weakness. She stated she is having menstrual. No fever or chills. Hemodynamically stable. Patient is getting transfer to PCU Vitals/I&O's: Vital Signs Temp Pulse Resp BP Pulse Ox 97.8 F 75 18 127/66 H 97 09/15/19 08:00 09/15/19 08:00 09/15/19 08:00 09/15/19 08:00 09/15/19 08:00 Oxygen Flow Rate (L/min) 2 Oxygen Delivery Method Room Air Weight: 267 lb 10.259 oz Body Mass Index (BMI) 45.1 Intake and Output for Last 24 Hours 09/13/19 09/14/19 09/15/19 23:59 23:59 23:59 Intake Total 2972.65 / 2998.15 1341.84 / 1474.76 170.00 / 170.00 Output Total 2024 / 2024 1300 / 1450 600 / 600 Balance 947.65 / 973.15 41.84 / 24.76 -430.00 / -430.00 General: Alert, Oriented x3, Cooperative HEENT: Atraumatic, PERRLA, EOMI, Normocephalic Neck: Supple, No JVD, Negative Carotid Bruits Lungs: Clear to auscultation, No rhonchi, No wheeze, No rales, Diminished Cardiovascular: Regular rate, Regular Rhythm, Normal S1, Normal S2, No murmurs Abdomen: Bowel Sounds Present, Soft, Non Tender, Non-Distended, Hypoactive Bowel Sounds, Distended - Mild abdominal gaseous distention, - Extremities: Capillary Refill Less than 3 Seconds, Edema Skin: No rashes, No breakdown Musculoskeletal: No Tenderness to Palpation of Joints or Extremities, Arthritic Changes Neurological: Cranial nerves II-XII grossly intact, Deep Tendon Reflexes 2+/4 and Symmetrical, Neuro grossly intact Psych/Mental Status: Normal Affect, Appropriate Microbiology Past 72 Hours 09/08/19 16:00 Blood Culture (Wb) - Anticubital Left Blood Culture - Final No growth in 5 days. 09/08/19 16:08 Blood Culture (Wb) #2 - Right Hand Blood Culture - Final No growth in 5 days. 09/10/19 03:30 Sputum, Tracheal Aspirate Gram Stain - Final 09/10/19 03:30 Sputum, Tracheal Aspirate Respiratory Culture - Final Current Medications Acetaminophen (Tylenol) 650 mg PO Q6H PRN PRN PRN Reason: Pain Score 1-10/Temp > 100.7 F Last Admin: 09/14/19 22:59 Dose: 650 mg Documented by: Albuterol Sulfate (Ventolin Aerosols) 2.5 mg INHALATION Q2H PRN PRN PRN Reason: SOB/WHEEZING Last Admin: 09/13/19 14:00 Dose: 2.5 mg Documented by: Albuterol/Ipratropium (Duoneb) 3 ml INHALATION Q4H.RT [facility] Last Admin: 09/15/19 02:43 Dose: 3 ml Documented by: Bupropion HCl (Wellbutrin Xl) 150 mg PO DAILY [facility] Last Admin: 09/14/19 10:40 Dose: 150 mg Documented by: Chlorhexidine Gluconate () 1 each TOPICAL DAILY [facility] Last Admin: 09/14/19 07:53 Dose: 1 each Documented by: Dextrose (D50w Syringe) 0 gm IV X1 PRN; Protocol PRN Reason: Hypoglycemia Enoxaparin Sodium (Lovenox) 40 mg SC DAILY [facility] Last Admin: 09/14/19 10:41 Dose: 40 mg Documented by: Famotidine (Pepcid) 20 mg PO BID [facility] Last Admin: 09/14/19 22:59 Dose: 20 mg Documented by: Furosemide (Lasix) 20 mg PO DAILY [facility] Glucagon () 1 mg IM .X1 PRN PRN Reason: Hypoglycemia Piperacillin Sod/Tazobactam (Sod 3.375 gm/ Sodium Chloride) 50 mls @ 12.5 mls/hr IV Q8 [facility] Stop: 09/15/19 22:01 Last Admin: 09/15/19 06:26 Dose: 12.5 mls/hr Documented by: Sodium Chloride () 250 mls @ 15 mls/hr IV .[id number] PRN PRN Reason: Saline Flush Last Infusion: 09/14/19 06:52 Dose: Infused Documented by: Labetalol HCl (Trandate) 10 mg IV Q4H PRN PRN PRN Reason: SBP GREATER THAN 180 Ondansetron HCl (Zofran) 4 mg IV Q8H PRN PRN PRN Reason: NAUSEA/VOMITING Prednisone () 40 mg PO DAILY@0800 E[facility] Senna/Docusate Sodium (Senokot-S, Soledad-Colace) 2 tablet PO BID PRN PRN PRN Reason: Constipation Sodium Chloride () 10 - 40 ml IV UD PRN PRN Reason: SALINE FLUSH Last Admin: 09/14/19 23:00 Dose: 20 ml Documented by: LEVON Vital Signs/Narrative: Vital Signs Temp Pulse Resp BP Pulse Ox 09/15/19 08:00 97.8 F 75 18 127/66 H 97 09/15/19 07:00 75 16 134/77 H 97 09/15/19 06:59 78 09/15/19 06:00 71 16 120/64 96 09/15/19 05:00 70 16 123/67 H 95 Medical Necessity - Tobacco Use Smoking Status: Current every day smoker Tobacco Use: Cigarettes Assessment/Plan All Active Problems Acute respiratory failure with hypoxia (Acute) Pneumonia (Acute) Sepsis (Acute) 44-year-old female admitted with shortness of breath and fever. In the ER she was found to 75% on room air. O she was put on BiPAP and then she was intubated last night. 1. Acute combined respiratory failure, present on admission: Secondary to community-acquired pneumonia. Patient was on ventilator and was on high FiO2 80%. Cisatracurium was added yesterday afternoon secondary to significantly elevated airway pressure, increased FiO2 requirement, ventilator dyssynchrony. FiO2 improved to 40% after NM paralytic agent. ABG improved to 7.3 on 35% FiO2/500/16/5. 09/11/2028: Remains on vent. Neuromuscular agent tapering down and plan to take it off. 09/13: Patient is still on assist control ventilator. Could not tolerate spontaneous breathing trial for long enough. patient was extubated in the morning. 09/14: Patient alert awake oriented x3. Denies headache or sore throat. Is being transferred to PCU. On 2 L of oxygen. Continue bronchopulmonary hygiene; incentive spirometry and pep. PT and OT to continue. 2. Sepsis (fever, T-max 101.8, tachypnea, pulse greater than 90, leukocytosis right lower lobe infiltrate on chest x-ray ) secondary to right lower lobe pneumonia, [id number]: Urinary antigens are negative. Respiratory panel negative. Blood cultures are negative for about 48 hours Lactic acid is negative. On IV pressor, Levophed. Order to fluid started. DC IV fluid Patient still has leukocytosis. 09/11: Leukocytosis improving. Mild decrease in H&H. On IV Zosyn. 09/12: T-max 100 Fahrenheit. No tachycardia. NM paralytic agent discontinued. Maintaining blood pressure without pressor support. Norepinephrine drip discontinued. We Zosyn. 09/13: On Zosyn. Endotracheal sputum culture shows mixed normal respiratory yoselin. 2. Questionable underlying COPD- on aerosols and Solu-Medrol. She needs outpatient pulmonary follow-up with PFTs. And IV steroid 3. Obstructive obstructive sleep apnea-noncompliant with CPAP at home. Continue BiPAP while here. 4. Hypertensive urgency-BP up to 200/89 in the emergency room. Most recent blood pressure 101/50. Currently is on sedatives for intubation. 5. Morbid obesity-calorie controlled diet and dietitian evaluation. 6. Nicotine abuse-patch if desired. Smokes 3/4 packs/day since age 11. 7. Depression-Wellbutrin DVT prophylaxis: Lovenox Patient might need subacute rehab because of prolonged ICU stay and mild bilateral lower extremity weakness. Patient was also on NM paralytic agent. Microbiology Past 72 Hours 09/08/19 16:00 Blood Culture (Wb) - Anticubital Left Blood Culture - Final No growth in 5 days. 09/08/19 16:08 Blood Culture (Wb) #2 - Right Hand Blood Culture - Final No growth in 5 days. 09/10/19 03:30 Sputum, Tracheal Aspirate Gram Stain - Final 09/10/19 03:30 Sputum, Tracheal Aspirate Respiratory Culture - Final Code Visit Inpatient E&M: 55892 Subs Hosp L3
[2019-09-15] MEDS: CHLORHEXIDINE GLUC 2% CLOTH 1 EACH TOWELETTE TOPICAL (09:19)
[2019-09-15] MEDS: predniSONE 20 MG Tablet 40 MG PO (09:19)
[2019-09-15] MEDS: Enoxaparin 40 MG/0.4 ML Syringe SC (09:19)
[2019-09-15] MEDS: Senna/Docusate Sodium 1 Tablet 2 TABLET PO ×2 (09:20→21:19)
[2019-09-15] MEDS: Furosemide 20 MG Tablet PO (09:20)
[2019-09-15] MEDS: buPROPion (XL) 150 MG TABLET.XL PO (09:21)
[2019-09-15] MEDS: Polyethylene Glycol 3350 17 GM PACKET PO (09:21)
[2019-09-15] MEDS: Famotidine 20 MG Tablet PO ×2 (09:22→21:19)
[2019-09-15] MEDS: 0.9% Saline Lock 10 ML Syringe IV (15:23)
[2019-09-15] MEDS: Acetaminophen 325 MG Tablet 650 MG PO (18:07)
[2019-09-16] VITALS (12 sets, daily range): BP systolic 126–145; BP diastolic 59–85; PULSE 68–92; RESP 18–20; TEMP 36.3–37.2; O2SAT 90–96
[2019-09-16] MEDS: Ipratropium/Albuterol Sulfate 3 ML AMPUL.NEB INHALATION ×6 (02:49→19:15)
[2019-09-16] MEDS: 0.9% Saline Lock 10 ML Syringe IV (03:20)
[2019-09-16] MEDS: Acetaminophen 325 MG Tablet 650 MG PO (03:20)
[2019-09-16 06:31] LABS: Hematocrit 38.4 % (37-47); Hemoglobin 12.3 g/dL (12.0-15.0); Mean Corpuscular Hgb 29.9 pg (27.0-32.0); Mean Corpuscular Volume 93.4 fL (81-99); Mean Platelet Vol. 10.5 fl (6.2-12.0); POSITIVE COUNT YES; POSITIVE MORPHOLOGY YES; Platelet Count 226 K/mm3 (150-450); RBC Distribution Width CV 14.4 % (11.6-14.6); RBC Distribution Width SD 49.6 fl (35.1-43.9); Red Blood Count 4.11 M/mm3 (4.2-5.4); White Blood Count 12.5 K/mm3 (4.4-11.0)
[2019-09-16 06:51] LABS: Anion Gap 8 (5-15); BUN 33 mg/dL (7-18); BUN/Creat Ratio 40.2 RATIO (10-20); Calcium,Total 8.4 mg/dL (8.5-10.1); Chloride 109 mmol/L (98-107); Creatinine, Serum 0.82 mg/dL (0.55-1.02); EST Glomerular Filtration Rate 80 mL/min (>60); Est Glom Filt Rate - Afr Amer 96 mL/min (>60); Estimated Creatinine Clearance 74.03 ml/min; Glucose 90 mg/dL (74-106); Potassium 3.7 mmol/L (3.5-5.1); Sodium Level 145 mmol/L (136-145)
[2019-09-16 07:02] LABS: Differential Indicated MANUAL DIFF
[2019-09-16 07:20] LABS: Basophil 1 % (0-1); Eosinophil 2 % (0-5); Lymphocyte 14 % (19-41); Metamyelocyte 3 % (0-1); Monocyte 6 % (0-10); Neutrophil-Band 7 % (0-5); Neutrophil-Segmented 67 % (47-70); Total Cells Counted 100 (MANUAL DIFF)
[2019-09-16 07:22] LABS: Absolute Lymphocyte Count 1.75 X10^3/uL (0.83-4.51); Absolute Neutrophil Count 9.3 X10^3/uL (2.0-7.7); Lymphocyte # 1.75 X10^3/ul (4.0); Neutrophil # 9.25 X10^3/uL (2.7-7.7)
[2019-09-16 07:23] LABS: Platelet Estimate ADEQUATE (ADEQ); Red Cell Morphology NORM C+C NORMAL (NORM C&C)
[2019-09-16] MEDS: predniSONE 20 MG Tablet 40 MG PO (08:19)
[2019-09-16] MEDS: Enoxaparin 40 MG/0.4 ML Syringe SC (08:20)
[2019-09-16] MEDS: Furosemide 20 MG Tablet PO (08:20)
[2019-09-16] MEDS: Famotidine 20 MG Tablet PO ×2 (08:21→21:14)
[2019-09-16] MEDS: buPROPion (XL) 150 MG TABLET.XL PO (08:21)
[2019-09-16] MEDS: Senna/Docusate Sodium 1 Tablet 2 TABLET PO ×2 (08:21→21:13)
--- NOTE | 2019-09-16 10:25 | CASEMGMT ---
DESHAUN spoke with Loly in TCU and she would have a bed for patient. DESHAUN will talk with patient and let her know. Ailyn KAMARA MSW
--- NOTE | 2019-09-16 11:45 | CASEMGMT ---
DESHAUN spoke with patient letting her know TCU will have a bed for her. She confirmed this is what she wants. Plan: [facility] TCU pending insurance approval. Ailyn KAMARA MSW
--- NOTE | 2019-09-16 13:09 | PN_ITS ---
Patient Problems: Active and Suspected Problems Acute respiratory failure with hypoxia (Acute) Pneumonia (Acute) Sepsis (Acute) Subjective: Patient did well overnight. No acute issues were reported. Patient does report approximately 10 feet of ambulation with significant muscle weakness. Patient reported that she did not feel short of breath but did make it that far. Patient does continue to have a residual cough - Physical Exam Vitals/I&O's: Vital Signs Temp Pulse Resp BP Pulse Ox 37.2 C 84 20 H 138/69 H 94 09/16/19 09:15 09/16/19 11:04 09/16/19 11:04 09/16/19 09:15 09/16/19 09:15 Oxygen Flow Rate (L/min) 2 Oxygen Delivery Method Nasal Cannula Weight: 119.1 kg Body Mass Index (BMI) 45.1 Intake and Output for Last 24 Hours 09/14/19 09/15/19 09/16/19 23:59 23:59 23:59 Intake Total 1341.84 / 1474.76 1320.00 / 1720.00 1010 / 1010 Output Total 1300 / 1450 600 / 800 500 / 500 Balance 41.84 / 24.76 720.00 / 920.00 510 / 510 General: Alert, Oriented x3, Cooperative, No apparent distress, - - Morbidly obese HEENT: Atraumatic, PERRLA, EOMI, Normocephalic, - - No scleral icterus or injection noted Oral: Moist Mucosa, No Gingival or Mucosal Lesions/ Ulcerations Neck: Supple, No Nodes, Trachea Midline Lungs: No rhonchi, No rales, Diminished, Wheezes - End exhalation Cardiovascular: Regular rate, Regular Rhythm, Normal S1, Normal S2, No murmurs, No rub noted, No Gallop Abdomen: Bowel Sounds Present, Soft, Non Tender, Non-Distended, Obese Extremities: No clubbing, No cyanosis, Edema - Trace to 1+ lower extremity Skin: No rashes, No breakdown Musculoskeletal: No Tenderness to Palpation of Joints or Extremities Lymphatic: No Cervical, Supraclavicular, or Inguinal Adenopathy Neurological: Cranial nerves II-XII grossly intact, Neuro grossly intact Psych/Mental Status: Alert and oriented to time, place, person, mood and affect Microbiology Past 72 Hours 09/08/19 16:00 Blood Culture (Wb) - Anticubital Left Blood Culture - Final No growth in 5 days. 09/08/19 16:08 Blood Culture (Wb) #2 - Right Hand Blood Culture - Final No growth in 5 days. Laboratory Results 09/16/19 06:18: WBC 12.5 H, RBC 4.11 L, Hgb 12.3, Hct 38.4, MCV 93.4, MCH 29.9, MCHC 32.0, RDW Std Deviation 49.6 H, RDW Coeff of Km 14.4, Plt Count 226, MPV 10.5, Neut % (Auto) Not Reportable, Absolute Neuts (auto) 9.3 H, Absolute Lymphs (auto) 1.75, Total Counted 100, Neutrophils % (Manual) 67, Band Neutrophils % 7 H, Lymphocytes % (Manual) 14 L, Monocytes % (Manual) 6, Eosinophils % (Manual) 2, Basophils % (Manual) 1, Metamyelocytes % 3 H, Diff Path Review November, Platelet Estimate ADEQUATE, RBC Morphology NORM C+C 09/16/19 06:18: Sodium 145, Potassium 3.7, Chloride 109 H, Carbon Dioxide 28.0, Anion Gap 8, BUN 33 H, Creatinine 0.82, Estim Creat Clear Calc 74.03, Est GFR (MDRD) Af Amer 96, Est GFR (MDRD) Non-Af 80, BUN/Creatinine Ratio 40.2 H, Glucose 90, Calcium 8.4 L Current Medications Acetaminophen (Tylenol) 650 mg PO Q6H PRN PRN PRN Reason: Pain Score 1-10/Temp > 100.7 F Last Admin: 09/16/19 03:20 Dose: 650 mg Documented by: Albuterol Sulfate (Ventolin Aerosols) 2.5 mg INHALATION Q2H PRN PRN PRN Reason: SOB/WHEEZING Last Admin: 09/13/19 14:00 Dose: 2.5 mg Documented by: Albuterol/Ipratropium (Duoneb) 3 ml INHALATION Q4H.RT [facility] Last Admin: 09/16/19 11:04 Dose: 3 ml Documented by: Bisacodyl (Dulcolax) 10 mg RECTAL DAILY PRN PRN PRN Reason: Constipation Bupropion HCl (Wellbutrin Xl) 150 mg PO DAILY [facility] Last Admin: 09/16/19 08:21 Dose: 150 mg Documented by: Dextrose (D50w Syringe) 0 gm IV X1 PRN; Protocol PRN Reason: Hypoglycemia Enoxaparin Sodium (Lovenox) 40 mg SC DAILY [facility] Last Admin: 09/16/19 08:20 Dose: 40 mg Documented by: Famotidine (Pepcid) 20 mg PO BID [facility] Last Admin: 09/16/19 08:21 Dose: 20 mg Documented by: Furosemide (Lasix) 20 mg PO DAILY [facility] Last Admin: 09/16/19 08:20 Dose: 20 mg Documented by: Glucagon () 1 mg IM .X1 PRN PRN Reason: Hypoglycemia Sodium Chloride () 250 mls @ 15 mls/hr IV .[id number] PRN PRN Reason: Saline Flush Last Infusion: 09/14/19 06:52 Dose: Infused Documented by: Labetalol HCl (Trandate) 10 mg IV Q4H PRN PRN PRN Reason: SBP GREATER THAN 180 Ondansetron HCl (Zofran) 4 mg IV Q8H PRN PRN PRN Reason: NAUSEA/VOMITING Polyethylene Glycol (Miralax) 17 gm PO DAILY [facility] Last Admin: 09/16/19 08:21 Dose: Not Given Documented by: Prednisone () 40 mg PO DAILY@0800 [facility] Last Admin: 09/16/19 08:19 Dose: 40 mg Documented by: Senna/Docusate Sodium (Senokot-S, Soledad-Colace) 2 tablet PO BID [facility] Last Admin: 09/16/19 08:21 Dose: 2 tablet Documented by: Sodium Chloride () 10 - 40 ml IV UD PRN PRN Reason: SALINE FLUSH Last Admin: 09/16/19 03:20 Dose: 20 ml Documented by: Medical Necessity - Tobacco Use Smoking Status: Current every day smoker Tobacco Use: Cigarettes Assessment/Plan All Active Problems Acute respiratory failure with hypoxia (Acute) Pneumonia (Acute) Sepsis (Acute) RECOMMENDATIONS: 1. Continue to wean supplemental oxygen to maintain saturations at or above 90%. 2. Encourage incentive spirometer use and mobilize patient as tolerated. 3. Continue scheduled bronchodilators. Continue prednisone therapy for now. 4. Continue antibiotics with plans to complete a 7-day treatment course. 5. Aggressive physical therapy warranted. 6. Utilize BiPAP therapy with sleeping. 7. Walking oximetry prior to discharge 8. Outpatient pulmonary/sleep work-up per Dr. Torres following potential TCU stay IMPRESSIONS: 1. Acute combined respiratory failure Patient appears to be improving from a respiratory standpoint. Unfortunately, patient's muscle weakness is limiting capacity at this time. Continue to wean oxygen as tolerated. Patient should complete a 7-day course of antibiotics. Continue bronchodilators and steroids and encourage incentive spirometer 2. Severe sepsis secondary to community-acquired pneumonia Continue current supportive measures as noted above. The patient remains hemodynamically stable off of vasopressor support. 3. Obstructive sleep apnea The patient has an apparent history of obstructive sleep apnea of unknown severity, for which she is reportedly noncompliant with the use of nocturnal Pap therapy. I would recommend that empiric BiPAP therapy be utilized with naps and nightly, while the patient remains admitted to the hospital. A sleep work-up may be pursued in TCU or in the outpatient setting 4. Longstanding tobacco dependency/depression/obesity Complicates care, management, recovery and prognosis. Nicotine replacement therapy can be utilized while the [facility]. Smoking cessation is strongly advised. Code Visit Inpatient E&M: 81190 Subs Hosp L2
--- NOTE | 2019-09-16 16:06 | CHAPLAIN ---
Type of Pastoral Visit ___ Initial Visit _x__ Follow-up Visit ___ On-call Visit ___ General Patient Visit ___ Spiritual Assessment ___ Family Conference ___ Bereavement ___ Rapid Response ___ Code Blue ___ Other (describe below) Pastoral Care Referral From _x__ Patient _x__ Family ___ Nurse ___ Physician ___ [place] ___ Surtass Analyst ___ Other (describe below) Sacrament/Intervention _x__ Active listening ___ Anointing ___ Yazidism ___ Bereavement ___ Communion _x__ Cande exploration ___ _x__ Life review _x__ Prayer ___ Reconciliation ___ Sacrament of Sick _x__ Supportive presence ___ Wedding ___ Other (describe below) Pastoral Comments
--- NOTE | 2019-09-16 16:35 | PCM.PN.HOSP ---
Patient Problems: Active and Suspected Problems Acute respiratory failure with hypoxia (Acute) Pneumonia (Acute) Sepsis (Acute) Reason for Visit: pneumonia Subjective: feeling better overall. still weak. Vitals/I&O's: Vital Signs Temp Pulse Resp BP Pulse Ox 37.2 C 73 20 H 139/72 H 96 09/16/19 15:15 09/16/19 15:30 09/16/19 15:30 09/16/19 15:15 09/16/19 15:15 Oxygen Flow Rate (L/min) 2 Oxygen Delivery Method Nasal Cannula Weight: 119.1 kg Body Mass Index (BMI) 45.1 Intake and Output for Last 24 Hours 09/14/19 09/15/19 09/16/19 23:59 23:59 23:59 Intake Total 1341.84 / 1474.76 1320.00 / 1720.00 1010 / 1010 Output Total 1300 / 1450 600 / 800 500 / 500 Balance 41.84 / 24.76 720.00 / 920.00 510 / 510 General: Alert, No apparent distress HEENT: Atraumatic, Normocephalic Oral: Moist Mucosa, No Gingival or Mucosal Lesions/ Ulcerations Neck: No Nodes, Trachea Midline Lungs: Normal air movement, - - coarse breath sounds bilaterally. Cardiovascular: Regular rate, Regular Rhythm, Normal S1, Normal S2 Abdomen: Bowel Sounds Present, Soft, Non Tender, Non-Distended, No Hepato-splenomegaly Extremities: No edema, No Calf Tenderness Skin: No rashes, No breakdown Microbiology Past 72 Hours 09/08/19 16:00 Blood Culture (Wb) - Anticubital Left Blood Culture - Final No growth in 5 days. 09/08/19 16:08 Blood Culture (Wb) #2 - Right Hand Blood Culture - Final No growth in 5 days. Laboratory Results 09/16/19 06:18: WBC 12.5 H, RBC 4.11 L, Hgb 12.3, Hct 38.4, MCV 93.4, MCH 29.9, MCHC 32.0, RDW Std Deviation 49.6 H, RDW Coeff of Km 14.4, Plt Count 226, MPV 10.5, Neut % (Auto) Not Reportable, Absolute Neuts (auto) 9.3 H, Absolute Lymphs (auto) 1.75, Total Counted 100, Neutrophils % (Manual) 67, Band Neutrophils % 7 H, Lymphocytes % (Manual) 14 L, Monocytes % (Manual) 6, Eosinophils % (Manual) 2, Basophils % (Manual) 1, Metamyelocytes % 3 H, Diff Path Review November, Platelet Estimate ADEQUATE, RBC Morphology NORM C+C 09/16/19 06:18: Sodium 145, Potassium 3.7, Chloride 109 H, Carbon Dioxide 28.0, Anion Gap 8, BUN 33 H, Creatinine 0.82, Estim Creat Clear Calc 74.03, Est GFR (MDRD) Af Amer 96, Est GFR (MDRD) Non-Af 80, BUN/Creatinine Ratio 40.2 H, Glucose 90, Calcium 8.4 L Current Medications Acetaminophen (Tylenol) 650 mg PO Q6H PRN PRN PRN Reason: Pain Score 1-10/Temp > 100.7 F Last Admin: 09/16/19 03:20 Dose: 650 mg Documented by: Albuterol Sulfate (Ventolin Aerosols) 2.5 mg INHALATION Q2H PRN PRN PRN Reason: SOB/WHEEZING Last Admin: 09/13/19 14:00 Dose: 2.5 mg Documented by: Albuterol/Ipratropium (Duoneb) 3 ml INHALATION Q4H.RT [facility] Last Admin: 09/16/19 15:30 Dose: 3 ml Documented by: Bisacodyl (Dulcolax) 10 mg RECTAL DAILY PRN PRN PRN Reason: Constipation Bupropion HCl (Wellbutrin Xl) 150 mg PO DAILY [facility] Last Admin: 09/16/19 08:21 Dose: 150 mg Documented by: Dextrose (D50w Syringe) 0 gm IV X1 PRN; Protocol PRN Reason: Hypoglycemia Enoxaparin Sodium (Lovenox) 40 mg SC DAILY [facility] Last Admin: 09/16/19 08:20 Dose: 40 mg Documented by: Famotidine (Pepcid) 20 mg PO BID [facility] Last Admin: 09/16/19 08:21 Dose: 20 mg Documented by: Furosemide (Lasix) 20 mg PO DAILY [facility] Last Admin: 09/16/19 08:20 Dose: 20 mg Documented by: Glucagon () 1 mg IM .X1 PRN PRN Reason: Hypoglycemia Sodium Chloride () 250 mls @ 15 mls/hr IV .[id number] PRN PRN Reason: Saline Flush Last Infusion: 09/14/19 06:52 Dose: Infused Documented by: Labetalol HCl (Trandate) 10 mg IV Q4H PRN PRN PRN Reason: SBP GREATER THAN 180 Ondansetron HCl (Zofran) 4 mg IV Q8H PRN PRN PRN Reason: NAUSEA/VOMITING Polyethylene Glycol (Miralax) 17 gm PO DAILY [facility] Last Admin: 09/16/19 08:21 Dose: Not Given Documented by: Prednisone () 40 mg PO DAILY@0800 [facility] Last Admin: 09/16/19 08:19 Dose: 40 mg Documented by: Senna/Docusate Sodium (Senokot-S, Soledad-Colace) 2 tablet PO BID [facility] Last Admin: 09/16/19 08:21 Dose: 2 tablet Documented by: Sodium Chloride () 10 - 40 ml IV UD PRN PRN Reason: SALINE FLUSH Last Admin: 09/16/19 03:20 Dose: 20 ml Documented by: STROKE Vital Signs/Narrative: Vital Signs Temp Pulse Resp BP Pulse Ox 09/16/19 15:30 73 20 H 09/16/19 15:15 37.2 C 87 18 139/72 H 96 Medical Necessity - Tobacco Use Smoking Status: Current every day smoker Tobacco Use: Cigarettes Assessment/Plan All Active Problems Acute respiratory failure with hypoxia (Acute) Pneumonia (Acute) Sepsis (Acute) 1. acute hypoxic and hypercapnic respiratory 2/2 pneumonia, SREE, COPD wean oxygen as tolerated 2. suspected gram negative pneumonia completed a 7-day course of pip/tazo on 09/14 3. AECOPD wean steroids (currently on prednisone) BDs follow up w pulm 4. SREE BiPAP while here, but upon DC, will need to follow up with pulm to have a repeat PSG 5. Severe sepsis 2/2 pneumonia HDS 6. Debility: awaiting on insurance authorization for SNF 7. VTE prophylaxis: enoxaparin. Code Visit Inpatient E&M: 37843 Subs Hosp L2
[2019-09-17] VITALS (10 sets, daily range): BP systolic 132–153; BP diastolic 48–91; PULSE 69–100; RESP 18–22; TEMP 36.8–37.1; O2SAT 91–95
[2019-09-17] MEDS: Ipratropium/Albuterol Sulfate 3 ML AMPUL.NEB INHALATION ×3 (03:24→11:18)
[2019-09-17] MEDS: 0.9% Saline Lock 10 ML Syringe IV (05:04)
[2019-09-17] MEDS: Furosemide 20 MG Tablet PO (09:05)
[2019-09-17] MEDS: predniSONE 20 MG Tablet 40 MG PO (09:05)
[2019-09-17] MEDS: Enoxaparin 40 MG/0.4 ML Syringe SC (09:05)
[2019-09-17] MEDS: Famotidine 20 MG Tablet PO (09:06)
[2019-09-17] MEDS: buPROPion (XL) 150 MG TABLET.XL PO (09:07)
[2019-09-17] MEDS: Senna/Docusate Sodium 1 Tablet 2 TABLET PO (09:09)
[2019-09-17 09:54] LABS: Pathologist Review Reviewed
[2019-09-17 10:06] LABS: Pathologist Review Reviewed
--- NOTE | 2019-09-17 10:37 | PN_ITS ---
Patient Problems: Active and Suspected Problems Acute respiratory failure with hypoxia (Acute) Pneumonia (Acute) Sepsis (Acute) Subjective: Patient did well overnight. No acute issues were reported. Patient states her cough is improved compared to previous. Patient is tolerating room air. Patient's blood pressure has been slightly elevated, but that is normal for me. - Physical Exam Vitals/I&O's: Vital Signs Temp Pulse Resp BP Pulse Ox 36.8 C 73 18 132/48 H 93 09/17/19 08:54 09/17/19 08:54 09/17/19 08:56 09/17/19 08:54 09/17/19 08:54 Oxygen Flow Rate (L/min) 2 Oxygen Delivery Method Room Air Weight: 118 kg Body Mass Index (BMI) 45.1 Intake and Output for Last 24 Hours 09/15/19 09/16/19 09/17/19 23:59 23:59 23:59 Intake Total 1320.00 / 1720.00 1210 / 1210 75 / 75 Output Total 600 / 800 500 / 500 Balance 720.00 / 920.00 710 / 710 75 / 75 General: Alert, Oriented x3, Cooperative, No apparent distress, Well developed, Well nourished, - - Morbidly obese. No conversational dyspnea. HEENT: Atraumatic, PERRLA, EOMI, Normocephalic, - - No scleral icterus or injection noted Oral: Moist Mucosa, No Gingival or Mucosal Lesions/ Ulcerations Neck: Supple, No JVD, No Nodes, Trachea Midline Lungs: No rhonchi, No rales, Diminished, Wheezes - At end exhalation only Cardiovascular: Regular rate, Regular Rhythm, Normal S1, Normal S2, No murmurs, No rub noted, No Gallop Abdomen: Bowel Sounds Present, Soft, Non Tender, Non-Distended, Obese Extremities: No clubbing, No cyanosis, Edema - Trace lower extremity Skin: No rashes, No breakdown Musculoskeletal: No Tenderness to Palpation of Joints or Extremities Lymphatic: No Cervical, Supraclavicular, or Inguinal Adenopathy Neurological: Cranial nerves II-XII grossly intact, Neuro grossly intact, Motor Exam 5/5 strength throughout Psych/Mental Status: Alert and oriented to time, place, person, mood and affect Microbiology Past 72 Hours 09/08/19 16:00 Blood Culture (Wb) - Anticubital Left Blood Culture - Final No growth in 5 days. 09/08/19 16:08 Blood Culture (Wb) #2 - Right Hand Blood Culture - Final No growth in 5 days. Laboratory Results 09/14/19 05:10: Diff Path Review Reviewed 09/16/19 06:18: Diff Path Review Reviewed Current Medications Acetaminophen (Tylenol) 650 mg PO Q6H PRN PRN PRN Reason: Pain Score 1-10/Temp > 100.7 F Last Admin: 09/16/19 03:20 Dose: 650 mg Documented by: Albuterol Sulfate (Ventolin Aerosols) 2.5 mg INHALATION Q2H PRN PRN PRN Reason: SOB/WHEEZING Last Admin: 09/13/19 14:00 Dose: 2.5 mg Documented by: Albuterol/Ipratropium (Duoneb) 3 ml INHALATION Q4H.RT [facility] Last Admin: 09/17/19 07:18 Dose: 3 ml Documented by: Bisacodyl (Dulcolax) 10 mg RECTAL DAILY PRN PRN PRN Reason: Constipation Bupropion HCl (Wellbutrin Xl) 150 mg PO DAILY [facility] Last Admin: 09/17/19 09:07 Dose: 150 mg Documented by: Dextrose (D50w Syringe) 0 gm IV X1 PRN; Protocol PRN Reason: Hypoglycemia Enoxaparin Sodium (Lovenox) 40 mg SC DAILY [facility] Last Admin: 09/17/19 09:05 Dose: 40 mg Documented by: Famotidine (Pepcid) 20 mg PO BID [facility] Last Admin: 09/17/19 09:06 Dose: 20 mg Documented by: Furosemide (Lasix) 20 mg PO DAILY [facility] Last Admin: 09/17/19 09:05 Dose: 20 mg Documented by: Glucagon () 1 mg IM .X1 PRN PRN Reason: Hypoglycemia Sodium Chloride () 250 mls @ 15 mls/hr IV .[id number] PRN PRN Reason: Saline Flush Last Infusion: 09/14/19 06:52 Dose: Infused Documented by: Labetalol HCl (Trandate) 10 mg IV Q4H PRN PRN PRN Reason: SBP GREATER THAN 180 Ondansetron HCl (Zofran) 4 mg IV Q8H PRN PRN PRN Reason: NAUSEA/VOMITING Polyethylene Glycol (Miralax) 17 gm PO DAILY [facility] Last Admin: 09/17/19 09:06 Dose: Not Given Documented by: Prednisone () 40 mg PO DAILY@0800 [facility] Last Admin: 09/17/19 09:05 Dose: 40 mg Documented by: Senna/Docusate Sodium (Senokot-S, Soledad-Colace) 2 tablet PO BID [facility] Last Admin: 09/17/19 09:09 Dose: 2 tablet Documented by: Sodium Chloride () 10 - 40 ml IV UD PRN PRN Reason: SALINE FLUSH Last Admin: 09/17/19 05:04 Dose: 20 ml Documented by: Medical Necessity - Tobacco Use Smoking Status: Current every day smoker Tobacco Use: Cigarettes Assessment/Plan All Active Problems Acute respiratory failure with hypoxia (Acute) Pneumonia (Acute) Sepsis (Acute) RECOMMENDATIONS: 1. Continue to wean supplemental oxygen to maintain saturations at or above 90%. 2. Encourage incentive spirometer use and mobilize patient as tolerated. 3. Continue scheduled bronchodilators. Wean prednisone over the next 12 to 14 days 4. Completed antibiotic course 5. Aggressive physical therapy warranted. 6. Utilize BiPAP therapy with sleeping. 7. Walking oximetry prior to discharge 8. Outpatient pulmonary/sleep work-up per Dr. Torres following potential TCU stay IMPRESSIONS: 1. Acute combined respiratory failure Patient appears to be improving from a respiratory standpoint. Unfortunately, patient's muscle weakness is limiting capacity at this time. Continue to wean oxygen as tolerated. Patient should complete a 7-day course of antibiotics. Continue bronchodilators and steroids and encourage incentive spirometer. Room air walking oximetry ordered. Wean steroids over the next 12 to 14 days. 2. Severe sepsis secondary to community-acquired pneumonia Continue current supportive measures as noted above. The patient remains hemodynamically stable off of vasopressor support. 3. Obstructive sleep apnea The patient has an apparent history of obstructive sleep apnea of unknown severity, for which she is reportedly noncompliant with the use of nocturnal Pap therapy. I would recommend that empiric BiPAP therapy be utilized with naps and nightly, while the patient remains admitted to the hospital. A sleep work-up may be pursued in TCU or in the outpatient setting 4. Longstanding tobacco dependency/depression/obesity Complicates care, management, recovery and prognosis. Nicotine replacement therapy can be utilized while the patient is admitted to the hospital. Smoking cessation is strongly advised. Code Visit Inpatient E&M: 25303 Subs Hosp L2
--- NOTE | 2019-09-17 12:44 | PCM.TXEXTCAR ---
- Diet 09/14/19 12:25 Diet: Cardiac: Calorie-Controlled Is pt able to select menu?: Yes How many daily calories?: 1800 calorie - Routine Orders/Code Status O2 Frequency: PRN Keep PO Greater than or Equal to (%): 92 - Therapies Physical Therapy: Eval and Treat Occupational Therapy: Eval and Treat - Allergies/Procedures Done in Hospital Allergies/Adverse Reactions: Allergies Nvwjkyp-Rrk-Wyg Reductase Inhibitor Allergy (Verified 09/08/19 15:56) Swelling - Type of Care/Length of Stay Estimated LOS: Convalescent Care Less Than 30 days Type of Care Needed: Skilled Rehab Potential: Good Prognosis: Good - Additional Orders/Day of Discharge Additional Orders: BiPAP while sleeping Day of Discharge: 09/17/19 - Dietary and Speech Recommendations Dietitian Recommendations/Changes: Continue 1800 calorie/Cardiac diet. - Follow Up Care Primary Care Physician: Sandy Lucio DO [NON-STAFF] - Within 2 Weeks Please Follow Up With: HAWA WHALEN Please Follow Up With: Maxi Torres DO When: 2-4 weeks
--- NOTE | 2019-09-17 12:48 | DS.PCM_ITS ---
Discharge Date and Diagnosis - Problem List Patient Problems: Active and Suspected Problems Acute respiratory failure with hypoxia (Acute) Pneumonia (Acute) Sepsis (Acute) Date of Admission: 09/08/19 Date of Discharge: 09/17/19 - Primary Discharge Diagnosis Active and Suspected Problems 1. acute hypoxic and hypercapnic respiratory * 2/2 pneumonia, SREE, COPD * wean oxygen as tolerated 2. suspected gram negative pneumonia * completed a 7-day course of pip/tazo on 09/14 3. AECOPD * wean steroids (currently on prednisone) * BDs * follow up w pulm as outpt * BiPAP QHS 4. SREE * BiPAP while here, but upon DC, will need to follow up with pulm to have a repeat PSG 5. Severe sepsis * 2/2 pneumonia * HDS 6. Debility: to TCU - Secondary Discharge Diagnosis Chronic Problems SREE (obstructive sleep apnea) (Chronic) Morbid obesity (Chronic) HTN (hypertension) (Chronic) Hospital Course and Treatment Imaging Results: Clinical Impression(s) from Imaging Studies Chest X-Ray 09/08/19 15:56 IMPRESSION: Right lower lung zone atelectasis and/or infiltrate. Electronically Signed: Teodoro Brooks, at 16:30 EST Tel , Service support , Chest CTA 09/08/19 17:51 IMPRESSION: 1. Technically limited examination. 2. No large acute central pulmonary embolism. 3. Unable to evaluate lobar and segmental branches. 4. Recommend ultrasonography of the lower extremity venous system to exclude presence of deep venous thrombosis and complete the risk stratification of the patient at risk for venous thromboembolic disease. 5. Atypical distribution anterior and upper lobe ground glass opacities. This appearance is nonspecific, possibly related to viral pneumonia. 6. Pectus excavatum congenital sternal deformity. 7. Severely elevated BMI. Electronically Signed: Oumar Ozuna, at 19:15 EST Tel , Service support , Chest X-Ray 09/09/19 01:05 IMPRESSION: NG tube and ET tube in place with the ET tube 3.2 cm above the evan. Patchy consolidations in both lungs. Pneumonia suspected Electronically Signed: Perfecto Espinoza MD at 2:57 EST Tel , Service support , Chest X-Ray 09/11/19 07:03 IMPRESSION: ET tube, enteric tube and left PICC as above. Decreased patchy airspace disease bilaterally. Electronically Signed: Vimal Ceballos DO at 8:11 EST Tel , Service support , Brian pulmonology Summary of Care Provided: The patient is a 44 year old F presents with shortness of breath. Patient was found to have a right lower lobe pneumonia. Patient was 75% on room air. Placed on BiPAP. Completed a 7-day course of Pipracil and/tazobactam on 14 September. Patient treated also with steroid taper for acute exacerbation of COPD and continue with bronchodilators. Patient has sleep apnea and been noncompliant with CPAP. Patient will be on BiPAP going to the transitional care unit at night. Patient will follow-up with pulmonology to have repeat polysomnogram as outpatient. Overall the patient is better and given her debility, patient be going to the transitional care unit in stable condition. [] Patient Problems: Active and Suspected Problems Acute respiratory failure with hypoxia (Acute) Pneumonia (Acute) Sepsis (Acute) - Physical Exam Vitals/I&O's: Vital Signs Temp Pulse Resp BP Pulse Ox 36.8 C 82 22 H 132/48 H 92 09/17/19 08:54 09/17/19 11:18 09/17/19 11:18 09/17/19 08:54 09/17/19 11:18 Oxygen Flow Rate (L/min) 2 Oxygen Delivery Method Room Air Weight: 118 kg Body Mass Index (BMI) 45.1 Intake and Output for Last 24 Hours 09/15/19 09/16/19 09/17/19 23:59 23:59 23:59 Intake Total 1320.00 / 1720.00 1210 / 1210 75 / 75 Output Total 600 / 800 500 / 500 Balance 720.00 / 920.00 710 / 710 75 / 75 General: Alert, Cooperative, No apparent distress HEENT: Atraumatic, Normocephalic Lungs: Clear to auscultation, Normal air movement, No rhonchi, No wheeze Cardiovascular: Regular rate, Regular Rhythm, Normal S1, Normal S2, No murmurs Abdomen: Bowel Sounds Present, Soft, Non Tender, Non-Distended Extremities: No edema, No Calf Tenderness Laboratory Results 09/14/19 05:10: Diff Path Review Reviewed 09/16/19 06:18: Diff Path Review Reviewed Current Medications Acetaminophen (Tylenol) 650 mg PO Q6H PRN PRN PRN Reason: Pain Score 1-10/Temp > 100.7 F Last Admin: 09/16/19 03:20 Dose: 650 mg Documented by: Albuterol Sulfate (Ventolin Aerosols) 2.5 mg INHALATION Q2H PRN PRN PRN Reason: SOB/WHEEZING Last Admin: 09/13/19 14:00 Dose: 2.5 mg Documented by: Albuterol/Ipratropium (Duoneb) 3 ml INHALATION Q4H.RT [facility] Last Admin: 09/17/19 11:18 Dose: 3 ml Documented by: Bisacodyl (Dulcolax) 10 mg RECTAL DAILY PRN PRN PRN Reason: Constipation Bupropion HCl (Wellbutrin Xl) 150 mg PO DAILY [facility] Last Admin: 09/17/19 09:07 Dose: 150 mg Documented by: Dextrose (D50w Syringe) 0 gm IV X1 PRN; Protocol PRN Reason: Hypoglycemia Enoxaparin Sodium (Lovenox) 40 mg SC DAILY [facility] Last Admin: 09/17/19 09:05 Dose: 40 mg Documented by: Famotidine (Pepcid) 20 mg PO BID [facility] Last Admin: 09/17/19 09:06 Dose: 20 mg Documented by: Furosemide (Lasix) 20 mg PO DAILY [facility] Last Admin: 09/17/19 09:05 Dose: 20 mg Documented by: Glucagon () 1 mg IM .X1 PRN PRN Reason: Hypoglycemia Sodium Chloride () 250 mls @ 15 mls/hr IV .[id number] PRN PRN Reason: Saline Flush Last Infusion: 09/14/19 06:52 Dose: Infused Documented by: Labetalol HCl (Trandate) 10 mg IV Q4H PRN PRN PRN Reason: SBP GREATER THAN 180 Ondansetron HCl (Zofran) 4 mg IV Q8H PRN PRN PRN Reason: NAUSEA/VOMITING Polyethylene Glycol (Miralax) 17 gm PO DAILY [facility] Last Admin: 09/17/19 09:06 Dose: Not Given Documented by: Prednisone () 40 mg PO DAILY@0800 [facility] Last Admin: 09/17/19 09:05 Dose: 40 mg Documented by: Senna/Docusate Sodium (Senokot-S, Soledad-Colace) 2 tablet PO BID [facility] Last Admin: 09/17/19 09:09 Dose: 2 tablet Documented by: Sodium Chloride () 10 - 40 ml IV UD PRN PRN Reason: SALINE FLUSH Last Admin: 09/17/19 05:04 Dose: 20 ml Documented by: Discharge Diet: No Restrictions Home Medications: Medications to take at Discharge Bupropion HCl [Wellbutrin Sr] 150 mg PO DAILY 09/08/19 Furosemide [Lasix] 20 mg PO DAILY 09/14/19 Acetaminophen [Tylenol Tablet] 650 mg PO Q6H PRN PRN tab 09/17/19 Albuterol Aerosols [Ventolin Aerosols] 2.5 mg INHALATION Q2H PRN PRN vial.neb. 09/17/19 Ipratropium/Albuterol Sulfate [Duoneb] 3 ml INHALATION Q4H.RT ampul.neb 09/17/19 Prednisone 10 mg PO DAILY #16 tab 09/17/19 Following Prescrptions Were Given to Patient: Prednisone 10 mg PO DAILY #16 tab Primary Care Physician: Sandy Lucio DO [NON-STAFF] - Within 2 Weeks Please Follow Up With: HAWA WHALEN Please Follow Up With: Maxi Torres DO When: 2-4 weeks Disposition: Care Home facility Minutes spent on discharge:: 32 Patient Condition:: Good Medical Necessity - Tobacco Use Smoking Status: Current every day smoker Tobacco Use: Cigarettes Meaningful Use Info Meaningful Use Diagnoses (Choose all that apply): None applicable Code Visit Inpatient E&M: 84407 Disch Hosp
--- NOTE | 2019-09-17 14:17 | CASEMGMT ---
Patient was approved to go to TCU. SW notified patient, RN, area secretary, and charge manager. Plan: d/c to [facility] TCU under skilled level of care. Ailyn [place]
--- NOTE | 2019-09-17 14:36 | PHA.DC.MR ---
Pharmacy Service has performed discharge medication reconciliation for this patient upon transfer to TCU. Of note; pt's home medication list contained the wrong formulation of Bupropion. Contacted discharging physician and had formulation changed to XL, rather than SR formulation. The patient's discharge medication list was reviewed for discrepancies and discrepancies were resolved. Home Medications Furosemide [Lasix] 20 mg PO DAILY 09/14/19 Acetaminophen [Tylenol Tablet] 650 mg PO Q6H PRN PRN tab 09/17/19 Albuterol Aerosols [Ventolin Aerosols] 2.5 mg INHALATION Q2H PRN PRN vial.neb. 09/17/19 Bupropion HCl [Bupropion Xl] 150 mg PO DAILY 09/17/19 Ipratropium/Albuterol Sulfate [Duoneb] 3 ml INHALATION Q4H.RT ampul.neb 09/17/19 Prednisone 10 mg PO DAILY #16 tab 09/17/19
== END 2019-09-17 14:11 | disposition skilled nursing facility (03) | DRG 870 ==
LOC: ED 16:20 → ICU 09-09 08:03 → PCU 09-15 13:32 → ICU 09-16 13:26 → PCU 09-16 13:26
PROVIDERS: Hospitalist; Internal Medicine; Internal Medicine Critical Care Medicine; Physician Assistant; Admitting Provider Family Medicine; Emergency Provider Emergency Medicine; PCP Family Medicine; Referring Provider Family Medicine
DX: A41.9 Sepsis, unspecified organism (principal); J96.01 Acute respiratory failure with hypoxia; J15.6 Pneumonia due to other Gram-negative bacteria; J96.02 Acute respiratory failure with hypercapnia; J44.0 Chronic obstructive pulmonary disease with (acute) lower respiratory infection; J44.1 Chronic obstructive pulmonary disease with (acute) exacerbation; Z68.42 Body mass index [BMI] 45.0-49.9, adult; I16.0 Hypertensive urgency; R65.20 Severe sepsis without septic shock; F17.210 Nicotine dependence, cigarettes, uncomplicated; E66.01 Morbid (severe) obesity due to excess calories; G47.33 Obstructive sleep apnea (adult) (pediatric); I10 Essential (primary) hypertension; F32.9 Major depressive disorder, single episode, unspecified; R53.81 Other malaise
CPT/HCPCS: 31500; 31720; 36415; 36569; 36600; 71045; 71275; 80048; 80053; 82550; 82803; 82962; 83605; 83735; 84100; 84478; 84484; 85025; 85379; 87040; 87070; 87205; 87449; 87633; 87641; 87804; 93005; 93970; 94002; 94003; 94640; 94660; 94667; 94668; 97110; 97116; 97162; 97166; 97530; 97535; 97802; 99251; 99285; 99406; J7030; J7040; J7050; Q9967; A4216; G0463

== ENCOUNTER 2019-09-17 14:41 | Inpatient (IN) | payer OTHER, SELFPAY ==
[2019-09-09 08:02] VITALS: BMI 45.1
[2019-09-17 15:02] VITALS: BP 155/95; PULSE 82; RESP 18; TEMP 36.3; O2SAT 91
[2019-09-17 15:03] VITALS: BMI 43.9
[2019-09-17 15:16] VITALS: BP 155/95; PULSE 82; RESP 18; TEMP 36.3; O2SAT 91
[2019-09-17 15:17] VITALS: BMI 44.0
[2019-09-17 16:01] VITALS: PULSE 82; O2SAT 91
[2019-09-17] MEDS: Ipratropium/Albuterol Sulfate 3 ML AMPUL.NEB INHALATION (19:50)
[2019-09-17 19:54] VITALS: PULSE 78; RESP 16; O2SAT 95
--- NOTE | 2019-09-17 21:22 | HP.PCM_ITS ---
Problem List (1) Debility Status: Acute (2) Community acquired pneumonia Status: Acute (3) COPD exacerbation Status: Acute (4) Depression Status: Chronic (5) Tobacco abuse Status: Chronic (6) Body mass index (BMI) 40.0-44.9, adult Status: Chronic (7) SREE (obstructive sleep apnea) Status: Chronic (8) Acute respiratory failure with hypoxia Status: Acute (9) Sepsis Status: Acute (10) HTN (hypertension) Status: Chronic History of Present Illness Date of Admission: 09/17/19 Chief Complaint: Here for rehabilitation, strengthening, prior to discharge home with . The patient is a 44 year old Female with below past medical history presented to [facility] Emergency Department 09/08/2019 with fever, cough. 09/08/2019 EKG normal sinus rhythm, minimal voltage criteria for LVH, maybe normal variant, nonspecific T wave abnormality. 09/08/2019 CTA chest showed no large pulmonary embolism, possible viral pneumonia. Cough, shortness of breath, cough productive. Patient has obstructive sleep apnea, but CPAP intolerable. Pneumonia 12 years ago, current every day smoker. WBC 16.3, Hemoglobin 15, Hematocrit 47, BMP okay. Troponin negative, Lactate 1.3. Rapid flu negative. Chest X-ray showed right lower lobe infiltrate. D-dimer 1.27. BiPAP applied with improvement in respiratory status. Duoneb, Albuterol, Solu-Medrol, Rocephin, Azithromycin given. 09/08/2019 Admit to Hospital. Rocephin, Azithromycin for pneumonia. Aerosols, steroids for COPD exacerbation. BiPAP, oxygen for acute hypoxic respiratory failure. 09/09/2019 Dr. Torres, patient intubated overnight. Continue antibiotics, bronchodilators, steroids. Fentanyl, Propofol for sedation. Start Tube feeding. 09/09/2019 Doppler ultrasound of legs NEGATIVE DVT. Wean oxygen. Gram negative pneumonia treated with Zosyn thru 09/15/2019. Wean steroids for COPD Exacerbation. BiPAP for obstructive sleep apnea, patient non compliant at home. 09/17/2019 Admit to TCU with debility, here for rehabilitation, strengthening, prior to discharge home with . Past Medical History Past Medical History (Chronic Problems): Chronic Problems SREE (obstructive sleep apnea) (Chronic) Morbid obesity (Chronic) HTN (hypertension) (Chronic) Depression (Chronic) Tobacco abuse (Chronic) Body mass index (BMI) 40.0-44.9, adult (Chronic) Allergies Fmkxika-Pla-Rzu Reductase Inhibitor Allergy (Verified 09/08/19 15:56) Swelling Home Medications: Ambulatory Orders Medication Instructions Recorded Furosemide [Lasix] 20 mg PO DAILY 09/14/19 Acetaminophen [Tylenol Tablet] 650 mg PO Q6H PRN PRN tab 09/17/19 Albuterol Aerosols [Ventolin 2.5 mg INHALATION Q2H PRN PRN 09/17/19 Aerosols] vial.neb. 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 Denies: Chills, Fever, Weight Change HEENT: Denies: Head Aches, Sinus Congestion, Sinus Drainage Cardiovascular: Denies: Chest Pain, Palpitations Respiratory: Denies: Cough, Shortness of breath at rest, Sputum production Gastrointestinal: Denies: Abdominal Pain, Nausea, Vomiting Genitourinary: Denies: Dysuria Musculoskeletal: Denies: Joint Pain, Joint Tenderness Skin: Denies: Rash, Wounds Neurological: Denies: Numbness, Tingling, Focal weakness Psychiatric: Denies: Anxiety, Depression, Homicidal Ideations, Suicidal Ideations Hematologic/ Lymphatic: Denies: Easy Bruising, Easy Bleeding VTE Information - Inpt Only VTE Present on Admission: No VTE Mechan Device Prophylaxis: Knee High LINUS Hose VTE Pharm Prophylaxis ordered?: Yes Patient Problems: Active and Suspected Problems Debility (Acute) Community acquired pneumonia (Acute) COPD exacerbation (Acute) - Physical Exam Vitals/I&O's: Vital Signs Temp Pulse Resp BP Pulse Ox 97.3 F L 78 16 155/95 H 95 09/17/19 15:16 09/17/19 19:54 09/17/19 19:54 09/17/19 15:16 09/17/19 19:54 Oxygen Delivery Method Room Air Weight: 116.233 kg Body Mass Index (BMI) 43.9 Intake and Output for Last 24 Hours 09/15/19 09/16/19 09/17/19 23:59 23:59 23:59 Intake Total 240 / 240 Balance 240 / 240 General: Alert, Oriented x3, Cooperative HEENT: Atraumatic, PERRLA, EOMI, Normocephalic Neck: Supple, No JVD, Negative Carotid Bruits Lungs: Diminished, Wheezes Cardiovascular: Regular rate, No murmurs Abdomen: Bowel Sounds Present, Soft, Non Tender Extremities: No edema, Capillary Refill Less than 3 Seconds Skin: No rashes, No breakdown Musculoskeletal: No Tenderness to Palpation of Joints or Extremities Neurological: Cranial nerves II-XII grossly intact Psych/Mental Status: Normal Affect, Appropriate Current Medications Acetaminophen (Tylenol) 650 mg PO Q6H PRN PRN PRN Reason: Pain Score 1-10/Temp > 100.7 F Albuterol Sulfate (Ventolin Aerosols) 2.5 mg INHALATION Q2H PRN PRN PRN Reason: SOB/WHEEZING Albuterol/Ipratropium (Duoneb) 3 ml INHALATION Q4H.RT [facility] Last Admin: 09/17/19 19:50 Dose: 3 ml Documented by: Bupropion HCl (Wellbutrin Xl) 150 mg PO DAILY [facility] Furosemide (Lasix) 20 mg PO DAILY [facility] Heparin Sodium (Beef Lung) () 50 units IV UD PRN PRN Reason: PICC Line Heparin Flush Prednisone () 30 mg PO DAILY@0800 [facility]; Taper Stop: 09/27/19 07:59 Sodium Chloride () 10 - 40 ml IV UD PRN PRN Reason: Open End PICC Flush Sodium Chloride (0.9% Nacl (Sterile) Posiflush) 10 - 40 ml IV UD PRN PRN Reason: Port access or dressing change Tuberculin PPD (Tubersol, Aplisol, Ppd) 5 tu ID X1 ONE Stop: 09/18/19 10:01 Tuberculin PPD (Tubersol, Aplisol, Ppd) 5 tu ID X1 ONE Stop: 09/25/19 10:01 Assessment/Plan All Active Problems Acute respiratory failure with hypoxia (Acute) Pneumonia (Acute) Sepsis (Acute) Debility (Acute) Community acquired pneumonia (Acute) COPD exacerbation (Acute) 44 year old female with below past medical history hospitalized for pneumonia, complicated by acute hypoxic respiratory failure requiring intubation, admitted to TCU with debility, here for rehabilitation, strengthening, prior to discharge home with . * Debility - PT/OT. * Dysarthria(Intubation) - ST. * Pain - Tylenol 650MG Q6H PRN pain (1-10) * Bowel - Miralax 17GM daily, Senna/colace 1 tablet BID, Dulcolax 10MG daily PRN. * DVT prophylaxis - Lovenox 40MG SC daily. * COPD - Duoneb 3ML Q4H, Albuterol 2.5MG Q2H, Prednisone taper, will need PFT as outpatient. * Depression - Wellbutrin XL 150MG daily. * Edema - Lasix 20MG daily. * Tobacco Abuse - Recommend smoking cessation. * BMI 44 - Recommend diet, exercise. * Obstructive sleep apnea - positive pressure ventilation, will need PSG as outpatient.
[2019-09-17] MEDS: 0.9% Saline Lock 10 ML Syringe IV (22:24)
--- NOTE | 2019-09-18 04:04 | NURSING ---
This nurse was doing her rounds and notice pt was self transferring from the bathroom to her chair by herself. I educated pt on importance of using her call light. Pt states, when I got to use the toilet I should be able to get up and use it. Rn made aware.
[2019-09-18 05:41] LABS: Hematocrit 38.6 % (37-47); Hemoglobin 12.6 g/dL (12.0-15.0); Mean Corp Hgb Conc 32.6 g/dL (32-36); Mean Corpuscular Hgb 29.9 pg (27.0-32.0); Mean Corpuscular Volume 91.7 fL (81-99); Mean Platelet Vol. 10.8 fl (6.2-12.0); POSITIVE COUNT YES; POSITIVE MORPHOLOGY YES; Platelet Count 272 K/mm3 (150-450); RBC Distribution Width CV 14.1 % (11.6-14.6); RBC Distribution Width SD 47.2 fl (35.1-43.9); Red Blood Count 4.21 M/mm3 (4.2-5.4); White Blood Count 12.6 K/mm3 (4.4-11.0)
[2019-09-18] MEDS: Furosemide 20 MG Tablet PO (05:42)
[2019-09-18] MEDS: buPROPion (XL) 150 MG TABLET.XL PO (05:42)
[2019-09-18] MEDS: Enoxaparin 40 MG/0.4 ML Syringe SC (05:42)
[2019-09-18 05:45] VITALS: RESP 16; O2SAT 96
[2019-09-18 06:02] LABS: Anion Gap 6 (5-15); BUN 28 mg/dL (7-18); BUN/Creat Ratio 30.8 RATIO (10-20); Calcium,Total 8.7 mg/dL (8.5-10.1); Chloride 110 mmol/L (98-107); Creatinine, Serum 0.91 mg/dL (0.55-1.02); EST Glomerular Filtration Rate 71 mL/min (>60); Est Glom Filt Rate - Afr Amer 86 mL/min (>60); Estimated Creatinine Clearance 66.71 ml/min; Glucose 90 mg/dL (74-106); Potassium 3.5 mmol/L (3.5-5.1); Sodium Level 143 mmol/L (136-145)
[2019-09-18 06:30] LABS: Differential Indicated MANUAL DIFF
[2019-09-18 06:42] LABS: Eosinophil 2 % (0-5); Lymphocyte 9 % (19-41); Metamyelocyte 4 % (0-1); Monocyte 8 % (0-10); Neutrophil-Band 12 % (0-5); Neutrophil-Segmented 65 % (47-70); Total Cells Counted 100 (MANUAL DIFF)
[2019-09-18 06:43] LABS: Absolute Lymphocyte Count 1.13 X10^3/uL (0.83-4.51); Absolute Neutrophil Count 9.7 X10^3/uL (2.0-7.7); Lymphocyte # 1.13 X10^3/ul (4.0); Platelet Estimate ADEQUATE (ADEQ)
[2019-09-18 06:44] LABS: Red Cell Morphology NORM C+C NORMAL (NORM C&C)
[2019-09-18] MEDS: predniSONE 10 MG Tablet 30 MG PO (07:52)
[2019-09-18 08:31] VITALS: O2SAT 96
[2019-09-18] MEDS: Tuberculin,Purif.prot.deriv. 50 TU/ML Vial 5 ML ID (11:44)
[2019-09-18 14:24] VITALS: BP 131/81; PULSE 76; RESP 16; TEMP 36.9; O2SAT 94
--- NOTE | 2019-09-18 17:02 | CASEMGMT ---
Social Work Reviewed and agreed with social work regulatory intern documentation on this date. Pooja Pendleton, SOLUTION DESIGN AND ANALYSIS MANAGER CAREER CONSULTANT
[2019-09-18] MEDS: Ipratropium/Albuterol Sulfate 3 ML AMPUL.NEB INHALATION (19:39)
[2019-09-18 19:40] VITALS: PULSE 75; RESP 16
--- NOTE | 2019-09-18 21:38 | NURSING ---
PICC discontinues to LUE. Pt tolerated well. Tip intact, 46cm. Petroleum jelly, 2x2 and [id number] applied over site. Pt instructed to lie flat for 30min. Educated on importance of letting staff know if she notices any pain/bleeding at site. Pt in agreement. Call light in reach.
[2019-09-19] MEDS: buPROPion (XL) 150 MG TABLET.XL PO (05:05)
[2019-09-19] MEDS: Furosemide 20 MG Tablet PO (05:05)
[2019-09-19] MEDS: Enoxaparin 40 MG/0.4 ML Syringe SC (05:06)
[2019-09-19 07:11] VITALS: PULSE 86; RESP 16; O2SAT 98
[2019-09-19] MEDS: Ipratropium/Albuterol Sulfate 3 ML AMPUL.NEB INHALATION ×3 (07:11→18:30)
[2019-09-19] MEDS: predniSONE 10 MG Tablet 30 MG PO (07:59)
--- NOTE | 2019-09-19 08:03 | NURSING ---
PT REFUSING TEDHOSE. EDUCATED PT ON TEDHOSE. PT STATED YOU KNOW JOB UP WALKING AND HAVE MY SHOES ON,SO NO. RN AWARE.
[2019-09-19 08:29] VITALS: PULSE 72; RESP 18; O2SAT 96
[2019-09-19 09:23] LABS: Pathologist Review Reviewed
[2019-09-19 10:50] VITALS: PULSE 70; RESP 16
[2019-09-19 13:35] VITALS: BP 120/69; PULSE 77; RESP 16; TEMP 36.3; O2SAT 92
[2019-09-19 15:10] VITALS: PULSE 80; RESP 16
--- NOTE | 2019-09-19 16:14 | CASEMGMT ---
Social Work Spoke with pt whom is requesting to discharge home 09/19. Spoke with IDT and agreeable to DC. Pt chose [facility] for outpatient PT - referral made. Pt requested a FWW - referral made to [facility]. Plan: DC home with 09/19 with [facility] outpatient PT, [facility]WW Pooja Pendleton, SERVICE INSPECTOR VOICE WRITING REPORTER
[2019-09-19 18:30] VITALS: PULSE 76; RESP 20
--- NOTE | 2019-09-19 20:59 | PCM.DC ---
- Discharge Diagnoses Current Active Problems: Current Active and Chronic Problems Debility (Acute) Community acquired pneumonia (Acute) COPD exacerbation (Acute) Depression (Chronic) Tobacco abuse (Chronic) Body mass index (BMI) 40.0-44.9, adult (Chronic) You will use the following diet at home:: No restrictions, Regular Your food should be the consistency of: Regular Your liquids should be the consistency of: Regular/Thin Discharge Activity: Return to Normal Activity, May Shower, Use Walker Weight Bearing Status: Weight bearing as tolerated Call your doctor if you observe: Fever of 101 or Higher, Inability to urinate, Inability to have a bowel movement, Shortness of breath, Chest pain, Uncontrolled pain Allergies/Adverse Reactions: Allergies Ccqhiav-Tho-Gec Reductase Inhibitor Allergy (Verified 09/08/19 15:56) Swelling Medications to take at Discharge Bupropion HCl [Bupropion Xl] 150 mg PO DAILY 09/17/19 Melatonin 10 mg PO QHS tablet 09/19/19 Prednisone See Taper PO DAILY #12 tab 09/19/19 The following prescriptions were given: Prednisone See Taper PO DAILY #12 tab Transmission Status: Pending to [facility]/pharmacy #[id number] Primary Care Physician: Shireen Diego DO [Primary Care Provider] - Please follow up with your Primary Care Physician in: 1 week. Test Results: Test results from this visit will be discussed in further detail at your follow-up appointment, if applicable. Please Follow Up With: Maxi Torres DO When: 2-4 wks Please Follow Up With: Jocelyn Diego DO PCP When: after TCU DC Proposed Discharge Date: 09/20/19
--- NOTE | 2019-09-19 21:01 | PCM.DC.SUM ---
Discharge Date and Diagnosis - Problem List Patient Problems: Active and Suspected Problems Debility (Acute) Community acquired pneumonia (Acute) COPD exacerbation (Acute) Date of Admission: 09/17/19 Date of Discharge: 09/20/19 - Primary Discharge Diagnosis Active and Suspected Problems Debility (Acute) Community acquired pneumonia (Acute) COPD exacerbation (Acute) - Secondary Discharge Diagnosis Chronic Problems SREE (obstructive sleep apnea) (Chronic) Morbid obesity (Chronic) HTN (hypertension) (Chronic) Depression (Chronic) Tobacco abuse (Chronic) Body mass index (BMI) 40.0-44.9, adult (Chronic) Hospital Course and Treatment Imaging Results: 09/18/19 11:46 Diet: Regular Diet Food consistency:: Regular Liquid Consistency:: Regular/Thin Is pt able to select menu?: Yes Labs (Last 48 Hours) 09/18/19 09/18/19 05:05 05:05 WBC 12.6 H RBC 4.21 Hgb 12.6 Hct 38.6 MCV 91.7 MCH 29.9 MCHC 32.6 RDW Std Deviation 47.2 H RDW Coeff of Km 14.1 Plt Count 272 MPV 10.8 Neut % (Auto) Not Reportable Absolute Neuts (auto) 9.7 H Absolute Lymphs (auto) 1.13 Total Counted 100 Neutrophils % (Manual) 65 Band Neutrophils % 12 H Lymphocytes % (Manual) 9 L Monocytes % (Manual) 8 Eosinophils % (Manual) 2 Metamyelocytes % 4 H Diff Path Review Reviewed Platelet Estimate ADEQUATE RBC Morphology NORM C+C Sodium 143 Potassium 3.5 Chloride 110 H Carbon Dioxide 27.0 Anion Gap 6 BUN 28 H Creatinine 0.91 Estim Creat Clear Calc 66.71 Est GFR (MDRD) Af Amer 86 Est GFR (MDRD) Non-Af 71 BUN/Creatinine Ratio 30.8 H Glucose 90 Calcium 8.7 Operations: None Procedures: None Summary of Care Provided: The patient is a 44 year old Female with below past medical history hospitalized for pneumonia, complicated by acute hypoxic respiratory failure requiring intubation, admitted to TCU with debility, here for rehabilitation, strengthening, prior to discharge home with . Recommend smoking cessation. Discharge home with , Kristopher Mckeon outpatient PT, [employer] Front Wheeled Walker. Patient Problems: Active and Suspected Problems Debility (Acute) Community acquired pneumonia (Acute) COPD exacerbation (Acute) - Physical Exam Vitals/I&O's: Vital Signs Temp Pulse Resp BP Pulse Ox 97.4 F L 76 20 H 120/69 92 09/19/19 13:35 09/19/19 18:30 09/19/19 18:30 09/19/19 13:35 09/19/19 13:35 Oxygen Delivery Method Room Air Weight: 116.233 kg Body Mass Index (BMI) 43.9 Intake and Output for Last 24 Hours 09/17/19 09/18/19 09/19/19 23:59 23:59 23:59 Intake Total 240 / 240 720 / 720 720 / 720 Balance 240 / 240 720 / 720 720 / 720 Laboratory Results 09/18/19 05:05: Diff Path Review Reviewed Current Medications Acetaminophen (Tylenol) 650 mg PO Q6H PRN PRN PRN Reason: Pain Score 1-10/Temp > 100.7 F Albuterol Sulfate (Ventolin Aerosols) 2.5 mg INHALATION Q2H PRN PRN PRN Reason: SOB/WHEEZING Albuterol/Ipratropium (Duoneb) 3 ml INHALATION Q4H.RT [facility] Last Admin: 09/19/19 18:30 Dose: 3 ml Documented by: Bisacodyl (Dulcolax) 10 mg PO DAILY PRN PRN Reason: Constipation Bupropion HCl (Wellbutrin Xl) 150 mg PO DAILY [facility] Last Admin: 09/19/19 05:05 Dose: 150 mg Documented by: Enoxaparin Sodium (Lovenox) 40 mg SC DAILY@0600 [facility] Last Admin: 09/19/19 05:06 Dose: 40 mg Documented by: Furosemide (Lasix) 20 mg PO DAILY [facility] Last Admin: 09/19/19 05:05 Dose: 20 mg Documented by: Heparin Sodium (Beef Lung) () 50 units IV UD PRN PRN Reason: PICC Line Heparin Flush Melatonin (Melatonin) 10 mg PO QHS [facility] Polyethylene Glycol (Miralax) 17 gm PO DAILY [facility] Last Admin: 09/19/19 05:06 Dose: Not Given Documented by: Prednisone () 30 mg PO DAILY@0800 [facility]; Taper Stop: 09/27/19 07:59 Last Admin: 09/19/19 07:59 Dose: 30 mg Documented by: Senna/Docusate Sodium (Senokot-S, Soledad-Colace) 1 tablet PO BID [facility] Last Admin: 09/19/19 17:11 Dose: Not Given Documented by: Sodium Chloride () 10 - 40 ml IV UD PRN PRN Reason: Open End PICC Flush Last Admin: 09/17/19 22:24 Dose: 20 ml Documented by: Sodium Chloride (0.9% Nacl (Sterile) Posiflush) 10 - 40 ml IV UD PRN PRN Reason: Port access or dressing change Tuberculin PPD (Tubersol, Aplisol, Ppd) 5 tu ID X1 ONE Stop: 09/25/19 10:01 Discharge Diet: No Restrictions Discharge Activity: Return to Normal Activity, May Shower, Use Walker Weight Bearing Status: Weight bearing as tolerated Call your doctor if you observe: Fever of 101 or Higher, Inability to urinate, Inability to have a bowel movement, Shortness of breath, Chest pain, Uncontrolled pain Home Medications: Medications to take at Discharge Bupropion HCl [Bupropion Xl] 150 mg PO DAILY 09/17/19 Melatonin 10 mg PO QHS tablet 09/19/19 Prednisone See Taper PO DAILY #12 tab 09/19/19 Following Prescrptions Were Given to Patient: Prednisone See Taper PO DAILY #12 tab Transmission Status: Pending to [facility]/pharmacy #[id number] Primary Care Physician: Shireen Diego DO [Primary Care Provider] - Please follow up with your Primary Care Physician in: 1 week. Please Follow Up With: Maxi Torres DO When: 2-4 wks Please Follow Up With: Jocelyn Diego DO PCP When: after TCU DC Disposition: Home Minutes spent on discharge:: 30 Patient Condition:: Stable Medical Necessity - Tobacco Use Smoking Status: Current every day smoker Tobacco Use: Cigarettes Meaningful Use Info Meaningful Use Diagnoses (Choose all that apply): None applicable
[2019-09-19] MEDS: MELATONIN 10 MG TABLET PO (21:49)
[2019-09-20] MEDS: Furosemide 20 MG Tablet PO (05:23)
[2019-09-20] MEDS: Enoxaparin 40 MG/0.4 ML Syringe SC (05:23)
[2019-09-20] MEDS: buPROPion (XL) 150 MG TABLET.XL PO (05:24)
[2019-09-20] MEDS: Ipratropium/Albuterol Sulfate 3 ML AMPUL.NEB INHALATION (06:50)
[2019-09-20 06:52] VITALS: PULSE 91; RESP 18; O2SAT 95
[2019-09-20] MEDS: predniSONE 10 MG Tablet 30 MG PO (07:50)
[2019-09-20 09:10] VITALS: PULSE 73; RESP 18; O2SAT 96
--- NOTE | 2019-09-20 09:24 | CASEMGMT ---
Social Work BIMS and PHQ-9 completed for MDS assessment. Pooja Pendleton, NOVELTY CHAIN MAKER TUBING ASSEMBLER
[2019-09-20 09:28] VITALS: BP 154/78; PULSE 71; RESP 16; TEMP 36.9; O2SAT 94
--- NOTE | 2019-09-26 09:44 | MDS.RN ---
Information for the mds was obtained from review of the clinical record, interview of resident, staff, and direct observation of resident's care.
== END 2019-09-20 10:50 | disposition home or self-care (01) | DRG 190 ==
PROVIDERS: Admitting Provider Family Medicine Geriatric Medicine; PCP Family Medicine; Referring Provider Family Medicine Geriatric Medicine; Visit Provider Family Medicine Geriatric Medicine
DX: J44.0 Chronic obstructive pulmonary disease with (acute) lower respiratory infection (principal); J15.6 Pneumonia due to other Gram-negative bacteria; Z68.41 Body mass index [BMI] 40.0-44.9, adult; J44.1 Chronic obstructive pulmonary disease with (acute) exacerbation; F32.9 Major depressive disorder, single episode, unspecified; G47.33 Obstructive sleep apnea (adult) (pediatric); I10 Essential (primary) hypertension; E66.01 Morbid (severe) obesity due to excess calories; F17.210 Nicotine dependence, cigarettes, uncomplicated; Z91.19 Patient's noncompliance with other medical treatment and regimen
CPT/HCPCS: 36415; 80048; 85025; 94640; 97110; 97116; 97161; 97165; 97530; 97535; 97802; 99406; A4216